=== PATIENT | female | born 1955 | race Caucasian/White ===

== ENCOUNTER 2020-03-11 07:48 | Outpatient (REF) | payer MEDICARE, OTHER, SELFPAY | END 2020-03-11 07:49 | disposition home or self-care (01) | LOC: HO.MDS 07:48 | PROVIDERS: Visit Provider Psychiatry & Neurology Neurology | DX: G35 Multiple sclerosis (principal) | CPT/HCPCS: 96365; J2930 ==

== ENCOUNTER 2020-04-05 07:46 | Outpatient (REF) | payer MEDICARE, OTHER, SELFPAY | END 2020-04-05 07:47 | disposition home or self-care (01) | LOC: HO.MDS 07:46 | PROVIDERS: Visit Provider Internal Medicine Pulmonary Disease | DX: J45.909 Unspecified asthma, uncomplicated (principal) | CPT/HCPCS: 96365; J2930 ==

== ENCOUNTER 2020-05-03 07:49 | Outpatient (REF) | payer MEDICARE, OTHER, SELFPAY | END 2020-05-03 07:50 | disposition home or self-care (01) | LOC: HO.MDS 07:49 | PROVIDERS: Visit Provider Psychiatry & Neurology Neurology | DX: G35 Multiple sclerosis (principal) | CPT/HCPCS: 96365; J2930 ==

== ENCOUNTER 2020-05-31 08:01 | Outpatient (REF) | payer MEDICARE, OTHER, SELFPAY | END 2020-05-31 08:02 | disposition home or self-care (01) | LOC: HO.MDS 08:01 | PROVIDERS: Visit Provider Psychiatry & Neurology Neurology | DX: G35 Multiple sclerosis (principal) | CPT/HCPCS: 96365; J2930 ==

== ENCOUNTER 2020-06-29 07:52 | Outpatient (REF) | payer MEDICARE, OTHER, SELFPAY | END 2020-06-29 07:53 | disposition home or self-care (01) | LOC: HO.MDS 07:52 | PROVIDERS: Visit Provider Psychiatry & Neurology Neurology | DX: G35 Multiple sclerosis (principal) | CPT/HCPCS: 96365; J2930 ==

== ENCOUNTER 2020-07-22 07:49 | Outpatient (REF) | payer MEDICARE, OTHER, SELFPAY | END 2020-07-22 07:50 | disposition home or self-care (01) | LOC: HO.MDS 07:49 | PROVIDERS: Visit Provider Psychiatry & Neurology Neurology | DX: G35 Multiple sclerosis (principal) | CPT/HCPCS: 96365; J2930 ==

== ENCOUNTER 2020-08-18 08:11 | Outpatient (REF) | payer MEDICARE, OTHER, SELFPAY | END 2020-08-18 08:12 | disposition home or self-care (01) | LOC: HO.MDS 08:11 | PROVIDERS: Visit Provider Psychiatry & Neurology Neurology | DX: G35 Multiple sclerosis (principal) | CPT/HCPCS: 96365; J2930 ==

== ENCOUNTER 2020-08-25 06:58 | Outpatient (REF) | payer MEDICARE, OTHER, SELFPAY ==
[2020-08-25 08:35] LABS: Blood Urea Nitrogen 34 mg/dL (9-16); Estimated Glomerular Filt Rate > 60
== END 2020-08-25 06:59 | disposition home or self-care (01) ==
LOC: HO.LAB 06:58
PROVIDERS: PCP Internal Medicine; Visit Provider Psychiatry & Neurology Neurology
DX: G35 Multiple sclerosis (principal)
CPT/HCPCS: 36415; 82565; 84520

== ENCOUNTER 2020-08-26 08:37 | Outpatient (REF) | payer MEDICARE, OTHER, SELFPAY ==
--- NOTE | ~2020-08-26 | MR_ITS ---
EXAMINATION: MR BRAIN WITHOUT AND WITH CONTRAST CLINICAL INFORMATION: MS. COMPARISON: Brain MRI 01/22/2009 TECHNIQUE: Multiplanar, multisequence imaging of the brain was performed before and after the intravenous administration of 8 mL of Gadavist. FINDINGS: There is no acute infarction, hemorrhage, mass, or extra-axial fluid collection. There is redemonstration of mild to moderate scattered foci of T2/FLAIR hyperintensity involving the juxtacortical, deep, and periventricular cerebral white matter in keeping with demyelinating plaques. No definitively new plaques are seen compared with 2008. A few infratentorial demyelinating plaques are seen. No enhancing plaques are seen. The ventricles are normal in size and configuration without evidence of hydrocephalus. No significant brain parenchymal volume loss is seen. The major arterial flow voids are preserved at the skull base. The orbital contents appear normal. MR/MR head/brain wo/w con IMPRESSION: Stable mild to moderate burden of scattered supratentorial and infratentorial demyelinating plaques without significant progression compared with 2009. No enhancing plaques. No acute intracranial abnormality. No mass is seen.
--- NOTE | ~2020-08-26 | MR_ITS ---
EXAMINATION: MR CERVICAL SPINE WITHOUT AND WITH CONTRAST CLINICAL INFORMATION: Multiple sclerosis. COMPARISON: Cervical spine MRI from 01/22/2009. TECHNIQUE: MRI of the cervical spine was obtained using routine sequences without and following the administration of 8 mL of Gadavist intravenous contrast. FINDINGS: Mild reversal the normal cervical lordosis centered on C4-C5. Mild degenerative retrolisthesis of C5 on C6. Advanced degenerative disc disease from C4-C7. Mild degenerative disc disease at all additional cervical levels. Associated mixed Modic type discogenic endplate changes including mild Modic type I discogenic edema from C4-C7. Mild marrow edema within the left-sided C3-C4 facets consistent with degenerative stress reaction. No additional suspicious marrow edema. Mild degenerative loss of C4 and C5 vertebral body heights. Otherwise, the vertebral body heights are well-maintained. Chronic increased T2 signal within the left lateral cord at C3 and right lateral cord at C5-C6 and C6-C7. There is also potential faintly increased T2 signal within the central/dorsal cord at the levels of C2, C3, and T2-T3. No abnormal contrast enhancement. Limited evaluation of the soft tissues of the neck without demonstrated abnormalities. The flow voids of the major cervical vessels are maintained. Normal appearance of the cervicomedullary junction and visualized posterior fossa. SPINAL LEVELS: C2-C3: Mild disc-osteophyte complex. There is no uncovertebral joint arthropathy. There is moderate bilateral facet joint arthropathy. There is no neural foraminal stenosis. There is no spinal canal stenosis. C3-C4: Mild disc-osteophyte complex. There is moderate left and no right uncovertebral joint arthropathy. There is moderate bilateral facet joint arthropathy. There is moderate left and no right neural foraminal stenosis. There is no spinal canal stenosis. C4-C5: Moderate disc-osteophyte complex. There is moderate bilateral uncovertebral joint arthropathy. There is moderate bilateral facet joint arthropathy. There is severe right and moderate left neural foraminal stenosis. There is mild spinal canal stenosis. C5-C6: Moderate disc-osteophyte complex. There is severe bilateral uncovertebral joint arthropathy. There is moderate bilateral facet joint arthropathy. There is severe bilateral neural foraminal stenosis. There is mild spinal canal stenosis. C6-C7: Mild disc-osteophyte complex. There is severe bilateral uncovertebral joint arthropathy. There is moderate bilateral facet joint arthropathy. There is severe bilateral neural foraminal stenosis. There is no spinal canal stenosis. C7-T1: Normal annular contour. There is no uncovertebral joint arthropathy. There is no facet joint arthropathy. There is no neural foraminal stenosis. There is no spinal canal stenosis. MR/MR cervical spine wo/w con IMPRESSION: 1. Chronic increased T2 signal within the cervical cord at the levels of C3, C5-C6, and C6-C7. Potential faintly increased T2 signal within the cord at the levels of C2, C3, and T2-T3 is new compared to 2009. No abnormal contrast enhancement at this time. 2. Moderate multilevel degenerative spondyloarthropathy of the cervical spine as described in detail above. Most notably, there is mild spinal canal stenosis at C4-C5 and C5-C6. Moderate to severe neural foraminal stenoses from C3-C7.
== END 2020-08-26 08:38 | disposition home or self-care (01) ==
LOC: HO.MRI 08:37
PROVIDERS: Visit Provider Psychiatry & Neurology Neurology
DX: G35 Multiple sclerosis (principal)
CPT/HCPCS: 70553; 72156; A9585

== ENCOUNTER 2020-09-15 07:49 | Outpatient (REF) | payer MEDICARE, OTHER, SELFPAY | END 2020-09-15 07:50 | disposition home or self-care (01) | LOC: HO.MDS 07:49 | PROVIDERS: PCP Internal Medicine; Visit Provider Psychiatry & Neurology Neurology | DX: G35 Multiple sclerosis (principal) | CPT/HCPCS: 96365; J2930 ==

== ENCOUNTER 2020-10-08 06:49 | Outpatient (REF) | payer MEDICARE, OTHER, SELFPAY ==
[2020-10-08 07:42] LABS: MANUAL DIFF FLAG NO
[2020-10-08 07:47] LABS: Basophils Percent Auto 0.7 % (0-2); Eosinophils Absolute Auto 0.3 X10*3/uL (0.0-0.4); Eosinophils Percent Auto 4.6 % (0-4); Hematocrit 44.1 % (37-47); Hemoglobin 13.6 g/dl (12.0-16.0); Imm Gran Abs Auto 0.01 X10*3/uL (0.00-0.03); Imm Gran Pct Auto 0.2 % (0.0-0.4); Lymphocytes Absolute Auto 1.9 X10*3/uL (1.2-4.9); Mean Corpuscular HGB Conc 30.8 g/dl (31.0-35.0); Mean Corpuscular Hemoglobin 27.7 pg (27.0-33.0); Mean Corpuscular Volume 89.8 fL (80-98); Mean Platelet Volume 10.8 fL (9.4-12.3); Monocytes Absolute Auto 0.4 X10*3/uL (0.1-1.2); Monocytes Percent Auto 6.6 % (2-11); Neutrophils Absolute Auto 3.3 X10*3/uL (2.0-8.3); Neutrophils Percent Auto 55.9 % (45-73); Platelet Count 191 X10*3/uL (160-400); Red Blood Count 4.91 X10*6/uL (4.20-5.50); Red Cell Distribution Width 13.5 % (11.0-16.0); White Blood Count 5.9 X10*3/uL (4.8-10.8)
[2020-10-08 08:12] LABS: Alanine Aminotransferase 80 U/L (0-31); Albumin Level 4.3 g/dL (3.5-5.0); Alkaline Phosphatase 98 U/L (39-117); Anion Gap 11 (12-20); Aspartate Amino Transferase 49 U/L (5-31); Bilirubin Total < 0.2 mg/dL (0.0-1.0); Blood Urea Nitrogen 40 mg/dL (9-16); Calcium 9.4 mg/dL (8.4-10.2); Carbon Dioxide 30 mmol/L (22-29); Chloride 108 mmol/L (96-108); Cholesterol 175 mg/dL; Estimated Glomerular Filt Rate > 60; Glucose Fasting 88 mg/dL (60-99); HDL Cholesterol 49 mg/dL; Potassium 4.7 mmol/L (3.3-5.1); Sodium 144 mmol/L (135-145); Total Protein 6.9 g/dL (6.5-8.0); Triglycerides 444 mg/dL
[2020-10-08 08:31] LABS: Glucose Urine UA NEG (NEG); Leukocyte Esterase Urine NEG (NEG); Nitrite Urine NEG (NEG); Urine Blood NEG (NEG); Urine Ketones NEG (NEG); Urine Protein NEG (NEG-TRACE)
[2020-10-08 08:33] LABS: TSH reflex Free T4 3.74 uIU/mL (0.32-4.0)
[2020-10-08 08:34] LABS: Appearance Urine CLEAR; Color Urine YELLOW
== END 2020-10-08 06:50 | disposition home or self-care (01) ==
LOC: HO.LAB 06:49
PROVIDERS: PCP Internal Medicine; Visit Provider Internal Medicine
DX: E78.00 Pure hypercholesterolemia, unspecified (principal); G35 Multiple sclerosis; J44.9 Chronic obstructive pulmonary disease, unspecified; K58.9 Irritable bowel syndrome, unspecified; E66.3 Overweight
CPT/HCPCS: 36415; 80053; 80061; 81003; 84443; 85025

== ENCOUNTER 2020-10-14 07:49 | Outpatient (REF) | payer MEDICARE, OTHER, SELFPAY | END 2020-10-14 07:50 | disposition home or self-care (01) | LOC: HO.MDS 07:49 | PROVIDERS: PCP Internal Medicine; Visit Provider Psychiatry & Neurology Neurology | DX: G35 Multiple sclerosis (principal) | CPT/HCPCS: 96365; J2930 ==

== ENCOUNTER 2020-11-11 07:43 | Outpatient (REF) | payer MEDICARE, OTHER, SELFPAY | END 2020-11-11 07:44 | disposition home or self-care (01) | LOC: HO.MDS 07:43 | PROVIDERS: PCP Internal Medicine; Visit Provider Psychiatry & Neurology Neurology | DX: G35 Multiple sclerosis (principal) | CPT/HCPCS: 96365; J2930 ==

== ENCOUNTER 2020-11-16 08:07 | Outpatient (REF) | payer MEDICARE, OTHER, SELFPAY ==
--- NOTE | ~2020-11-16 | XR_ITS ---
EXAMINATION: XR KNEES, STANDING AP XR KNEE, RIGHT CLINICAL INFORMATION: Right knee pain COMPARISON: Standing AP knees and right knee radiographs 06/09/2016. TECHNIQUE: Standing AP view of both knees is performed along with lateral and axial patella views of the right knee. FINDINGS: Right: There are osteoarthritic changes medial knee joint compartment with joint narrowing and spurring from the medial femoral condyle and medial tibial plateau. Osteophytes have progressed since prior imaging 2017. The lateral compartment shows chondrocalcinosis lateral meniscus. There is trace fluid suprapatellar bursa. Spurring at quadriceps insertion patella present. Patella shows no lateralization or tilting. There is no destructive process. Left: No definite knee joint compartment narrowing. No subchondral sclerosis or chondrocalcinosis. No destructive process. XR/XR knee standing BI IMPRESSION: Right: Osteoarthritic changes greatest medial compartment with joint narrowing and osteophytes. Lateral compartment meniscal chondrocalcinosis. Trace suprapatellar effusion. Left: No joint narrowing or visible chondrocalcinosis.
--- NOTE | ~2020-11-16 | XR_ITS ---
EXAMINATION: XR KNEES, STANDING AP XR KNEE, RIGHT CLINICAL INFORMATION: Right knee pain COMPARISON: Standing AP knees and right knee radiographs 06/09/2016. TECHNIQUE: Standing AP view of both knees is performed along with lateral and axial patella views of the right knee. FINDINGS: Right: There are osteoarthritic changes medial knee joint compartment with joint narrowing and spurring from the medial femoral condyle and medial tibial plateau. Osteophytes have progressed since prior imaging 2017. The lateral compartment shows chondrocalcinosis lateral meniscus. There is trace fluid suprapatellar bursa. Spurring at quadriceps insertion patella present. Patella shows no lateralization or tilting. There is no destructive process. Left: No definite knee joint compartment narrowing. No subchondral sclerosis or chondrocalcinosis. No destructive process. XR/XR knee RT 2V IMPRESSION: Right: Osteoarthritic changes greatest medial compartment with joint narrowing and osteophytes. Lateral compartment meniscal chondrocalcinosis. Trace suprapatellar effusion. Left: No joint narrowing or visible chondrocalcinosis.
== END 2020-11-16 08:08 | disposition home or self-care (01) ==
LOC: HO.HOSX 08:07
PROVIDERS: Visit Provider Orthopaedic Surgery
DX: M17.11 Unilateral primary osteoarthritis, right knee (principal)
CPT/HCPCS: 20610; 73560; 73565; 99212; J1040

== ENCOUNTER 2020-12-09 07:46 | Outpatient (REF) | payer MEDICARE, OTHER, SELFPAY | END 2020-12-09 07:47 | disposition home or self-care (01) | LOC: HO.MDS 07:46 | PROVIDERS: PCP Internal Medicine; Visit Provider Psychiatry & Neurology Neurology | DX: G35 Multiple sclerosis (principal) | CPT/HCPCS: 96365; J2930 ==

== ENCOUNTER 2020-12-15 06:10 | Outpatient (REF) | payer MEDICARE, OTHER, SELFPAY ==
--- NOTE | ~2020-12-15 | XR_ITS ---
EXAMINATION: XR FOOT, LEFT CLINICAL INFORMATION: Pain left foot. COMPARISON: May 23, 2017 TECHNIQUE: AP, lateral, and oblique views of the left foot. FINDINGS: There is some deformity from previous healed left first proximal phalanx fracture. No acute fracture or dislocation of the left foot is identified. The joint spaces are maintained. No significant soft tissue swelling is appreciated. Small Achilles calcaneal spur present. XR/XR foot LT min 3V IMPRESSION: No significant acute bony abnormality of the left foot identified.
== END 2020-12-15 06:11 | disposition home or self-care (01) ==
LOC: HO.HOSX 06:10
PROVIDERS: Visit Provider Physician Assistant
DX: M79.672 Pain in left foot (principal); S93.602A Unspecified sprain of left foot, initial encounter
CPT/HCPCS: 73630; 99202

== ENCOUNTER 2021-01-06 08:17 | Outpatient (REF) | payer MEDICARE, OTHER, SELFPAY | END 2021-01-06 08:18 | disposition home or self-care (01) | LOC: HO.MDS 08:17 | PROVIDERS: Visit Provider Psychiatry & Neurology Neurology | DX: G35 Multiple sclerosis (principal) | CPT/HCPCS: 96365; J2930 ==

== ENCOUNTER 2021-01-11 05:59 | Outpatient (REF) | payer MEDICARE, OTHER, SELFPAY ==
[2021-01-11 07:11] LABS: Alanine Aminotransferase 39 U/L (0-31); Albumin Level 4.4 g/dL (3.5-5.0); Alkaline Phosphatase 77 U/L (39-117); Anion Gap 12 (12-20); Aspartate Amino Transferase 30 U/L (5-31); Bilirubin Total 0.4 mg/dL (0.0-1.0); Blood Urea Nitrogen 30 mg/dL (9-16); Calcium 9.3 mg/dL (8.4-10.2); Carbon Dioxide 29 mmol/L (22-29); Chloride 107 mmol/L (96-108); Cholesterol 159 mg/dL; Estimated Glomerular Filt Rate > 60; Glucose Fasting 89 mg/dL (60-99); HDL Cholesterol 52 mg/dL; LDL Cholesterol Calculated 76 mg/dl; Potassium 4.1 mmol/L (3.3-5.1); Sodium 144 mmol/L (135-145); Total Protein 6.9 g/dL (6.5-8.0); Triglycerides 158 mg/dL
== END 2021-01-11 06:00 | disposition home or self-care (01) ==
LOC: HO.LAB 05:59
PROVIDERS: PCP Internal Medicine; Visit Provider Internal Medicine
DX: E78.00 Pure hypercholesterolemia, unspecified (principal)
CPT/HCPCS: 36415; 80053; 80061

== ENCOUNTER 2021-02-03 08:14 | Outpatient (REF) | payer MEDICARE, OTHER, SELFPAY | END 2021-02-03 08:15 | disposition home or self-care (01) | LOC: HO.MDS 08:14 | PROVIDERS: PCP Internal Medicine; Visit Provider Psychiatry & Neurology Neurology | DX: G35 Multiple sclerosis (principal) | CPT/HCPCS: 96365; J2930 ==

== ENCOUNTER 2021-03-03 07:48 | Outpatient (REF) | payer MEDICARE, OTHER, SELFPAY | END 2021-03-03 07:49 | disposition home or self-care (01) | LOC: HO.MDS 07:48 | PROVIDERS: PCP Internal Medicine; Visit Provider Psychiatry & Neurology Neurology | DX: G35 Multiple sclerosis (principal) | CPT/HCPCS: 96365; J2930 ==

== ENCOUNTER → 2021-03-10 11:57 | Outpatient (BNVA) | payer MEDICARE, OTHER, SELFPAY | PROVIDERS: Visit Provider Orthopaedic Surgery | DX: Z01.818 Encounter for other preprocedural examination (principal); M17.11 Unilateral primary osteoarthritis, right knee; G35 Multiple sclerosis; E78.00 Pure hypercholesterolemia, unspecified; Z87.891 Personal history of nicotine dependence; Z88.6 Allergy status to analgesic agent; Z88.8 Allergy status to other drugs, medicaments and biological substances; T78.49XA Other allergy, initial encounter | CPT/HCPCS: 99212 ==

== ENCOUNTER → 2021-03-25 09:28 | Outpatient (BNVA) | payer MEDICARE, OTHER, SELFPAY | PROVIDERS: PCP Internal Medicine; Visit Provider Orthopaedic Surgery | DX: M17.11 Unilateral primary osteoarthritis, right knee (principal); M25.561 Pain in right knee | CPT/HCPCS: 20610; 99212; J7318 ==

== ENCOUNTER 2021-03-31 07:46 | Outpatient (REF) | payer MEDICARE, OTHER, SELFPAY | END 2021-03-31 07:47 | disposition home or self-care (01) | LOC: HO.MDS 07:46 | PROVIDERS: PCP Internal Medicine; Visit Provider Psychiatry & Neurology Neurology | DX: G35 Multiple sclerosis (principal) | CPT/HCPCS: 96365; J2930 ==

== ENCOUNTER 2021-04-28 07:46 | Outpatient (REF) | payer MEDICARE, OTHER, SELFPAY | END 2021-04-28 07:47 | disposition home or self-care (01) | LOC: HO.MDS 07:46 | PROVIDERS: PCP Internal Medicine; Visit Provider Psychiatry & Neurology Neurology | DX: G35 Multiple sclerosis (principal) | CPT/HCPCS: 96365; J2930 ==

== ENCOUNTER → 2021-05-23 10:57 | Outpatient (BNVA) | payer MEDICARE, OTHER, SELFPAY | PROVIDERS: PCP Internal Medicine; Visit Provider Orthopaedic Surgery | DX: Z01.812 Encounter for preprocedural laboratory examination (principal); Z01.810 Encounter for preprocedural cardiovascular examination ==

== ENCOUNTER 2021-05-24 09:08 | Outpatient (REF) | payer MEDICARE, OTHER, SELFPAY ==
--- NOTE | 2021-05-24 09:17 | ECG_ITS ---
Test Reason : preop Blood Pressure : / mmHG Vent. Rate : 073 BPM Atrial Rate : 073 BPM P-R Int : 148 ms QRS Dur : 078 ms QT Int : 360 ms P-R-T Axes : 060 009 -10 degrees QTc Int : 396 ms Normal sinus rhythm Nonspecific ST abnormality Abnormal ECG When compared with ECG of 16-MAY-2019 08:45, T wave inversion no longer evident in Anterolateral leads Referred By: Jonathon Rodarte Electronically Signed By:MAGGIE ENGLE
[2021-05-24 09:26] LABS: MANUAL DIFF FLAG NO
[2021-05-24 09:35] LABS: Basophils Absolute Auto 0.1 X10*3/uL (0.0-0.2); Basophils Percent Auto 0.8 % (0-2); Eosinophils Absolute Auto 0.3 X10*3/uL (0.0-0.4); Eosinophils Percent Auto 4.2 % (0-4); Hematocrit 40.3 % (37.0-47.0); Hemoglobin 13.1 g/dl (12.0-16.0); Imm Gran Abs Auto 0.01 X10*3/uL (0.00-0.03); Imm Gran Pct Auto 0.2 % (0.0-0.4); Lymphocytes Absolute Auto 1.9 X10*3/uL (1.2-4.9); Lymphocytes Percent Auto 31.9 % (20-40); Mean Corpuscular HGB Conc 32.5 g/dl (31.0-35.0); Mean Corpuscular Hemoglobin 29.1 pg (27.0-33.0); Mean Corpuscular Volume 89.6 fL (80.0-98.0); Mean Platelet Volume 10.2 fL (9.4-12.3); Monocytes Absolute Auto 0.4 X10*3/uL (0.1-1.2); Monocytes Percent Auto 7.5 % (2-11); Neutrophils Absolute Auto 3.3 x10*3/uL (2.0-8.3); Neutrophils Percent Auto 55.4 % (45-73); Platelet Count 199 X10*3/uL (160-400); Red Cell Distribution Width 13.1 % (11.0-16.0); White Blood Count 5.9 X10*3/uL (4.8-10.8)
[2021-05-24 10:03] LABS: Alanine Aminotransferase 32 U/L (0-31); Albumin Level 4.4 g/dL (3.5-5.0); Alkaline Phosphatase 65 U/L (39-117); Anion Gap 14 (12-20); Aspartate Amino Transferase 25 U/L (5-31); Bilirubin Total 0.2 mg/dL (0.0-1.0); Blood Urea Nitrogen 34 mg/dL (9-16); Calcium 9.4 mg/dL (8.4-10.2); Carbon Dioxide 23 mmol/L (22-29); Chloride 112 mmol/L (96-108); Cholesterol 154 mg/dL; Estimated Glomerular Filt Rate 59; Glucose Fasting 99 mg/dL (60-99); HDL Cholesterol 44 mg/dL; LDL Cholesterol Calculated 50 mg/dl; Potassium 3.8 mmol/L (3.3-5.1); Sodium 145 mmol/L (135-145); Total Protein 6.9 g/dL (6.5-8.0); Triglycerides 304 mg/dL
[2021-05-24 10:25] LABS: TSH reflex Free T4 2.18 uIU/mL (0.32-4.0); Vitamin D 25-OH Total 28.6 ng/mL (>30)
[2021-05-24 11:33] LABS: Appearance Urine CLEAR; Color Urine YELLOW; Glucose Urine UA NEG (NEG); Leukocyte Esterase Urine NEG (NEG); Nitrite Urine NEG (NEG); Specific Gravity - Urine >= 1.030 (1.005-1.025); Urine Blood NEG (NEG); Urine Ketones NEG (NEG); Urine Protein NEG (NEG-TRACE)
== END 2021-05-24 09:09 | disposition home or self-care (01) ==
LOC: HO.LAB 09:08
PROVIDERS: PCP Internal Medicine; Visit Provider Orthopaedic Surgery
DX: Z01.810 Encounter for preprocedural cardiovascular examination (principal); Z01.812 Encounter for preprocedural laboratory examination; E55.9 Vitamin D deficiency, unspecified; I10 Essential (primary) hypertension; E78.00 Pure hypercholesterolemia, unspecified
CPT/HCPCS: 36415; 80048; 80053; 80061; 81003; 82306; 84443; 85025; 93005

== ENCOUNTER 2021-05-26 07:51 | Outpatient (REF) | payer MEDICARE, OTHER, SELFPAY | END 2021-05-26 07:52 | disposition home or self-care (01) | LOC: HO.MDS 07:51 | PROVIDERS: PCP Internal Medicine; Visit Provider Psychiatry & Neurology Neurology | DX: G35 Multiple sclerosis (principal) | CPT/HCPCS: 96365; J2930 ==

== ENCOUNTER 2021-06-08 08:00 | Outpatient (RCR) | payer MEDICARE, OTHER, SELFPAY ==
--- NOTE | 2021-06-01 08:51 | MHC.PT.EP ---
[facility] [place] [facility] [place] [facility] [place] [facility] [address] Bhavani Ferraro [address] [phone] F: [phone] F: [phone] F: [phone] F: [phone] Physical Therapy Plan of Care Date of Evaluation: Date of Surgery: Diagnosis: OA of R knee prehab Assessment: 66 y/o F referred to PT for R TKA prehab due to knee OA. She lives with her partner in a 2-level home with bedroom and full bath on second floor. Pain and difficulty with walking, stairs (step to pattern), squatting, getting in/out of shower, and offset printer. PMH significant for MS with R LE more involved. Examination shows decreased R knee AROM 0-112, decreased B LE strength, hypomobile patella mobility, decreased HS/gastroc length, and impaired gait pattern. Recommend PT 1x/week for 2 weeks to implement HEP, prepare for upcoming TKA, and optimize functional mobility. Pt was educated on use of ice and elevation 3-5x/day following surgery, knee ROM and quad strengthening exercises, and expectations following surgery from PT. Frequency and Duration: The patient will be seen 1x/week for 2 weeks Short Term Goals: 1. I with HEP 2. Improve R knee flexion to 118 Group Home Goals: 1. I with HEP and self management of sx 2. Pt will perform stairs correctly for upcoming stairs with 'up with the good, down with the bad and use of rail Treatment Plan: Modalities to reduce pain, spasms and effusion. Manual therapy to restore motion and function. Therapeutic exercise to improve strength and flexibility. Neuromuscular re-education for posture and balance. Therapeutic activities to return to functional activities of daily living. Electronically signed by: Lorna Chaparro PT Please sign and return to therapist. Thank you for your referral.
--- NOTE | 2021-06-08 09:09 | MHC.PT.DC ---
[facility] [place] [facility] [place] Office [place] Office [address] Bhavani Ferraro [address] [phone] F: [phone] F: [phone] F: [phone] F: [phone] Physical Therapy Discharge Report Diagnosis: OA of R knee prehab Date of Surgery: Date of Evaluation: 06/01/21 Date of Discharge: 06/08/21 Treatments to Date: 2 Cancellations to Date: 0 No Shows to Date: 0 Discharge Status: Independent with HEP Discharge Summary: We reviewed HEP thus far and needed cues to decrease pace and let muscle rest between reps for improved muscle activation. Reviewed stair management following surgery with good carryover. No further questions at this time and she is d/c for upcoming TKA. Electronically signed by: Lorna Chaparro PT Please sign and return to therapist. Thank you for your referral.
== END 2021-06-08 09:09 | disposition home or self-care (01) ==
LOC: HO.PT 08:00
PROVIDERS: PCP Internal Medicine; Visit Provider Orthopaedic Surgery
DX: M17.11 Unilateral primary osteoarthritis, right knee (principal)
CPT/HCPCS: 97110; 97161

== ENCOUNTER → 2021-06-16 13:20 | Outpatient (BNVA) | payer MEDICARE, OTHER, SELFPAY | PROVIDERS: Visit Provider Physician Assistant | DX: M17.11 Unilateral primary osteoarthritis, right knee (principal) | CPT/HCPCS: 99212 ==

== ENCOUNTER 2021-06-21 05:57 | Day surgery (SDC) | payer MEDICARE, OTHER, SELFPAY ==
[2021-06-13 12:00] VITALS: BP 143/82; PULSE 75; RESP 20; O2SAT 95; BMI 31.3
--- NOTE | 2021-06-13 12:08 | P.CONAN_ITS ---
Documented by User: Laureen Hayes NP 06/20/21 10:55 HPI - Anesthesia Eval Consult details Narrative: 66yo F for Right Knee Replacement Total PCP cleared Monthly solumedrol infusion for MS. Last 05/26/21. PMF Active Problems Active Problems: All Active Problems (Updated 06/13/21 @ 11:40 by Ember Maher RN) Primary osteoarthritis of right knee (Acute) Right foot sprain (Acute) Preoperative examination (Acute) Restless leg syndrome (Acute) Obesity (BMI 30-39.9) (Acute) Anxiety (Acute) Bipolar depression (Acute) Irritable bowel syndrome (IBS) (Acute) Multiple sclerosis (Acute) Chronic obstructive pulmonary disease (COPD) (Acute) Overweight (BMI 25.0-29.9) (Acute) Pure hypercholesterolemia (Acute) Past Medical History Medical History Anxiety Bipolar depression Chronic obstructive pulmonary disease (COPD) Irritable bowel syndrome (IBS) Multiple sclerosis Normal colonoscopy Obesity (BMI 30-39.9) Pure hypercholesterolemia Patient : No Family History Family History Mother Lung cancer, Onset Age: 56 Father Heart problem Family history of problems with anesthesia: No Surgical History Surgical History H/O knee surgery History of back surgery History of tubal ligation Hx of arthroscopic knee surgery Hx of colonoscopy Social History Social History (Updated 06/16/21 @ 13:36 by Michael Owens) Housing: Apartment Are you a primary respiratory care program director to a significant other at home: No Do you presently have visiting nurse or other home services: No Alcohol intake: never Patient Tobacco Use Status: Former Tobacco user Quit Date: 5 yrs ago Tobacco use type: Cigarette Second Hand Smoke Exposure: No Use of substances other than those prescribed or required for medical reasons: No Have you been hit, kicked, punched, or otherwise hurt by someone within the past year? 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 Narrative Narrative: No recent illness No SOB/CP with >4mets Meds Allergies Allergy/AdvReac Type Severity Reaction Status Date / Time codeine [Codeine] AdvReac Mild UPSET Verified 06/16/21 13:25 STOMACH AND BAD DREAMS Home Medications Medication Instructions Recorded Confirmed Last Taken Type aripiprazole 30 mg tablet (Abilify) 30 mg PO DAILY 06/18/20 06/10/21 06/21/21 History buspirone 10 mg tablet 20 mg PO TID 06/18/20 06/10/21 06/21/21 History carisoprodol 350 mg tablet 350 mg PO TID 06/18/20 06/10/21 Unknown History escitalopram oxalate 20 mg tablet 20 mg PO DAILY 06/18/20 06/10/21 Unknown History (Lexapro) gabapentin 600 mg tablet 600 mg PO TID 06/18/20 06/10/21 06/21/21 History hydroxyzine pamoate 50 mg capsule 50 mg PO BID 06/18/20 06/13/21 Unknown History lorazepam 2 mg tablet 2 mg PO BID PRN 06/18/20 06/10/21 Unknown History mirtazapine 45 mg tablet 45 mg PO BEDTIME 06/18/20 06/10/21 Unknown History bupropion HCl 200 mg tablet,12 hr 200 mg PO BID tab 07/13/20 06/10/21 06/21/21 History sustained-release pramipexole 0.5 mg tablet 0.5 mg PO BEDTIME 06/02/21 06/10/21 Unknown History Exam Exam Date and Time: June 13, 2021 1208 Height,Weight and Vital Signs: Height 5 ft 3 in Weight 80.286 kg Last Vital Signs Pulse 75 06/13/21 12:00 Resp 20 06/13/21 12:00 BP 143/82 H 06/13/21 12:00 Pulse Ox 95 06/13/21 12:00 Pertinent Lab Results Pertinent Lab Results: Laboratory Tests 05/24/21 05/24/21 09:24 09:25 WBC 5.9 Hgb 13.1 Hct 40.3 Plt Count 199 Sodium 145 Potassium 3.8 Chloride 112 H Carbon Dioxide 23 BUN 34 H Creatinine 0.96 Narrative Narrative: EKG 05/2021 Vent. Rate : 073 BPM ? ? Atrial Rate : 073 BPM ?? P-R Int : 148 ms? QRS Dur : 078 ms ? ? QT Int : 360 ms ? ? ? P-R-T Axes : 060 009 -10 degrees ?? QTc Int : 396 ms ? Normal sinus rhythm Nonspecific ST abnormality Abnormal ECG When compared with ECG of 16-MAY-2019 08:45, T wave inversion no longer evident in Anterolateral leads Airway Mallampati Class: III (Limited mouth opening, small mouth) TM Dist: >3cm Neck ROM: Full Denture: Upper Adult Head Mouth w/Numbe Teeth: 1. Chipped Loose/Missing/Broken Teeth: Yes Heart: RRR Lungs: CTAB Assessment and Plan Assessment Anesthesia Assessment: Anesthesia Plan Discussed (Spinal / Block) and PAT Visit Final Anesthetic Review Family History of Problems with Anesthesia: No Documented by User: Aidan Mueller MD 06/21/21 10:05 [facility] Past Medical History Medical History Anxiety Bipolar depression Chronic obstructive pulmonary disease (COPD) Irritable bowel syndrome (IBS) Multiple sclerosis Normal colonoscopy Obesity (BMI 30-39.9) Pure hypercholesterolemia Family History Family History Mother Lung cancer, Onset Age: 56 Father Heart problem Surgical History Surgical History H/O knee surgery History of back surgery History of tubal ligation Hx of arthroscopic knee surgery Hx of colonoscopy History of Problems with Anesthesia: No Social History Social History (Updated 06/16/21 @ 13:36 by Michael Owens) Housing: Apartment Are you a primary respiratory care program director to a significant other at home: No Do you presently have visiting nurse or other home services: No Alcohol intake: never Patient Tobacco Use Status: Former Tobacco user Quit Date: 5 yrs ago Tobacco use type: Cigarette Second Hand Smoke Exposure: No Use of substances other than those prescribed or required for medical reasons: No Have you been hit, kicked, punched, or otherwise hurt by someone within the past year? 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 Meds Allergies Allergy/AdvReac Type Severity Reaction Status Date / Time codeine [Codeine] AdvReac Mild UPSET Verified 06/16/21 13:25 STOMACH AND BAD DREAMS Home Medications Medication Instructions Recorded Confirmed Last Taken Type aripiprazole 30 mg tablet (Abilify) 30 mg PO DAILY 06/18/20 06/10/21 06/21/21 History buspirone 10 mg tablet 20 mg PO TID 06/18/20 06/10/21 06/21/21 History carisoprodol 350 mg tablet 350 mg PO TID 06/18/20 06/10/21 Unknown History escitalopram oxalate 20 mg tablet 20 mg PO DAILY 06/18/20 06/10/21 Unknown History (Lexapro) gabapentin 600 mg tablet 600 mg PO TID 06/18/20 06/10/21 06/21/21 History hydroxyzine pamoate 50 mg capsule 50 mg PO BID 06/18/20 06/13/21 Unknown History lorazepam 2 mg tablet 2 mg PO BID PRN 06/18/20 06/10/21 Unknown History mirtazapine 45 mg tablet 45 mg PO BEDTIME 06/18/20 06/10/21 Unknown History bupropion HCl 200 mg tablet,12 hr 200 mg PO BID tab 07/13/20 06/10/21 06/21/21 History sustained-release pramipexole 0.5 mg tablet 0.5 mg PO BEDTIME 06/02/21 06/10/21 Unknown History Exam Airway Adult Head Mouth w/Numbe Teeth: 1. Chipped Assessment and Plan Final Anesthetic Review History of Problems with Anesthesia: No NPO: Yes ASA Class: III Final Preanesthetic Review: No Changes in Pt Med Stat, Meds/Allgs Chart Reviewed, Consent Obtained/Reviewed and Anes Risks/Benef Reviewed Patient Risk: Intermediate Anesthetic Plan Anesthetic Plan: MAC:, Spinal and Regional Block Disposition: Standard PACU
[2021-06-13 16:01] LABS: MRSA Nasal PCR NEGATIVE (Negative); SA Nasal PCR POSITIVE (Negative)
[2021-06-21] VITALS (17 sets, daily range): BP systolic 82–128; BP diastolic 49–86; PULSE 63–92; RESP 16–20; TEMP 36.4–37.7; O2SAT 91–100
--- NOTE | ~2021-06-21 | XR_ITS ---
EXAMINATION: XR KNEE, RIGHT CLINICAL INFORMATION: Post knee replacement COMPARISON: Previous x-ray November 2020 TECHNIQUE: Two views of the right knee. FINDINGS: There is a new 3 component right knee replacement in satisfactory position. No fracture or dislocation is seen. There are postoperative changes to the soft tissues. XR/XR knee RT 2V IMPRESSION: Satisfactory appearance of right knee replacement.
[2021-06-21 06:32] LABS: COVID-19 Test Negative (Negative); IDNOW Serial# 9DD0AD1C
[2021-06-21] MEDS: Lactated Ringers 1,000 ML 100 ML IVCONT (06:33)
[2021-06-21] MEDS: Albuterol Sulfate (0.083%) 2.5 MG/3 ML VIAL.NEB INHALE (06:45)
--- NOTE | 2021-06-21 06:46 | PC.NURSE ---
pt 02 sats 91-95 ra pt has copd resp called for tx. pt aware ls diminished clear
--- NOTE | 2021-06-21 07:08 | PC.NURSE ---
pt sts 02sat normally runs 89-95% doesnot use oxygen at home anesthesia aware. oxygen applied at 1 liter no sob noted
--- NOTE | 2021-06-21 07:30 | MHC.SHP ---
Pre-Procedural Eval Section A Date of Service: 06/21/21 The patient is an INPATIENT: No Changes since office visit: Yes Patient answered all questions; No Cold of Flu in the past 2 weeks, No New Medical Problems and No Changes in Medication The History & Physical has been completed within 30 days and I have reviewed it.: Yes Section B Chief Complaint: rt tka Allergies: Allergies Allergy/AdvReac Type Severity Reaction Status Date / Time codeine [Codeine] AdvReac Mild UPSET Verified 06/16/21 13:25 STOMACH AND BAD DREAMS Plan I have reviewed the history and physical and performed a pertinent physical examination on my patient. No changes have occurred unless specified.
--- NOTE | 2021-06-21 09:24 | P.BOP_ITS ---
Brief Operative Note Date of Service: 06/21/21 Pre-op diagnosis: Right knee OA Post-op diagnosis: same Procedure: Right TKA Implants: Kacy triathalon press fir cruciate retaining 07/14/10 Surgeon: Jonathon Rodarte MD Anesthesia: regional and spinal Was an Fiberglass Boat Finisher used for this Procedure?: Yes Fiberglass Boat Finisher: Massimo Pratt Estimated blood loss (mL): 100 IV fluids (mL): 1,000 Pathology: none sent Condition: stable Disposition: PACU
--- NOTE | 2021-06-21 09:25 | P.OP_ITS ---
Operative Note Operative Note Date of Service: 06/21/21 Narrative: Date of Service: 06/21/21 Pre-op diagnosis: right knee OA Post-op diagnosis: same Procedure: Right TKA Implants: Lando triathalon press fit cruciate retaining 07/14/10 Surgeon: Jonathon Rodarte MD Anesthesia: regional and spinal Was an Physical Therapist Assistant used for this Procedure?: Yes Physical Therapist Assistant: Massimo Pratt Estimated blood loss (mL): 100 IV fluids (mL): 1,000 Pathology: other Condition: stable Disposition: PACU Procedure in detail: The patient was brought to the operating room and prepped and draped in standard sterile fashion. A time-out was called to identify proper site proper procedure proper surgeon and IV antibiotics were administered. 1 g of IV tranexamic acid was administered. I began by making a midline incision to the retinaculum and performed a medial parapatellar arthrotomy. The patella was translated laterally and the knee was flexed up.The medial . I performed a small medial peel and resected the infrapatellar fat pad. Stanton's line was then used to drill my intramedullary femoral guide and my distal femur cut of 10 mm was made in 5 degrees of valgus while protecting the soft tissues. I then measured a # 3 femur and placed my cutting guide and made my anterior posterior and chamfer c uts protecting the soft tissues at all times. Once I was satisfied with my cuts I turned my attention to the tibia. I removed the meniscus medially and laterally and , using an external cutting guide, in line with the tibial crest and the third ray, I made my distal tibial cut in 3 deg slope of while protecting the PCL the posterior soft tissues at all times. An extension block was used to confirm appropriate amount of bony resection. I then sized a #3 tibia and once I was satisfied that there was complete tibial coverage I placed my trial and with the trial femur in place took the knee through range of motion. I was satisfied with the extension and flexion as well as the stability at 0, 30 and 90 degrees. I then turned my attention to the patella where I removed 1 cm from the undersurface of the patella and then trialed a 29a patellar button. Again the knee was taken through range of motion I was satisfied with the tracking. I then returned to the femur and drilled my femoral lug holes and prepared the tibia. A femoral bone plug was placed and the knee was irrigated copiously. I then press fit the patella, tibia and femur in standard fashion. I trialed different inserts until I selected a #11 insert. On final range of motion the knee has 0-130 deg of motion. It was balanced and stable to varus/vlagus stress at 0,30 and 90 deg with no tray lift off and excellent patellar tracking. The final insert was placed and a 3 minutes iodine soak with local TXA was performed. The knee was then closed with a running Quill suture, a 3 0 Vicryl and rebeka on the skin. Patient was then placed in sterile dressing and brought to recovery room in stable condition there were no known complications.
[2021-06-21] MEDS: Dextrose 5 % and 0.45 % NaCl 1,000 ML 80 ML IVCONT ×2 (10:03→22:54)
--- NOTE | 2021-06-21 11:35 | PHA.MEDREC ---
Pharmacy Consult ? Medication Reconciliation RN completed the medication reconciliation, Pharmacy reviewed.
[2021-06-21] MEDS: oxyCODONE HCl Immed Release 5 MG TABLET PO ×3 (11:42→23:08)
[2021-06-21] MEDS: Ketorolac Tromethamine 30 MG/ML VIAL 15 MG IVPUSH (11:45)
--- NOTE | 2021-06-21 12:55 | PM.IMCN ---
History of Present Illness Data of Consult Service Date: 06/21/21 Primary Care Provider: Sreedhar Patricia MD HPI Reason for consult: bipolar 66F admitted for elective right knee arthroplasty for osteoarthritis. patient seen postoperatively, denies sob, chest pain. pain controlled. patient has history of bipolar, controlled with meds, and MS on gabapentin and monthly infusions. Review of Systems Review of Systems: Yes all other systems are reviewed and are negative [facility] Medical History Anxiety Bipolar depression Chronic obstructive pulmonary disease (COPD) Irritable bowel syndrome (IBS) Multiple sclerosis Normal colonoscopy Obesity (BMI 30-39.9) Pure hypercholesterolemia Family History Mother Lung cancer, Onset Age: 56 Father Heart problem Surgical History H/O knee surgery History of back surgery History of tubal ligation Hx of arthroscopic knee surgery Hx of colonoscopy Social History Housing: Apartment Are you a primary assurance services manager health care to a significant other at home: No Do you presently have visiting nurse or other home services: No Alcohol intake: never Patient Tobacco Use Status: Former Tobacco user Quit Date: 5 yrs ago Tobacco use type: Cigarette Second Hand Smoke Exposure: No Use of substances other than those prescribed or required for medical reasons: No Have you been hit, kicked, punched, or otherwise hurt by someone within the past year? 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 Meds Allergies Allergy/AdvReac Type Severity Reaction Status Date / Time codeine [Codeine] AdvReac Mild UPSET Verified 06/16/21 13:25 STOMACH AND BAD DREAMS Active Medications: Current Medications Acetaminophen (Acetaminophen 325 Mg Tablet) 650 mg PO Q6H PRN PRN Reason: Pain, Mild (Pain Scale 1-3) Aripiprazole (Aripiprazole 30 Mg Tablet) 30 mg PO DAILY [facility] Atorvastatin Calcium (Atorvastatin Calcium 40 Mg Tablet) 40 mg PO DAILY [facility] Bupropion HCl (Bupropion Hcl Xl 150 Mg Tab.Er.24h) 450 mg PO DAILY [facility] Buspirone HCl (Buspirone Hcl 10 Mg Tablet) 20 mg PO TID [facility] Carisoprodol (Carisoprodol 350 Mg Tablet) 350 mg PO TID [facility] Celecoxib (Celecoxib 200 Mg Capsule) 200 mg PO BID [facility] Docusate Sodium (Docusate Sodium 100 Mg Capsule) 100 mg PO BID [facility] Escitalopram Oxalate (Escitalopram Oxalate 20 Mg Tablet) 20 mg PO DAILY [facility] Gabapentin (Gabapentin 600 Mg Tablet) 600 mg PO TID [facility] Hydromorphone HCl (Hydromorphone Hcl 0.5 Mg/0.5 Ml Syringe) 0.5 mg IVPUSH Q5M PRN; Protocol PRN Reason: Pain, Severe (Pain Scale 7-10) Hydromorphone HCl (Hydromorphone Hcl 0.5 Mg/0.5 Ml Syringe) 0.25 mg IVPUSH Q4H PRN; Protocol PRN Reason: Pain, Severe (Pain Scale 7-10) Hydroxyzine HCl (Hydroxyzine Hcl 50 Mg Tablet) 50 mg PO BID [facility] Dextrose/Sodium Chloride (D51/2ns) 1,000 mls @ 80 mls/hr IVCONT .[id number] [facility] Last Admin: 06/21/21 10:03 Dose: 80 mls/hr Documented by: Cefazolin Sodium/Dextrose (Ancef) 2 gm in 50 mls @ 100 mls/hr IV POSTOP ONE Stop: 06/21/21 14:29 Lorazepam (Lorazepam 1 Mg Tablet) 2 mg PO BID PRN PRN Reason: Anxiety Mirtazapine (Mirtazapine 15 Mg Tablet) 45 mg PO BEDTIME [facility] Montelukast Sodium (Montelukast Sodium 10 Mg Tablet) 10 mg PO DAILY [facility] Non-Formulary Medication (Pramipexole) 0.5 mg PO BEDTIME [facility] Ondansetron HCl (Ondansetron Hcl 4 Mg/2 Ml Vial) 4 mg IVPUSH ONCE PRN PRN Reason: Nausea and Vomiting Ondansetron HCl (Ondansetron Hcl 4 Mg/2 Ml Vial) 4 mg IVPUSH Q8H PRN PRN Reason: Nausea and Vomiting Oxycodone HCl (Oxycodone Hcl Immed Release 5 Mg Tablet) 5 mg PO Q4H PRN PRN Reason: Pain, Moderate (Pain Scale 4-6 Oxycodone HCl (Oxycodone Hcl Er 10 Mg Tab.Er.12h) 10 mg PO BID [facility] Sodium Chloride (0.9 % Sodium Chloride Flush 3 Ml Syringe) 3 ml IVFLUSH QSHIFT [facility] Home Medications Medication Instructions Recorded Confirmed Last Taken Type aripiprazole 30 mg tablet (Abilify) 30 mg PO DAILY 06/18/20 06/10/21 06/21/21 History buspirone 10 mg tablet 20 mg PO TID 06/18/20 06/10/21 06/21/21 History carisoprodol 350 mg tablet 350 mg PO TID 06/18/20 06/10/21 Unknown History escitalopram oxalate 20 mg tablet 20 mg PO DAILY 06/18/20 06/10/21 Unknown History (Lexapro) gabapentin 600 mg tablet 600 mg PO TID 06/18/20 06/10/21 06/21/21 History hydroxyzine pamoate 50 mg capsule 50 mg PO BID 06/18/20 06/13/21 Unknown History lorazepam 2 mg tablet 2 mg PO BID PRN 06/18/20 06/10/21 Unknown History mirtazapine 45 mg tablet 45 mg PO BEDTIME 06/18/20 06/10/21 Unknown History bupropion HCl 200 mg tablet,12 hr 200 mg PO BID tab 07/13/20 06/10/21 06/21/21 History sustained-release pramipexole 0.5 mg tablet 0.5 mg PO BEDTIME 06/02/21 06/10/21 Unknown History Physical Exam Vital Signs and Narrative: Vital Signs: Last Vital Signs Temp 98.0 F 06/21/21 12:33 Pulse 68 06/21/21 12:33 Resp 18 06/21/21 12:33 BP 113/69 06/21/21 12:33 Pulse Ox 96 06/21/21 12:33 BMI result Body Mass Index 31.3 General: no acute distress HEENT: atraumatic Neck: normal to visual inspection CVS: S1, S2, RRR Resp: CTA bilateral Chest: non tender GI: soft, non tender, non distended : no CVA tenderness Skin: no rashes Extremities: no edema Neuro: Oriented X3, grossly intact Psych: cooperative Results Labs Labs: Laboratory Results - last 24 hr 06/21/21 06:10 COVID-19 (BA) Negative COVID-19 Clin Com See Note Imaging Radiologist's Impressions: Impressions Knee X-Ray 06/21/21 10:05 IMPRESSION: Satisfactory appearance of right knee replacement. Assessment and Plan (1) Multiple sclerosis: Status: Acute Plan 66F admitted for right knee arthroplasty s/p right knee arthroplasty management per ortho bipolar lexapro, ativan, buspirone, bupropion MS gabapentin, soma copd stable, bronchodilators as needed hld statin
[2021-06-21] MEDS: carisoprodoL 350 MG TABLET PO ×2 (13:32→20:51)
[2021-06-21] MEDS: ceFAZolin Sodium/Dextrose,Iso 2 GM/50 ML PIGGYBACK IV (13:32)
[2021-06-21] MEDS: busPIRone HCl 10 MG TABLET 20 MG PO ×2 (13:33→20:52)
[2021-06-21] MEDS: Gabapentin 600 MG TABLET PO ×2 (13:33→20:50)
[2021-06-21] MEDS: HYDROmorphone HCl 0.5 MG/0.5 ML SYRINGE 0.25 MG IVPUSH (13:43)
[2021-06-21] MEDS: 0.9 % Sodium Chloride Flush 3 ML SYRINGE IVFLUSH ×2 (15:21→23:08)
[2021-06-21] MEDS: Acetaminophen 325 MG TABLET 650 MG PO ×2 (15:33→23:08)
--- NOTE | 2021-06-21 16:00 | MHC.CM.PN ---
IMM 06/21/21, EMR REVIEWED, PT ADMITTED S/P R TKA, CM MET W/PT WHO IS A&OX4, REPORTS SHE LIVES W/S.O. ALANA, INDEPENDENT W/ALL CARE, NO DME OTHER THAN [employer] FOR R TKA, NO HOME SERVICES, PT REPORTS HER S.O. ALANA IS RETIRED AND WILL BE HOME TO ASSIST PT, PT VERIFIES PCP IS NOHEMI CLIFFORD, PT REPORTS SHE USED TO HAVE A HCP HOEVER ONLY COPY WAS AT OLD PCP'S OFFICE AND HE , PT WOULD LIKE TO COMPLETE A HCP PRIOR TO D/C, THIS CM WILL FOLLOW-UP WITH PT TOMORROW SHE HAS BEEN UNDER ANESTHESIA. D/C PLAN: HOME W/[facility] FOR HOME PT, S.O. FOR TRANSPORT
[2021-06-21] MEDS: HYDROmorphone HCl 0.5 MG/0.5 ML SYRINGE IVPUSH (20:46)
[2021-06-21] MEDS: hydrOXYzine HCL 50 MG TABLET PO (20:50)
[2021-06-21] MEDS: Mirtazapine 15 MG TABLET 45 MG PO (20:50)
[2021-06-21] MEDS: Celecoxib 200 MG CAPSULE PO (20:51)
[2021-06-21] MEDS: Pramipexole Di-HCL 0.25 MG TABLET 0.5 MG PO (20:51)
[2021-06-21] MEDS: Docusate Sodium 100 MG CAPSULE PO (20:51)
[2021-06-21] MEDS: oxyCODONE HCl ER 10 MG TAB.ER.12H PO (20:52)
[2021-06-21] MEDS: LORazepam 1 MG TABLET 2 MG PO (23:08)
[2021-06-22] VITALS (8 sets, daily range): BP systolic 98–131; BP diastolic 56–70; PULSE 82–108; RESP 16–20; TEMP 36.6–37.5; O2SAT 90–98
[2021-06-22] MEDS: HYDROmorphone HCl 0.5 MG/0.5 ML SYRINGE 0.25 MG IVPUSH ×2 (00:44→08:26)
[2021-06-22] MEDS: oxyCODONE HCl Immed Release 5 MG TABLET PO ×3 (04:28→18:04)
[2021-06-22 05:58] LABS: MANUAL DIFF FLAG NO
[2021-06-22 06:03] LABS: Basophils Percent Auto 0.3 % (0-2); Eosinophils Percent Auto 0.5 % (0-4); Hematocrit 29.7 % (37.0-47.0); Hemoglobin 9.5 g/dl (12.0-16.0); Imm Gran Abs Auto 0.03 X10*3/uL (0.00-0.03); Imm Gran Pct Auto 0.4 % (0.0-0.4); Lymphocytes Absolute Auto 1.7 X10*3/uL (1.2-4.9); Mean Corpuscular Hemoglobin 28.9 pg (27.0-33.0); Mean Corpuscular Volume 90.3 fL (80.0-98.0); Mean Platelet Volume 10.8 fL (9.4-12.3); Monocytes Absolute Auto 0.8 X10*3/uL (0.1-1.2); Neutrophils Absolute Auto 5.2 x10*3/uL (2.0-8.3); Neutrophils Percent Auto 66.8 % (45-73); Platelet Count 171 X10*3/uL (160-400); Red Blood Count 3.29 X10*6/uL (4.20-5.50); Red Cell Distribution Width 13.2 % (11.0-16.0); White Blood Count 7.7 X10*3/uL (4.8-10.8)
--- NOTE | 2021-06-22 06:27 | PC.NURSE ---
pt got up to commode at 0500 and voided a very small amount, bladder scanned her at 0500 for 183 ml. Bladder scanned pt again at 0630 for 206 ml.
[2021-06-22 06:28] LABS: Anion Gap 11 (12-20); Blood Urea Nitrogen 22 mg/dL (9-16); Carbon Dioxide 26 mmol/L (22-29); Chloride 108 mmol/L (96-108); Creatinine Clr Calc Pharmacy 79.1; Estimated Glomerular Filt Rate > 60; Glucose Fasting 116 mg/dL (60-99); Potassium 3.2 mmol/L (3.3-5.1); Sodium 142 mmol/L (135-145)
--- NOTE | 2021-06-22 06:47 | HO.POSTANES ---
Post Anesthesia Evaluation Post Anesthesia Evaluation Vital Signs: Vital Signs Temp Pulse Resp BP Pulse Ox 06/22/21 04:00 97.9 F 82 20 98/70 92 06/21/21 23:38 99.8 F 85 18 120/69 91 L 06/21/21 19:18 98.4 F 77 18 127/72 94 Anesthesia: Spinal and Nerve Block Mental Status: Awake Pain Control: Satisfactory Nausea/Vomiting: None Hydration: Adequate Anesthesia-Related Issues: No Anes. Related Issues
--- NOTE | 2021-06-22 07:56 | P.PNOP_ITS ---
Subjective Subjective Date of Service: 06/22/21 Interval history: POD1 s/p RTKA patient is resting comfortably in bed. No overnight events. Pain is managed. Physical Exam Vital Signs: Vital Signs: Last Vital Signs Temp 98.2 F 06/22/21 07:49 Pulse 85 06/22/21 07:49 Resp 18 06/22/21 07:49 BP 119/61 06/22/21 07:49 Pulse Ox 90 L 06/22/21 07:49 BMI result Body Mass Index 31.3 Const: General: cooperative, healthy appearing and no acute distress Resp: Effort & Inspection: normal respiratory effort and able to speak in complete sentences Cardio: Rate: regular rate Peripheral pulses: Peripheral pulses 2+ throughout GI: Palpation (GI): Soft to palpation Skin: Lesions: no lesions Rashes: no rashes Extrem: Other: Right hip dressing is clean., dry, and intact. NVI. Procedures Date of Service Date of Service: 06/22/21 Progress Note: A&P Assessment and plan (1) Status post total knee replacement, right: Status: Acute Plan Continue pain mgmnt Begin ASA for dvt ppx begin PT for RTKA Dispo planning-Pending PT eval, pain mgmnt Fall Risk Details Current Medications: Current Medications Acetaminophen (Acetaminophen 325 Mg Tablet) 650 mg PO Q6H PRN PRN Reason: Pain, Mild (Pain Scale 1-3) Last Admin: 06/21/21 23:08 Dose: 650 mg Documented by: Aripiprazole (Aripiprazole 30 Mg Tablet) 30 mg PO DAILY [facility] Aspirin (Aspirin 325 Mg Tablet) 325 mg PO BID [facility] Atorvastatin Calcium (Atorvastatin Calcium 40 Mg Tablet) 40 mg PO DAILY [facility] Bupropion HCl (Bupropion Hcl Xl 150 Mg Tab.Er.24h) 450 mg PO DAILY [facility] Buspirone HCl (Buspirone Hcl 10 Mg Tablet) 20 mg PO TID [facility] Last Admin: 06/21/21 20:52 Dose: 20 mg Documented by: Carisoprodol (Carisoprodol 350 Mg Tablet) 350 mg PO TID [facility] Last Admin: 06/21/21 20:51 Dose: 350 mg Documented by: Celecoxib (Celecoxib 200 Mg Capsule) 200 mg PO BID [facility] Last Admin: 06/21/21 20:51 Dose: 200 mg Documented by: Docusate Sodium (Docusate Sodium 100 Mg Capsule) 100 mg PO BID [facility] Last Admin: 06/21/21 20:51 Dose: 100 mg Documented by: Escitalopram Oxalate (Escitalopram Oxalate 20 Mg Tablet) 20 mg PO DAILY [facility] Gabapentin (Gabapentin 600 Mg Tablet) 600 mg PO TID [facility] Last Admin: 06/21/21 20:50 Dose: 600 mg Documented by: Hydromorphone HCl (Hydromorphone Hcl 0.5 Mg/0.5 Ml Syringe) 0.5 mg IVPUSH Q5M PRN; Protocol PRN Reason: Pain, Severe (Pain Scale 7-10) Last Admin: 06/21/21 20:46 Dose: 0.5 mg Documented by: Hydromorphone HCl (Hydromorphone Hcl 0.5 Mg/0.5 Ml Syringe) 0.25 mg IVPUSH Q4H PRN; Protocol PRN Reason: Pain, Severe (Pain Scale 7-10) Last Admin: 06/22/21 00:44 Dose: 0.25 mg Documented by: Hydroxyzine HCl (Hydroxyzine Hcl 50 Mg Tablet) 50 mg PO BID [facility] Last Admin: 06/21/21 20:50 Dose: 50 mg Documented by: Dextrose/Sodium Chloride (D51/2ns) 1,000 mls @ 80 mls/hr IVCONT .[id number] [facility] Last Admin: 06/21/21 22:54 Dose: 80 mls/hr Documented by: Lorazepam (Lorazepam 1 Mg Tablet) 2 mg PO BID PRN PRN Reason: Anxiety Last Admin: 06/21/21 23:08 Dose: 2 mg Documented by: Mirtazapine (Mirtazapine 15 Mg Tablet) 45 mg PO BEDTIME [facility] Last Admin: 06/21/21 20:50 Dose: 45 mg Documented by: Montelukast Sodium (Montelukast Sodium 10 Mg Tablet) 10 mg PO DAILY [facility] Ondansetron HCl (Ondansetron Hcl 4 Mg/2 Ml Vial) 4 mg IVPUSH ONCE PRN PRN Reason: Nausea and Vomiting Ondansetron HCl (Ondansetron Hcl 4 Mg/2 Ml Vial) 4 mg IVPUSH Q8H PRN PRN Reason: Nausea and Vomiting Oxycodone HCl (Oxycodone Hcl Immed Release 5 Mg Tablet) 5 mg PO Q4H PRN PRN Reason: Pain, Moderate (Pain Scale 4-6 Last Admin: 06/22/21 04:28 Dose: 5 mg Documented by: Oxycodone HCl (Oxycodone Hcl Er 10 Mg Tab.Er.12h) 10 mg PO BID [facility] Last Admin: 06/21/21 20:52 Dose: 10 mg Documented by: Pramipexole Dihydrochloride (Pramipexole Di-Hcl 0.25 Mg Tablet) 0.5 mg PO BEDTIME [facility] Last Admin: 06/21/21 20:51 Dose: 0.5 mg Documented by: Sodium Chloride (0.9 % Sodium Chloride Flush 3 Ml Syringe) 3 ml IVFLUSH QSHIFT [facility] Last Admin: 06/21/21 23:08 Dose: 3 ml Documented by: Time Spent With Patient Time: Total time spent is greater than 50% in coordination of care (as documented) at patient's floor/unit and/or counseling patient: Time with patient: less than 15 minutes Quality Stroke Does the patient have a stroke diagnosis?: No VTE Prior VTE?: No VTE Risk Level:: Surgical - very high VTE Device Contraindication: N/A - Device Ordered VTE Drug Contraindication: N/A - Med Ordered
[2021-06-22] MEDS: oxyCODONE HCl ER 10 MG TAB.ER.12H PO ×2 (08:29→20:34)
[2021-06-22] MEDS: Atorvastatin Calcium 40 MG TABLET PO (08:29)
[2021-06-22] MEDS: Montelukast Sodium 10 MG TABLET PO (08:29)
[2021-06-22] MEDS: Aspirin 325 MG TABLET PO ×2 (08:29→20:32)
[2021-06-22] MEDS: Docusate Sodium 100 MG CAPSULE PO ×2 (08:29→20:32)
[2021-06-22] MEDS: Celecoxib 200 MG CAPSULE PO ×2 (08:30→20:33)
[2021-06-22] MEDS: 0.9 % Sodium Chloride Flush 3 ML SYRINGE IVFLUSH (08:30)
[2021-06-22] MEDS: carisoprodoL 350 MG TABLET PO ×3 (08:30→20:33)
[2021-06-22] MEDS: Gabapentin 600 MG TABLET PO ×3 (08:30→20:33)
[2021-06-22] MEDS: buPROPion HCl XL 150 MG TAB.ER.24H 450 MG PO (08:30)
[2021-06-22] MEDS: hydrOXYzine HCL 50 MG TABLET PO ×2 (08:30→20:32)
[2021-06-22] MEDS: busPIRone HCl 10 MG TABLET 20 MG PO ×3 (08:30→20:33)
[2021-06-22] MEDS: ARIPiprazole 30 MG TABLET PO (08:30)
[2021-06-22] MEDS: Escitalopram Oxalate 20 MG TABLET PO (08:30)
--- NOTE | 2021-06-22 11:20 | PC.NURSE ---
Bladder scanned for 517cc for inability to void. Straight cathed for 600cc at 1030. Patient tolerated well. DTV @ 0808.
--- NOTE | 2021-06-22 11:21 | P.PNIM_ITS ---
Subjective Subjective Date of Service: 06/22/21 Interval History: the patient was seen and evaluated this morning Laying in bed, feels comfortable pain fairly controlled No reported other overnight events. Systemic review: No fever, chills or weakness No chest pain, palpitation No shortness of breath or coughing No abdominal pain, nausea or vomiting No urinary symptoms pain at knee, no bleeding No any rash or wounds Physical Exam Vital Signs: Vital Signs: Last Vital Signs Temp 98.2 F 06/22/21 07:49 Pulse 85 06/22/21 08:02 Resp 18 06/22/21 07:49 BP 119/61 06/22/21 08:02 Pulse Ox 90 L 06/22/21 08:02 BMI result Body Mass Index 31.3 Const: Other: Constitutional : Alert, oriented, not in distress Neck : Normal inspection, Supple Cardiovascular : RRR, S1 S2, no lower extremity edema Respiratory : Good bilateral air entry, no crackles, wheezes or rhonchi Gastrointestinal: soft, lax, Normal bowel sounds, Non tender Skin : Warm, Dry Ext: Knee in dressing, no bleeding or erythema Neurological : Alert & oriented x3, No focal deficit Objective Data Active Medications Acetaminophen (Acetaminophen 325 Mg Tablet) 650 mg PO Q6H PRN PRN Reason: Pain, Mild (Pain Scale 1-3) Last Admin: 06/21/21 23:08 Dose: 650 mg Documented by: SHAAN Aripiprazole (Aripiprazole 30 Mg Tablet) 30 mg PO DAILY [facility] Last Admin: 06/22/21 08:30 Dose: 30 mg Documented by: LOLITA Aspirin (Aspirin 325 Mg Tablet) 325 mg PO BID [facility] Last Admin: 06/22/21 09:50 Dose: Not Given Documented by: LOLITA Non-Admin Reason: first dose just given Atorvastatin Calcium (Atorvastatin Calcium 40 Mg Tablet) 40 mg PO DAILY [facility] Last Admin: 06/22/21 08:29 Dose: 40 mg Documented by: LOLITA Bupropion HCl (Bupropion Hcl Xl 150 Mg Tab.Er.24h) 450 mg PO DAILY [facility] Last Admin: 06/22/21 08:30 Dose: 450 mg Documented by: LOLITA Buspirone HCl (Buspirone Hcl 10 Mg Tablet) 20 mg PO TID [facility] Last Admin: 06/22/21 08:30 Dose: 20 mg Documented by: LOLITA Carisoprodol (Carisoprodol 350 Mg Tablet) 350 mg PO TID [facility] Last Admin: 06/22/21 08:30 Dose: 350 mg Documented by: LOLITA Celecoxib (Celecoxib 200 Mg Capsule) 200 mg PO BID [facility] Last Admin: 06/22/21 08:30 Dose: 200 mg Documented by: LOLITA Docusate Sodium (Docusate Sodium 100 Mg Capsule) 100 mg PO BID [facility] Last Admin: 06/22/21 08:29 Dose: 100 mg Documented by: LOLITA Escitalopram Oxalate (Escitalopram Oxalate 20 Mg Tablet) 20 mg PO DAILY [facility] Last Admin: 06/22/21 08:30 Dose: 20 mg Documented by: LOLITA Gabapentin (Gabapentin 600 Mg Tablet) 600 mg PO TID [facility] Last Admin: 06/22/21 08:30 Dose: 600 mg Documented by: LOLITA Hydromorphone HCl (Hydromorphone Hcl 0.5 Mg/0.5 Ml Syringe) 0.5 mg IVPUSH Q5M PRN; Protocol PRN Reason: Pain, Severe (Pain Scale 7-10) Last Admin: 06/21/21 20:46 Dose: 0.5 mg Documented by: MARIANNE Hydromorphone HCl (Hydromorphone Hcl 0.5 Mg/0.5 Ml Syringe) 0.25 mg IVPUSH Q4H PRN; Protocol PRN Reason: Pain, Severe (Pain Scale 7-10) Last Admin: 06/22/21 08:26 Dose: 0.25 mg Documented by: LOLITA Hydroxyzine HCl (Hydroxyzine Hcl 50 Mg Tablet) 50 mg PO BID [facility] Last Admin: 06/22/21 08:30 Dose: 50 mg Documented by: LOLITA Dextrose/Sodium Chloride (D51/2ns) 1,000 mls @ 80 mls/hr IVCONT .[id number] [facility] Last Admin: 06/21/21 22:54 Dose: 80 mls/hr Documented by: MARIANNE Lorazepam (Lorazepam 1 Mg Tablet) 2 mg PO BID PRN PRN Reason: Anxiety Last Admin: 06/21/21 23:08 Dose: 2 mg Documented by: SHAAN Mirtazapine (Mirtazapine 15 Mg Tablet) 45 mg PO BEDTIME [facility] Last Admin: 06/21/21 20:50 Dose: 45 mg Documented by: MARIANNE Montelukast Sodium (Montelukast Sodium 10 Mg Tablet) 10 mg PO DAILY [facility] Last Admin: 06/22/21 08:29 Dose: 10 mg Documented by: LOLITA Ondansetron HCl (Ondansetron Hcl 4 Mg/2 Ml Vial) 4 mg IVPUSH ONCE PRN PRN Reason: Nausea and Vomiting Ondansetron HCl (Ondansetron Hcl 4 Mg/2 Ml Vial) 4 mg IVPUSH Q8H PRN PRN Reason: Nausea and Vomiting Oxycodone HCl (Oxycodone Hcl Immed Release 5 Mg Tablet) 5 mg PO Q4H PRN PRN Reason: Pain, Moderate (Pain Scale 4-6 Last Admin: 06/22/21 04:28 Dose: 5 mg Documented by: SHAAN Oxycodone HCl (Oxycodone Hcl Er 10 Mg Tab.Er.12h) 10 mg PO BID [facility] Last Admin: 06/22/21 08:29 Dose: 10 mg Documented by: LOLITA Pramipexole Dihydrochloride (Pramipexole Di-Hcl 0.25 Mg Tablet) 0.5 mg PO BEDTIME [facility] Last Admin: 06/21/21 20:51 Dose: 0.5 mg Documented by: MARIANNE Sodium Chloride (0.9 % Sodium Chloride Flush 3 Ml Syringe) 3 ml IVFLUSH QSHIFT [facility] Last Admin: 06/22/21 08:30 Dose: 3 ml Documented by: LOLITA Labs CBC & Chem 7: 06/22/21 05:32 06/22/21 05:32 Labs: Laboratory Results - last 24 hr 06/22/21 06/22/21 05:32 05:32 MCV 90.3 MCH 28.9 MCHC 32.0 RDW 13.2 Plt Count 171 MPV 10.8 Immature Gran % (Auto) 0.4 Neut % (Auto) 66.8 Lymph % (Auto) 22.0 [place] % (Auto) 10.0 Eos % (Auto) 0.5 Baso % (Auto) 0.3 Lymph # (Auto) 1.7 [place] # (Auto) 0.8 Eos # (Auto) 0.0 Baso # (Auto) 0.0 Abs Immat Gran (auto) 0.03 Absolute Neuts (auto) 5.2 Absolute Nucleated RBC 0.000 Nucleated RBC % (auto) 0.0 Anion Gap 11 L Estim Creat Clear Calc 79.1 Estimated GFR > 60 Fasting Glucose 116 H Calcium 8.0 L D Assessment and Plan (1) Primary osteoarthritis of right knee: Status: Acute Plan 66F admitted for right knee arthroplasty s/p right knee arthroplasty management per ortho ASA for DVT ppx bipolar lexapro, ativan, buspirone, bupropion MS gabapentin, soma copd stable, bronchodilators as needed hld statin Quality Stroke Does the patient have a stroke diagnosis?: No VTE Prior VTE?: No VTE Risk Level:: Surgical - very high VTE Device Contraindication: N/A - Device Ordered VTE Drug Contraindication: N/A - Med Ordered
[2021-06-22] MEDS: Dextrose 5 % and 0.45 % NaCl 1,000 ML 80 ML IVCONT (13:25)
--- NOTE | 2021-06-22 13:36 | MHC.CM.PN ---
PT RECEIVED Proginet VACCINE X3.
[2021-06-22] MEDS: Pramipexole Di-HCL 0.25 MG TABLET 0.5 MG PO (20:34)
[2021-06-22] MEDS: Acetaminophen 325 MG TABLET 650 MG PO (20:34)
[2021-06-22] MEDS: Mirtazapine 15 MG TABLET 45 MG PO (20:42)
--- NOTE | 2021-06-22 23:53 | PC.NURSE ---
Patient seen by Dr. Mcmillan this pm,#16 Martin was inserted drained and capped,to be drained q 4-6 hrs,Dr. Mcmillan will put orders in
[2021-06-23] MEDS: 0.9 % Sodium Chloride Flush 3 ML SYRINGE IVFLUSH ×2 (01:14→09:27)
[2021-06-23] MEDS: Dextrose 5 % and 0.45 % NaCl 1,000 ML 80 ML IVCONT (03:20)
[2021-06-23 03:42] VITALS: BP 108/57; PULSE 96; RESP 16; TEMP 36.7; O2SAT 92
[2021-06-23] MEDS: oxyCODONE HCl Immed Release 5 MG TABLET PO (04:13)
[2021-06-23 06:05] LABS: MANUAL DIFF FLAG NO
[2021-06-23 06:16] LABS: Basophils Absolute Auto 0.1 X10*3/uL (0.0-0.2); Basophils Percent Auto 0.5 % (0-2); Eosinophils Absolute Auto 0.3 X10*3/uL (0.0-0.4); Eosinophils Percent Auto 3.3 % (0-4); Hematocrit 33.8 % (37.0-47.0); Hemoglobin 10.5 g/dl (12.0-16.0); Imm Gran Abs Auto 0.03 X10*3/uL (0.00-0.03); Imm Gran Pct Auto 0.3 % (0.0-0.4); Lymphocytes Absolute Auto 1.4 X10*3/uL (1.2-4.9); Lymphocytes Percent Auto 14.8 % (20-40); Mean Corpuscular HGB Conc 31.1 g/dl (31.0-35.0); Mean Corpuscular Hemoglobin 28.6 pg (27.0-33.0); Mean Corpuscular Volume 92.1 fL (80.0-98.0); Mean Platelet Volume 10.4 fL (9.4-12.3); Monocytes Absolute Auto 0.9 X10*3/uL (0.1-1.2); Monocytes Percent Auto 10.1 % (2-11); Neutrophils Absolute Auto 6.5 x10*3/uL (2.0-8.3); Platelet Count 185 X10*3/uL (160-400); Red Blood Count 3.67 X10*6/uL (4.20-5.50); Red Cell Distribution Width 13.5 % (11.0-16.0); White Blood Count 9.1 X10*3/uL (4.8-10.8)
[2021-06-23 06:40] LABS: Anion Gap 11 (12-20); Blood Urea Nitrogen 13 mg/dL (9-16); Calcium 8.3 mg/dL (8.4-10.2); Carbon Dioxide 28 mmol/L (22-29); Chloride 105 mmol/L (96-108); Creatinine Clr Calc Pharmacy 80.2; Estimated Glomerular Filt Rate > 60; Glucose Fasting 127 mg/dL (60-99); Potassium 3.2 mmol/L (3.3-5.1); Sodium 141 mmol/L (135-145)
--- NOTE | 2021-06-23 07:32 | PC.NURSE ---
SOLANO CATHETER CAPPED THIS 11-7 SHIFT ORDERED AND EMPTIED EVERY 4 HOURS ORDERED; 0100 FOR 250ML YELLOW URINE AND 0500 FOR 250ML YELLOW URINE, SURI WELL AND DRAINED FREELY.
[2021-06-23 07:52] VITALS: BP 112/67; PULSE 80; RESP 20; TEMP 36.3; O2SAT 97
--- NOTE | 2021-06-23 09:10 | P.DS_ITS ---
DS: Providers Provider Date of Service: 06/23/21 Primary care physician: Sreedhar Patricia MD Consults: 06/21/21 12:17 Consult to Hospitalist Routine Consulting Provider: Hospitalist Reason For Exam: COPD, post op medical management 06/22/21 15:49 Consult to Urology Routine Consulting Provider: Anders Mcmillan Reason for consultation: urinary retention DS: Diagnosis Discharge Diagnosis (1) Primary osteoarthritis of right knee: Status: Acute DS: Summary Hospital Course Hospital Course: The patient underwent a successful right total knee arthroplasty, they were transferred to PACU and then to the floor to recover. During their stay, their vitals were stable, afebrile at 98.1. Labs were unremarkable, H/H 10.5/33.8. POD 1 they were started on Aspirin 325mg po bid for DVT ppx, they also received Physical Therapy services twice a day. Prior to discharge, their dressing was changed, incision clean dry and intact, new Aquacel dressing applied and the plan was to be discharged home with VNA services. Time Spent with Patient Time attestation: Total time spent providing and/or coordinating discharge services: Discharge coordination time: Less than 30 minutes Quality: Stroke Does the patient have a stroke diagnosis?: No Physical Exam Vital Signs: Vital Signs: Last Vital Signs Temp 97.3 F 06/23/21 07:52 Pulse 80 06/23/21 07:52 Resp 20 06/23/21 07:52 BP 112/67 06/23/21 07:52 Pulse Ox 97 06/23/21 07:52 BMI result Body Mass Index 31.3 Const: General: cooperative, healthy appearing and no acute distress Resp: Effort & Inspection: normal respiratory effort and able to speak in complete sentences Cardio: Rate: regular rate Peripheral pulses: Peripheral pulses 2+ throughout GI: Palpation (GI): Soft to palpation Skin: Lesions: no lesions Rashes: no rashes Extrem: Other: Right knee Aquacel dressing intact. No erythema. [place] intact. NVI DS: Data Data Completed and Pending Pending studies at discharge: Pending at discharge 06/21/21 09:00 Surgical [PTH] Routine Labs on day of discharge: Laboratory Results - last 24 hr 06/23/21 06/23/21 05:56 05:56 WBC 9.1 RBC 3.67 L Hgb 10.5 L Hct 33.8 L MCV 92.1 MCH 28.6 MCHC 31.1 RDW 13.5 Plt Count 185 MPV 10.4 Immature Gran % (Auto) 0.3 Neut % (Auto) 71.0 Lymph % (Auto) 14.8 L [place] % (Auto) 10.1 Eos % (Auto) 3.3 Baso % (Auto) 0.5 Lymph # (Auto) 1.4 [place] # (Auto) 0.9 Eos # (Auto) 0.3 Baso # (Auto) 0.1 Abs Immat Gran (auto) 0.03 Absolute Neuts (auto) 6.5 Absolute Nucleated RBC 0.000 Nucleated RBC % (auto) 0.0 Sodium 141 Potassium 3.2 L Chloride 105 Carbon Dioxide 28 Anion Gap 11 L BUN 13 Creatinine 0.71 Estim Creat Clear Calc 80.2 Estimated GFR > 60 Fasting Glucose 127 H Calcium 8.3 L Discharge Plan Discharge Patient Disposition: Home, Self-Care Referrals: Massimo Pratt PA-C [Physician [facility]] - 2 Weeks (07/07/21 11:30 [facility] Massimo Pratt PA-C) Discharge Medications: New acetaminophen 325 mg Tablet 650 mg PO Q6H PRN (Reason: Pain, Mild (Pain Scale 1-3)) 30 Days Qty: 240 0RF aspirin 325 mg Tablet 325 mg PO BID 42 Days Qty: 84 0RF docusate sodium 100 mg Capsule 100 mg PO BID 14 Days Qty: 28 0RF oxycodone 5 mg Tablet 5 mg PO Q4H PRN (Reason: Pain, Moderate (Pain Scale 4-6) 7 Days Qty: 42 0RF Continued montelukast 10 mg tablet 10 mg PO DAILY Qty: 30 1RF rosuvastatin 10 mg tablet 10 mg PO BEDTIME Qty: 90 0RF (DME) [facility] See Rx Instructions .MEDSUPPLY Qty: 1 0RF Rx Instructions: Folding Front wheeled walker lorazepam 2 mg tablet 2 mg PO BID PRN (Reason: Anxiety) 0RF buspirone 10 mg tablet 20 mg PO TID 0RF hydroxyzine pamoate 50 mg capsule 50 mg PO BID 0RF gabapentin 600 mg tablet 600 mg PO TID 0RF mirtazapine 45 mg tablet 45 mg PO BEDTIME 0RF carisoprodol 350 mg tablet 350 mg PO TID 0RF escitalopram oxalate [Lexapro] 20 mg tablet 20 mg PO DAILY 0RF aripiprazole [Abilify] 30 mg tablet 30 mg PO DAILY 0RF bupropion HCl 200 mg tablet sustained-release 12 hr 200 mg PO BID 0RF pramipexole 0.5 mg tablet 0.5 mg PO BEDTIME 0RF Discontinued diclofenac sodium 50 mg tablet,delayed release (DR/EC) 50 mg PO BID Qty: 60 1RF Discharge Orders: Discharge Order (Routine); Ordered 06/23/21 Ordered By: Anju Miranda Activity Restrictions/Additional Instructions: * Physical Therapy for Total knee arthroplasty: gait training, ROM 0-12, quad strength * Limit stair climbing * No showering, no tub bath-keep dressing clean, dry and intact * No driving x6 weeks * Continue Aspirin twice a day x 6 weeks * Follow up with [facility] in 2 weeks
[2021-06-23 09:22] VITALS: BP 112/67; PULSE 80; O2SAT 97
--- NOTE | 2021-06-23 09:41 | P.PNIM_ITS ---
Subjective Subjective Date of Service: 06/23/21 Interval History: the patient was seen and evaluated this morning Laying in bed, feels comfortable Developed urinary retention overnight requiring placement of Martin catheter pain fairly controlled No reported other overnight events. Systemic review: No fever, chills or weakness No chest pain, palpitation No shortness of breath or coughing No abdominal pain, nausea or vomiting Urinary retention requiring Martin catheter placement pain at knee, no bleeding No any rash or wounds Physical Exam Vital Signs: Vital Signs: Last Vital Signs Temp 97.3 F 06/23/21 07:52 Pulse 80 06/23/21 09:22 Resp 20 06/23/21 07:52 BP 112/67 06/23/21 09:22 Pulse Ox 97 06/23/21 09:22 BMI result Body Mass Index 31.3 Const: Other: Constitutional : Alert, oriented, not in distress Neck : Normal inspection, Supple Cardiovascular : RRR, S1 S2, no lower extremity edema Respiratory : Good bilateral air entry, no crackles, wheezes or rhonchi Gastrointestinal: soft, lax, Normal bowel sounds, Non tender Skin : Warm, Dry Urology: Martin catheter in place Ext: Knee in dressing, no bleeding or erythema Neurological : Alert & oriented x3, No focal deficit Objective Data Active Medications Acetaminophen (Acetaminophen 325 Mg Tablet) 650 mg PO Q6H PRN PRN Reason: Pain, Mild (Pain Scale 1-3) Last Admin: 06/22/21 20:34 Dose: 650 mg Documented by: MARIANNE Aripiprazole (Aripiprazole 30 Mg Tablet) 30 mg PO DAILY ON LICENSE OF [facility] Last Admin: 06/23/21 09:27 Dose: Not Given Documented by: PATRICK Non-Admin Reason: Patient Refused Aspirin (Aspirin 325 Mg Tablet) 325 mg PO BID ON LICENSE OF [facility] Last Admin: 06/23/21 09:27 Dose: Not Given Documented by: PATRICK Non-Admin Reason: Patient Refused Atorvastatin Calcium (Atorvastatin Calcium 40 Mg Tablet) 40 mg PO DAILY ON LICENSE OF [facility] Last Admin: 06/23/21 09:27 Dose: Not Given Documented by: PATRICK Non-Admin Reason: Patient Refused Bupropion HCl (Bupropion Hcl Xl 150 Mg Tab.Er.24h) 450 mg PO DAILY ON LICENSE OF [facility] Last Admin: 06/23/21 09:27 Dose: Not Given Documented by: PATRICK Non-Admin Reason: Patient Refused Buspirone HCl (Buspirone Hcl 10 Mg Tablet) 20 mg PO TID ON LICENSE OF [facility] Last Admin: 06/23/21 09:27 Dose: Not Given Documented by: PATRICK Non-Admin Reason: Patient Refused Carisoprodol (Carisoprodol 350 Mg Tablet) 350 mg PO TID ON LICENSE OF [facility] Last Admin: 06/23/21 09:27 Dose: Not Given Documented by: PATRICK Non-Admin Reason: Patient Refused Celecoxib (Celecoxib 200 Mg Capsule) 200 mg PO BID ON LICENSE OF [facility] Last Admin: 06/23/21 09:28 Dose: Not Given Documented by: PATRICK Non-Admin Reason: Patient Refused Docusate Sodium (Docusate Sodium 100 Mg Capsule) 100 mg PO BID ON LICENSE OF [facility] Last Admin: 06/23/21 09:28 Dose: Not Given Documented by: PATRICK Non-Admin Reason: Patient Refused Escitalopram Oxalate (Escitalopram Oxalate 20 Mg Tablet) 20 mg PO DAILY ON LICENSE OF [facility] Last Admin: 06/23/21 09:29 Dose: Not Given Documented by: PATRICK Non-Admin Reason: Patient Refused Gabapentin (Gabapentin 600 Mg Tablet) 600 mg PO TID ON LICENSE OF [facility] Last Admin: 06/23/21 09:29 Dose: Not Given Documented by: PATRICK Non-Admin Reason: Patient Refused Hydromorphone HCl (Hydromorphone Hcl 0.5 Mg/0.5 Ml Syringe) 0.5 mg IVPUSH Q5M PRN; Protocol PRN Reason: Pain, Severe (Pain Scale 7-10) Last Admin: 06/21/21 20:46 Dose: 0.5 mg Documented by: MAIRANNE Hydromorphone HCl (Hydromorphone Hcl 0.5 Mg/0.5 Ml Syringe) 0.25 mg IVPUSH Q4H PRN; Protocol PRN Reason: Pain, Severe (Pain Scale 7-10) Last Admin: 06/22/21 08:26 Dose: 0.25 mg Documented by: LOLITA Hydroxyzine HCl (Hydroxyzine Hcl 50 Mg Tablet) 50 mg PO BID ON LICENSE OF [facility] Last Admin: 06/23/21 09:29 Dose: Not Given Documented by: PATRICK Non-Admin Reason: Patient Refused Dextrose/Sodium Chloride (D51/2ns) 1,000 mls @ 80 mls/hr IVCONT .[id number] ON LICENSE OF [facility] Last Admin: 06/23/21 03:20 Dose: 80 mls/hr Documented by: NURA Lorazepam (Lorazepam 1 Mg Tablet) 2 mg PO BID PRN PRN Reason: Anxiety Last Admin: 06/21/21 23:08 Dose: 2 mg Documented by: SHAAN Mirtazapine (Mirtazapine 15 Mg Tablet) 45 mg PO BEDTIME ON LICENSE OF [facility] Last Admin: 06/22/21 20:42 Dose: 45 mg Documented by: MARIANNE Montelukast Sodium (Montelukast Sodium 10 Mg Tablet) 10 mg PO DAILY ON LICENSE OF [facility] Last Admin: 06/23/21 09:29 Dose: Not Given Documented by: PATRICK Non-Admin Reason: Patient Refused Ondansetron HCl (Ondansetron Hcl 4 Mg/2 Ml Vial) 4 mg IVPUSH ONCE PRN PRN Reason: Nausea and Vomiting Ondansetron HCl (Ondansetron Hcl 4 Mg/2 Ml Vial) 4 mg IVPUSH Q8H PRN PRN Reason: Nausea and Vomiting Oxycodone HCl (Oxycodone Hcl Immed Release 5 Mg Tablet) 5 mg PO Q4H PRN PRN Reason: Pain, Moderate (Pain Scale 4-6 Last Admin: 06/23/21 04:13 Dose: 5 mg Documented by: NURA Oxycodone HCl (Oxycodone Hcl Er 10 Mg Tab.Er.12h) 10 mg PO BID ON LICENSE OF [facility] Last Admin: 06/23/21 09:29 Dose: Not Given Documented by: PATRICK Non-Admin Reason: Patient Refused Pramipexole Dihydrochloride (Pramipexole Di-Hcl 0.25 Mg Tablet) 0.5 mg PO BEDTIME ON LICENSE OF [facility] Last Admin: 06/22/21 20:34 Dose: 0.5 mg Documented by: MARIANNE Sodium Chloride (0.9 % Sodium Chloride Flush 3 Ml Syringe) 3 ml IVFLUSH QSHIFT ON LICENSE OF [facility] Last Admin: 06/23/21 09:27 Dose: 3 ml Documented by: PATRICK Labs CBC & Chem 7: 06/23/21 05:56 06/23/21 05:56 Labs: Laboratory Results - last 24 hr 06/23/21 06/23/21 05:56 05:56 MCV 92.1 MCH 28.6 MCHC 31.1 RDW 13.5 Plt Count 185 MPV 10.4 Immature Gran % (Auto) 0.3 Neut % (Auto) 71.0 Lymph % (Auto) 14.8 L [place] % (Auto) 10.1 Eos % (Auto) 3.3 Baso % (Auto) 0.5 Lymph # (Auto) 1.4 [place] # (Auto) 0.9 Eos # (Auto) 0.3 Baso # (Auto) 0.1 Abs Immat Gran (auto) 0.03 Absolute Neuts (auto) 6.5 Absolute Nucleated RBC 0.000 Nucleated RBC % (auto) 0.0 Anion Gap 11 L Estim Creat Clear Calc 80.2 Estimated GFR > 60 Fasting Glucose 127 H Calcium 8.3 L Assessment and Plan (1) Urinary retention: Status: Acute Plan 66F admitted for right knee arthroplasty Urinary retention Likely secondary of anesthesia Failed straight catheterization Martin catheter placed, to be discharged home with it and to follow-up in a few days to remove it s/p right knee arthroplasty management per ortho ASA for DVT ppx bipolar lexapro, ativan, buspirone, bupropion MS gabapentin, soma copd stable, bronchodilators as needed hld statin DVT prophylaxis per surgical team recommendations Quality Stroke Does the patient have a stroke diagnosis?: No VTE Prior VTE?: No VTE Risk Level:: Surgical - very high VTE Device Contraindication: N/A - Device Ordered VTE Drug Contraindication: N/A - Med Ordered
--- NOTE | 2021-06-23 11:42 | MHC.CM.PN ---
Addendum entered by Teodora Martínez RN 06/23/21 14:10: [facility] WILL ALSO COVER SN FOR CAPPED SOLANO W/DRAINING Q4HRS, PT TO FOLLOW-UP IN A FEW DAYS FOR REMOVAL. Original Note: PT DISCHARGING HOME W/[facility] FOR HOE PT, PT'S S.O. FOR TRANSPORT
[2021-06-23 11:56] VITALS: BP 114/63; PULSE 75; RESP 20; TEMP 36.8; O2SAT 96
--- NOTE | 2021-06-23 12:58 | P.F2F_ITS ---
Service Date Service Date: 06/23/21 Encounter Date of encounter: 06/23/21 Reasons for Services Signs and symptoms assessed: Pt. is considered homebound due to recent surgery. Unable to drive, poor balance, poor gait mechanics. Reason for shelter: other ([facility] cath ) Reason for physical therapy: home safety and mobility, therapeutic exercises, r estore joint function, gait/transfer training and ADL training Homebound: Leaving the home is medically contraindicated at this time without the asist of a device and/or another person due th the listed conditions above and below. Reason homebound: unsteady gait / fall risk, leg weakness, bedbound/chairbound, pain with ambulation and unable to drive Homebound supporting statement: Pt. is considered homebound due to recent surgery. Unable to drive, poor balance, poor gait mechanics. Certification: Based on the above findings, I certify that this patient is confined to the home and needs intermittent shelter care, physical therapy and/or speech therapy, or continues to need occupational therapy. The patient is under my care, and I have initiated the establishment of the plan of care. The patient will be followed by a physician who will periodically review the plan of care.
== END 2021-06-23 13:10 | disposition home or self-care (01) ==
LOC: HO.SSS 06:10 → HO.S3 11:49
PROVIDERS: Physician Assistant; PCP Internal Medicine; Visit Provider Orthopaedic Surgery
PROC: (CPT 27447; principal; 2021-06-21 07:30)
DX: M17.11 Unilateral primary osteoarthritis, right knee (principal); G35 Multiple sclerosis; R33.9 Retention of urine, unspecified; F31.9 Bipolar disorder, unspecified; J44.9 Chronic obstructive pulmonary disease, unspecified; Z79.899 Other long term (current) drug therapy; Z20.822 Contact with and (suspected) exposure to COVID-19
CPT/HCPCS: 27447; 51702; 36415; 73560; 80048; 85025; 86850; 86900; 86901; 87635; 87640; 87641; 88305; 88311; 94640; 97110; 97116; 97162; C1776; J0690; J1100; J1170; J1885; J2250; J2370

== ENCOUNTER → 2021-06-29 08:49 | Outpatient (BNVA) | payer MEDICARE, OTHER, SELFPAY | PROVIDERS: PCP Internal Medicine; Visit Provider Urology | DX: R33.9 Retention of urine, unspecified (principal) | CPT/HCPCS: 51700; 51798 ==

== ENCOUNTER 2021-07-07 08:12 | Outpatient (REF) | payer MEDICARE, OTHER, SELFPAY | END 2021-07-07 08:13 | disposition home or self-care (01) | LOC: HO.MDS 08:12 | PROVIDERS: Visit Provider Psychiatry & Neurology Neurology | DX: G35 Multiple sclerosis (principal) | CPT/HCPCS: 96365; 99212; J2930 ==

== ENCOUNTER 2021-08-04 07:51 | Outpatient (REF) | payer MEDICARE, OTHER, SELFPAY | END 2021-08-04 07:52 | disposition home or self-care (01) | LOC: HO.MDS 07:51 | PROVIDERS: Visit Provider Psychiatry & Neurology Neurology | DX: G35 Multiple sclerosis (principal) | CPT/HCPCS: 96365; J2930 ==

== ENCOUNTER 2021-08-05 07:15 | Outpatient (REF) | payer MEDICARE, OTHER, SELFPAY ==
--- NOTE | ~2021-08-05 | XR_ITS ---
EXAMINATION: XR BOTH KNEES AP STANDING XR RIGHT KNEE, 2 VIEWS CLINICAL INFORMATION: Right knee pain. COMPARISON: Most recent right knee radiographs dated 06/21/2021. TECHNIQUE: Standing AP view of both knees and lateral and sunrise views of the right knee. FINDINGS: Right Knee: Total right knee arthroplasty in expected anatomic alignment. No hardware fracture. No perihardware lucency to suggest loosening or infection. No abnormal soft tissue calcification. Atherosclerotic calcifications. Left Knee: Small medial and lateral compartment marginal osteophytes. No osseous erosion. No fracture or dislocation. No abnormal soft tissue calcification. XR/XR knee standing BI IMPRESSION: RIGHT KNEE: Total right knee arthroplasty without evidence of hardware complication. LEFT KNEE: Mild medial and lateral compartment osteoarthritis.
--- NOTE | ~2021-08-05 | XR_ITS ---
EXAMINATION: XR BOTH KNEES AP STANDING XR RIGHT KNEE, 2 VIEWS CLINICAL INFORMATION: Right knee pain. COMPARISON: Most recent right knee radiographs dated 06/21/2021. TECHNIQUE: Standing AP view of both knees and lateral and sunrise views of the right knee. FINDINGS: Right Knee: Total right knee arthroplasty in expected anatomic alignment. No hardware fracture. No perihardware lucency to suggest loosening or infection. No abnormal soft tissue calcification. Atherosclerotic calcifications. Left Knee: Small medial and lateral compartment marginal osteophytes. No osseous erosion. No fracture or dislocation. No abnormal soft tissue calcification. XR/XR knee RT 2V IMPRESSION: RIGHT KNEE: Total right knee arthroplasty without evidence of hardware complication. LEFT KNEE: Mild medial and lateral compartment osteoarthritis.
== END 2021-08-05 07:16 | disposition home or self-care (01) ==
LOC: HO.HOSX 07:15
PROVIDERS: Visit Provider Physician Assistant
DX: Z47.1 Aftercare following joint replacement surgery (principal); Z96.651 Presence of right artificial knee joint
CPT/HCPCS: 73560; 73565; 99212

== ENCOUNTER 2021-08-09 06:34 | Outpatient (REF) | payer MEDICARE, OTHER, SELFPAY ==
[2021-08-09 07:51] LABS: Alanine Aminotransferase 23 U/L (0-31); Albumin Level 4.4 g/dL (3.5-5.0); Alkaline Phosphatase 91 U/L (39-117); Anion Gap 12 (12-20); Aspartate Amino Transferase 20 U/L (5-31); Bilirubin Total 0.3 mg/dL (0.0-1.0); Blood Urea Nitrogen 28 mg/dL (9-16); Calcium 9.8 mg/dL (8.4-10.2); Carbon Dioxide 30 mmol/L (22-29); Chloride 106 mmol/L (96-108); Cholesterol 150 mg/dL; Estimated Glomerular Filt Rate > 60; Glucose Fasting 97 mg/dL (60-99); HDL Cholesterol 50 mg/dL; LDL Cholesterol Calculated 57 mg/dl; Potassium 4.2 mmol/L (3.3-5.1); Sodium 144 mmol/L (135-145); Triglycerides 215 mg/dL
[2021-08-09 08:15] LABS: Vitamin D 25-OH Total 38.3 ng/mL (>30)
== END 2021-08-09 06:35 | disposition home or self-care (01) ==
LOC: HO.LAB 06:34
PROVIDERS: PCP Internal Medicine; Visit Provider Internal Medicine
DX: E55.9 Vitamin D deficiency, unspecified (principal); E78.00 Pure hypercholesterolemia, unspecified
CPT/HCPCS: 36415; 80048; 80053; 80061; 82306

== ENCOUNTER 2021-08-25 10:00 | Outpatient (RCR) | payer MEDICARE, OTHER, SELFPAY ==
--- NOTE | 2021-07-07 12:19 | MHC.PT.EP ---
[facility] [place] Office [place] Office [place] Office [address] Bhavani Ferraro [address] [phone] F: [phone] F: [phone] F: [phone] F: [phone] Physical Therapy Plan of Care Date of Evaluation: Date of Surgery: 06/21/21 Diagnosis: right TKA on 06/21/21 Assessment: pt presents to physical therapy post-op from R TKA performed on 06/21/21. pt presents to physical therapy with pain, decreased range of motion, decreased strength, impaired functional mobility, impaired postural awareness, and gait deviations. pt is a good candidate for skilled PT due to age, potential remediation of impairments, typical disease/condition progression and prognosis, comorbidities, and motivation. pt would benefit from tailored strengthening and stretching exercise program, functional training, gait training, postural re-training, neuromuscular re-education, modalities as needed for pain, equipment safety demonstration. Frequency and Duration: The patient will be seen 2x/wk for 8 wks Short Term Goals: pt will be I w/ HEP to promote self-management of condition. pt will improve R knee flexion AROM to at least 95 degrees to promote ease in sitting EOB and in chairs for meals. pt will improve R hip flexion strength to at least 5/5 to promote ease in lifting leg for shower and car transfers. Flask Carrier Goals: pt will report a statistically significant improvement in self-reported outcome measure, LEFI, to promote return to PLOF. pt will ambulate >2600' w/ LRAD to promote return to community level ambulation for grocery shopping and social interaction. pt will demonstrate 0 degrees knee extension to normalize gait mechanics on even ground w/ LRAD. Treatment Plan: Modalities to reduce pain, spasms and effusion. Manual therapy to restore motion and function. Therapeutic exercise to improve strength and flexibility. Neuromuscular re-education for posture and balance. Therapeutic activities to return to functional activities of daily living. Electronically signed by: Soraida Mcmullen PT, DPT Please sign and return to therapist. Thank you for your referral.
--- NOTE | 2021-08-25 13:49 | MHC.PT.DC ---
[facility] [place] Office [place] Office [place] Office [address] Ferraro [address] [phone] F: [phone] F: [phone] F: [phone] F: [phone] Physical Therapy Discharge Report Diagnosis: right TKA on 06/21/21 Date of Surgery: 06/21/21 Date of Evaluation: 07/07/21 Date of Discharge: 08/25/21 Treatments to Date: 14 Cancellations to Date: 0 No Shows to Date: 0 Discharge Status: Improved Function Independent with HEP Discharge Summary: The patient overall has progressed well with physical therapy intervention. She is independent with her home exercise program. She has maintained the flexion and extension range of motion she has achieved so far. She requires some occasional cueing for stair sequencing but always uses a railing to maintain safety. She is discharged from this physical therapy plan of care to her home exercise program. Electronically signed by: Soraida Mcmullen PT, DPT Please sign and return to therapist. Thank you for your referral.
== END 2021-08-25 13:49 | disposition home or self-care (01) ==
LOC: HO.PT 10:00
PROVIDERS: Visit Provider Physician Assistant
DX: Z96.651 Presence of right artificial knee joint (principal)
CPT/HCPCS: 97110; 97140; 97162; 97530

== ENCOUNTER 2021-09-01 07:50 | Outpatient (REF) | payer MEDICARE, OTHER, SELFPAY | END 2021-09-01 07:51 | disposition home or self-care (01) | LOC: HO.MDS 07:50 | PROVIDERS: Visit Provider Psychiatry & Neurology Neurology | DX: G35 Multiple sclerosis (principal) | CPT/HCPCS: 96365; J2930 ==

== ENCOUNTER → 2021-09-16 09:21 | Outpatient (BNVA) | payer MEDICARE, OTHER, SELFPAY | PROVIDERS: Visit Provider Orthopaedic Surgery | DX: Z47.1 Aftercare following joint replacement surgery (principal); Z96.651 Presence of right artificial knee joint | CPT/HCPCS: 99212 ==

== ENCOUNTER 2021-10-04 07:47 | Outpatient (REF) | payer MEDICARE, OTHER, SELFPAY | END 2021-10-04 07:48 | disposition home or self-care (01) | LOC: HO.MDS 07:47 | PROVIDERS: Visit Provider Psychiatry & Neurology Neurology | DX: G35 Multiple sclerosis (principal) | CPT/HCPCS: 96365; J2930 ==

== ENCOUNTER 2021-11-03 07:50 | Outpatient (REF) | payer MEDICARE, OTHER, SELFPAY | END 2021-11-03 07:51 | disposition home or self-care (01) | LOC: HO.MDS 07:50 | PROVIDERS: Visit Provider Psychiatry & Neurology Neurology | DX: G35 Multiple sclerosis (principal) | CPT/HCPCS: 96365; J2930 ==

== ENCOUNTER 2021-11-28 14:26 | Outpatient (REF) | payer MEDICARE, OTHER, SELFPAY ==
--- NOTE | ~2021-11-28 | XR_ITS ---
EXAMINATION: XR SHOULDER, RIGHT XR SHOULDER, LEFT CLINICAL INFORMATION: Pain COMPARISON: 10/24/2013 and 03/06/2011. TECHNIQUE: 3 views of each shoulder. FINDINGS: LEFT SHOULDER: There is no evidence of acute fracture or dislocation of the left shoulder. Glenohumeral joint appears unremarkable. No significant acromioclavicular joint degenerative changes seen. There is no widening of the coracoclavicular space. No calcific tendinitis. Right shoulder: There is no evidence acute fracture or dislocation of the right shoulder. There is minimal spurring about the glenohumeral joint without joint space narrowing. There is no evidence of calcific tendinitis. There is mild degenerative change of the right acromioclavicular joint with spurring. There is no widening of the coracoclavicular space. XR/XR shoulder RT min 2V IMPRESSION: No significant left shoulder bony abnormality appreciated. Mild degenerative change of the right shoulder as described.
--- NOTE | ~2021-11-28 | XR_ITS ---
EXAMINATION: XR SHOULDER, RIGHT XR SHOULDER, LEFT CLINICAL INFORMATION: Pain COMPARISON: 10/24/2013 and 03/06/2011. TECHNIQUE: 3 views of each shoulder. FINDINGS: LEFT SHOULDER: There is no evidence of acute fracture or dislocation of the left shoulder. Glenohumeral joint appears unremarkable. No significant acromioclavicular joint degenerative changes seen. There is no widening of the coracoclavicular space. No calcific tendinitis. Right shoulder: There is no evidence acute fracture or dislocation of the right shoulder. There is minimal spurring about the glenohumeral joint without joint space narrowing. There is no evidence of calcific tendinitis. There is mild degenerative change of the right acromioclavicular joint with spurring. There is no widening of the coracoclavicular space. XR/XR shoulder LT min 2V IMPRESSION: No significant left shoulder bony abnormality appreciated. Mild degenerative change of the right shoulder as described.
== END 2021-11-28 14:27 | disposition home or self-care (01) ==
LOC: HO.HOSX 14:26
PROVIDERS: Visit Provider Physician Assistant
DX: M75.81 Other shoulder lesions, right shoulder (principal); M75.82 Other shoulder lesions, left shoulder
CPT/HCPCS: 20610; 73030; 99212; J1040

== ENCOUNTER 2021-12-01 07:47 | Outpatient (REF) | payer MEDICARE, OTHER, SELFPAY | END 2021-12-01 07:48 | disposition home or self-care (01) | LOC: HO.MDS 07:47 | PROVIDERS: Visit Provider Psychiatry & Neurology Neurology | DX: G35 Multiple sclerosis (principal) | CPT/HCPCS: 96365; J2930 ==

== ENCOUNTER 2021-12-29 07:44 | Outpatient (REF) | payer MEDICARE, OTHER, SELFPAY | END 2021-12-29 07:45 | disposition home or self-care (01) | LOC: HO.MDS 07:44 | PROVIDERS: Visit Provider Psychiatry & Neurology Neurology | DX: G35 Multiple sclerosis (principal) | CPT/HCPCS: 96413; J2930 ==

== ENCOUNTER 2022-01-04 05:58 | Outpatient (REF) | payer MEDICARE, OTHER, SELFPAY ==
[2022-01-04 06:14] LABS: MANUAL DIFF FLAG NO
[2022-01-04 07:50] LABS: Basophils Percent Auto 0.7 % (0-2); Eosinophils Absolute Auto 0.3 X10*3/uL (0.0-0.4); Eosinophils Percent Auto 4.5 % (0-4); Hematocrit 39.5 % (37.0-47.0); Hemoglobin 12.3 g/dl (12.0-16.0); Imm Gran Abs Auto 0.04 X10*3/uL (0.00-0.03); Imm Gran Pct Auto 0.7 % (0.0-0.4); Lymphocytes Absolute Auto 2.5 X10*3/uL (1.2-4.9); Lymphocytes Percent Auto 41.9 % (20-40); Mean Corpuscular HGB Conc 31.1 g/dl (31.0-35.0); Mean Corpuscular Hemoglobin 28.5 pg (27.0-33.0); Mean Corpuscular Volume 91.4 fL (80.0-98.0); Mean Platelet Volume 10.6 fL (9.4-12.3); Monocytes Absolute Auto 0.4 X10*3/uL (0.1-1.2); Monocytes Percent Auto 7.4 % (2-11); Neutrophils Absolute Auto 2.7 x10*3/uL (2.0-8.3); Neutrophils Percent Auto 44.8 % (45-73); Platelet Count 212 X10*3/uL (160-400); Red Blood Count 4.32 X10*6/uL (4.20-5.50); Red Cell Distribution Width 13.3 % (11.0-16.0); White Blood Count 5.9 X10*3/uL (4.8-10.8)
[2022-01-04 08:12] LABS: Alanine Aminotransferase 30 U/L (0-31); Albumin Level 4.2 g/dL (3.5-5.0); Alkaline Phosphatase 72 U/L (39-117); Anion Gap 14 (12-20); Aspartate Amino Transferase 19 U/L (5-31); Bilirubin Total 0.2 mg/dL (0.0-1.0); Blood Urea Nitrogen 33 mg/dL (9-16); Calcium 9.2 mg/dL (8.4-10.2); Carbon Dioxide 28 mmol/L (22-29); Chloride 107 mmol/L (96-108); Cholesterol 165 mg/dL; Estimated Glomerular Filt Rate > 60; Glucose Fasting 81 mg/dL (60-99); HDL Cholesterol 67 mg/dL; Iron 94 mcg/dL (30-160); LDL Cholesterol Calculated 73 mg/dl; Percent Iron Saturation 22 % (15-50); Sodium 145 mmol/L (135-145); Total Iron Binding Capacity 419 mcg/dL (228-428); Total Protein 6.6 g/dL (6.5-8.0); Triglycerides 129 mg/dL; Unsaturated Iron Binding 325 ug/dL
[2022-01-04 08:41] LABS: TSH reflex Free T4 1.95 uIU/mL (0.32-4.0); Vitamin D 25-OH Total 34.2 ng/mL (>30)
[2022-01-04 10:20] LABS: Appearance Urine Clear; Color Urine Yellow; Glucose Urine UA Negative (Negative); Leukocyte Esterase Urine Negative (Negative); Nitrite Urine Negative (Negative); PH 5.5 (5.0-8.0); Specific Gravity - Urine 1.025 (1.005-1.025); Urine Blood Negative (Negative); Urine Ketones Negative (Negative); Urine Protein Negative (Neg-Trace)
== END 2022-01-04 05:59 | disposition home or self-care (01) ==
LOC: HO.LAB 05:58
PROVIDERS: PCP Internal Medicine; Visit Provider Internal Medicine
DX: E78.00 Pure hypercholesterolemia, unspecified (principal); R33.9 Retention of urine, unspecified; E55.9 Vitamin D deficiency, unspecified; D64.9 Anemia, unspecified
CPT/HCPCS: 36415; 80053; 80061; 81003; 82306; 83540; 84443; 85025

== ENCOUNTER 2022-01-12 12:18 | Outpatient (REF) | payer MEDICARE, OTHER, SELFPAY ==
--- NOTE | ~2022-01-12 | XR_ITS ---
EXAMINATION: BILATERAL STANDING KNEES. RIGHT KNEE 2 VIEWS CLINICAL INFORMATION: Unspecified pain COMPARISON: 08/05/2021 TECHNIQUE: 3 views of each knee FINDINGS: Right knee: Knee prosthesis intact. No plain film evidence for loosening. In the right knee, there is no fracture, dislocation or destructive lesion or joint effusion. Findings are stable. Left knee: AP view only of the left knee shows marginal spurring and lateral joint space of the lateral tibial plateau unchanged. No fracture or destructive process. Alignment preserved. No change. XR/XR knee RT 2V IMPRESSION: Stable findings.
--- NOTE | ~2022-01-12 | XR_ITS ---
EXAMINATION: BILATERAL STANDING KNEES. RIGHT KNEE 2 VIEWS CLINICAL INFORMATION: Unspecified pain COMPARISON: 08/05/2021 TECHNIQUE: 3 views of each knee FINDINGS: Right knee: Knee prosthesis intact. No plain film evidence for loosening. In the right knee, there is no fracture, dislocation or destructive lesion or joint effusion. Findings are stable. Left knee: AP view only of the left knee shows marginal spurring and lateral joint space of the lateral tibial plateau unchanged. No fracture or destructive process. Alignment preserved. No change. XR/XR knee standing BI IMPRESSION: Stable findings.
== END 2022-01-12 12:19 | disposition home or self-care (01) ==
LOC: HO.HOSX 12:18
PROVIDERS: Visit Provider Orthopaedic Surgery
DX: M25.561 Pain in right knee (principal); Z96.651 Presence of right artificial knee joint
CPT/HCPCS: 73560; 73565; 99212

== ENCOUNTER 2022-01-27 07:52 | Outpatient (REF) | payer MEDICARE, OTHER, SELFPAY | END 2022-01-27 07:53 | disposition home or self-care (01) | LOC: HO.MDS 07:52 | PROVIDERS: Visit Provider Psychiatry & Neurology Neurology | DX: G35 Multiple sclerosis (principal) | CPT/HCPCS: 96365; J2930 ==

== ENCOUNTER 2022-02-08 06:11 | Outpatient (REF) | payer MEDICARE, OTHER, SELFPAY ==
--- NOTE | ~2022-02-08 | XR_ITS ---
EXAMINATION: XR ABDOMEN COMPLETE CLINICAL INDICATION: Abdominal distention. COMPARISON: None TECHNIQUE: 2 views of the abdomen. FINDINGS: There is a nonobstructive bowel gas pattern. Mild gas and stool are seen within the colon distally to the rectum. No radiopaque calculi are seen overlying the kidneys or along the expected courses of the ureters bilaterally. Phleboliths are seen in the inferior pelvis bilaterally. Mild to moderate multilevel degenerative changes in the the proximal lumbar spine and hips bilaterally. XR/XR abdomen 3V IMPRESSION: Nonobstructive bowel gas pattern. Mild colonic stool burden.
== END 2022-02-08 06:12 | disposition home or self-care (01) ==
LOC: HO.XRAY 06:11
PROVIDERS: PCP Internal Medicine; Visit Provider Internal Medicine
DX: R14.0 Abdominal distension (gaseous) (principal)
CPT/HCPCS: 74021

== ENCOUNTER → 2022-02-16 08:21 | Outpatient (BNVA) | payer MEDICARE, OTHER, SELFPAY | PROVIDERS: PCP Internal Medicine; Visit Provider Nurse Practitioner | DX: Z01.818 Encounter for other preprocedural examination (principal); R19.7 Diarrhea, unspecified; J44.9 Chronic obstructive pulmonary disease, unspecified | CPT/HCPCS: 99202; 99212 ==

== ENCOUNTER 2022-02-17 05:53 | Outpatient (REF) | payer MEDICARE, OTHER, SELFPAY ==
[2022-02-17 07:50] LABS: C Reactive Protein 0.19 mg/dL (< or = 0.50)
[2022-02-21 06:53] LABS: Transglutaminase Ab IgG <1.0 U/mL; Transglutaminase IgA <1.0 U/mL
== END 2022-02-17 05:54 | disposition home or self-care (01) ==
LOC: HO.LAB 05:53
PROVIDERS: PCP Internal Medicine; Visit Provider Nurse Practitioner
DX: K52.9 Noninfective gastroenteritis and colitis, unspecified (principal); Z01.82 Encounter for allergy testing
CPT/HCPCS: 36415; 86003; 86140; 86364

== ENCOUNTER 2022-02-23 14:40 | Outpatient (REF) | payer MEDICARE, OTHER, SELFPAY ==
[2022-02-24 09:39] LABS: Adenovirus F 40/41 Not Detected (Not Detect.); Astrovirus Not Detected (Not Detect.); Campylobacter Not Detected (Not Detect.); Cryptosporidium Not Detected (Not Detect.); Cyclospora cayetanensis Not Detected (Not Detect.); E. coli EAEC Not Detected (Not Detect.); E. coli EPEC Not Detected (Not Detect.); E. coli ETEC Not Detected (Not Detect.); E. coli STEC Not Detected (Not Detect.); Entamoeba histolytica Not Detected (Not Detect.); Giardia lamblia Not Detected (Not Detect.); Norovirus GI/GII Not Detected (Not Detect.); Plesiomonas shigelloides Not Detected (Not Detect.); Rotavirus A Not Detected (Not Detect.); Salmonella Not Detected (Not Detect.); Sapovirus Not Detected (Not Detect.); Shigella sp./EIEC Not Detected (Not Detect.); Vibrio Not Detected (Not Detect.); Vibrio Cholerae Not Detected (Not Detect.); Yersinia enterocolitica Not Detected (Not Detect.)
[2022-03-03 16:46] LABS: Pancreatic Elastase-1 >500 mcg/g
== END 2022-02-23 14:41 | disposition home or self-care (01) ==
LOC: HO.LNP 14:40
PROVIDERS: Visit Provider Nurse Practitioner
DX: R19.7 Diarrhea, unspecified (principal)
CPT/HCPCS: 82656; 87338; 87507

== ENCOUNTER 2022-02-24 07:48 | Outpatient (REF) | payer MEDICARE, OTHER, SELFPAY | END 2022-02-24 07:49 | disposition home or self-care (01) | LOC: HO.MDS 07:48 | PROVIDERS: Visit Provider Psychiatry & Neurology Neurology | DX: G35 Multiple sclerosis (principal) | CPT/HCPCS: 96365; J2930 ==

== ENCOUNTER 2022-03-24 07:49 | Outpatient (REF) | payer MEDICARE, OTHER, SELFPAY | END 2022-03-24 07:50 | disposition home or self-care (01) | LOC: HO.MDS 07:49 | PROVIDERS: Visit Provider Psychiatry & Neurology Neurology | DX: G35 Multiple sclerosis (principal) | CPT/HCPCS: 96365; J2930 ==

== ENCOUNTER → 2022-03-30 08:40 | Outpatient (BNVA) | payer MEDICARE, OTHER, SELFPAY | PROVIDERS: PCP Internal Medicine; Visit Provider Nurse Practitioner | DX: Z12.11 Encounter for screening for malignant neoplasm of colon (principal); R19.7 Diarrhea, unspecified; R14.0 Abdominal distension (gaseous) | CPT/HCPCS: 99212 ==

== ENCOUNTER 2022-04-03 10:52 | Outpatient (REF) | payer MEDICARE, OTHER, SELFPAY | END 2022-04-03 10:53 | disposition home or self-care (01) | LOC: HO.MDS 10:52 | PROVIDERS: Visit Provider Psychiatry & Neurology Neurology | DX: G35 Multiple sclerosis (principal) | CPT/HCPCS: 96365; J2930 ==

== ENCOUNTER 2022-04-04 11:22 | Outpatient (REF) | payer MEDICARE, OTHER, SELFPAY | END 2022-04-04 11:23 | disposition home or self-care (01) | LOC: HO.MDS 11:22 | PROVIDERS: Visit Provider Psychiatry & Neurology Neurology | DX: G35 Multiple sclerosis (principal) | CPT/HCPCS: 96365; J2930 ==

== ENCOUNTER 2022-04-05 07:22 | Outpatient (REF) | payer MEDICARE, OTHER, SELFPAY | END 2022-04-05 07:23 | disposition home or self-care (01) | LOC: HO.MDS 07:22 | PROVIDERS: Visit Provider Psychiatry & Neurology Neurology | DX: G35 Multiple sclerosis (principal) | CPT/HCPCS: 96365; J2930 ==

== ENCOUNTER 2022-04-10 11:05 | Outpatient (REF) | payer MEDICARE, OTHER, SELFPAY | END 2022-04-10 11:06 | disposition home or self-care (01) | LOC: HO.HOSX 11:05 | PROVIDERS: Visit Provider Orthopaedic Surgery | DX: M25.532 Pain in left wrist (principal) ==

== ENCOUNTER 2022-04-11 10:26 | Outpatient (REF) | payer MEDICARE, OTHER, SELFPAY ==
--- NOTE | ~2022-04-11 | XR_ITS ---
EXAMINATION: XR WRIST, LEFT CLINICAL INFORMATION: Pain COMPARISON: None TECHNIQUE: PA, lateral, and oblique views of the left wrist. FINDINGS: The bones and soft tissues are normal. No fracture. Alignment is anatomic with normal joint spaces. No erosions or abnormal soft tissue calcifications. XR/XR wrist LT min 3V IMPRESSION: Unremarkable left wrist exam.
== END 2022-04-11 10:27 | disposition home or self-care (01) ==
LOC: HO.HOSX 10:26
PROVIDERS: Visit Provider Orthopaedic Surgery
DX: Z13.89 Encounter for screening for other disorder (principal)

== ENCOUNTER → 2022-04-13 12:20 | Outpatient (BNVA) | payer MEDICARE, OTHER, SELFPAY | PROVIDERS: PCP Internal Medicine; Visit Provider Orthopaedic Surgery | DX: M79.642 Pain in left hand (principal); M79.641 Pain in right hand | CPT/HCPCS: 73110; 99202 ==

== ENCOUNTER 2022-04-14 15:12 | Outpatient (REF) | payer MEDICARE, OTHER, SELFPAY ==
--- NOTE | ~2022-04-14 | MR_ITS ---
EXAMINATION: MR BRAIN WITHOUT AND WITH CONTRAST CLINICAL INFORMATION: 67-year-old with MS. Follow-up exam. COMPARISON: 08/26/2020 MRI. TECHNIQUE: Multiplanar, multisequence MRI of the brain was obtained before and after the intravenous administration of 8 mL Gadavist. FINDINGS: Brain Volume: Within normal limits within the limitations of qualitative assessment, stable in appearance. Structural: No malformations. Brain and Meninges: DWI sequence demonstrates no brain parenchymal restricted diffusion to suggest acute or subacute cerebral ischemia or active demyelination. Redemonstrated are scattered T2 hyperintense white matter lesions throughout both cerebral hemispheres with a stable overall pattern and distribution when compared to the prior study. No definite new lesions are identified and there is no abnormal enhancement to suggest active demyelination. No intracranial mass lesions, extra-axial fluid collections, space-occupying process, mass effect or pathologic intracranial enhancement. Ventricles and Subarachnoid Spaces: The ventricular system and subarachnoid spaces are within normal limits without hydrocephalus, stable in appearance. Orbital Structures: The visualized orbital structures are grossly unremarkable within the limitations of the study. Vascular: Signal voids are noted in the visualized major intracranial vessels. Osseous Structures, Sinuses/Mastoids, Extracranial Soft Tissues: Unremarkable MR/MR head/brain wo/w con IMPRESSION: 1. Stable nonenhancing white matter lesions in both cerebral hemispheres with no definite new lesions and no abnormal enhancement to suggest active demyelination. 2. No acute intracranial process.
--- NOTE | ~2022-04-14 | MR_ITS ---
EXAMINATION: MR CERVICAL SPINE WITHOUT AND WITH CONTRAST CLINICAL INFORMATION: 67-year-old with MS. COMPARISON: 08/26/2020 MRI. TECHNIQUE: MRI of the cervical spine was obtained using routine sequences with and without contrast. Intravenous contrast: Gadavist 8 mL. FINDINGS: Alignment: There is mild lordotic reversal centered at C4-C5 slightly more prominent on current study with trace anterolisthesis at C3-C4 also slightly more prominent on current exam. Mild retrolisthesis at C5-C6 is stable. Craniocervical Junction/C1-C2 Articulations: Intact and aligned. Visualized Intracranial Structures: Within normal limits. Vertebral Bodies: Vertebral body heights are stable with slight chronic loss of height with mild anterior wedging of the C4 vertebral body, unchanged. Disc Spaces and Endplates: Moderate disc space height loss at C4-C5 and dhmgayar-wl-vbxrmb disc space height loss at C5-C6 and C6-C7 with disc desiccation and Schmorl's nodes, stable in appearance and mild spondylosis at these levels, unchanged. Zunj-jx-kzwagftk disc space height loss at C7-T1 is stable. Bone Marrow: Minimal subchondral bone marrow edema and marrow enhancement on both sides of the left C3-C4 facet joint similar in appearance to the previous exam consistent with left-sided facet arthrosis, unchanged. Otherwise, no suspicious marrow replacing process or other bone marrow edema. Type II degenerative marrow signal changes along the endplates at C4-C5 and C5-C6 are unchanged. C2-C3: No disc herniation or canal stenosis. Mild right and yueq-gv-rcnothkw left facet arthrosis stable in appearance without significant neural foraminal stenosis. C3-C4: Slight anterolisthesis at this level slightly more prominent on current study with mild posterolateral disc osteophyte complex asymmetric to the left unchanged and mild flattening the ventral dural sac without cord impingement or canal stenosis. Moderate right and marked left-sided facet arthropathy is unchanged with some active inflammatory changes at the left facet joint unchanged. There is moderate to left and mild right-sided neural foraminal stenosis, stable in appearance. C4-C5: Broad-based disc osteophyte complex asymmetric to the right stable in appearance with flattening of the ventral dural sac without cord compression. Iysi-uz-eegsmjmj central spinal canal stenosis is stable. There is bilateral uncovertebral spurring and gyauwnuc-lx-vyrdfr facet arthropathy right more than left unchanged in appearance. Fdmbbjsr-np-zidubj bilateral neural foraminal stenosis is stable. C5-C6: Broad-based disc osteophyte complex with effacement of the ventral dural sac without cord compression stable in appearance. Moderate spinal canal stenosis is unchanged. Bilateral uncovertebral spurring and ssph-ro-pkazgjud facet arthropathy right more than left is stable with severe right-sided and ntibxhxz-kn-tzbwsy left-sided neural foraminal stenosis, stable in appearance. C6-C7: Broad-based disc osteophyte complex unchanged with mild flattening the ventral dural sac without cord impingement. Mild canal stenosis is unchanged. There is uncovertebral spurring and facet arthropathy bilaterally with moderate right-sided and zlqpydtp-nv-uvlmbn left-sided neural foraminal stenosis, stable in appearance. C7-T1: Right paramedian to foraminal disc protrusion and disc osteophyte complex is similar to prior exam with mild right-sided foraminal narrowing unchanged. Small central to left paramedian disc osteophyte complex noted, unchanged. No canal stenosis. Spinal Cord: Faint, vaguely defined patchy T2 hyperintensity in the spinal cord at the C2-C3, stable in appearance with no abnormal enhancement. Faint small T2 hyperintense focus on the left side of the spinal cord at C3 with no abnormal enhancement, stable in appearance. T2 hyperintense lesion at C5-C6 centrally and to the right of midline with no abnormal enhancement is stable. No definite new lesions are seen and there is no abnormal spinal cord or leptomeningeal enhancement. Extracranial Soft Tissues: The visualized extracranial head/neck soft tissues are unremarkable within the limitations of the study. MR/MR cervical spine wo/w con IMPRESSION: 1. Stable nonenhancing spinal cord lesions. No evidence for active demyelination and no definite new lesions are seen. 2. Multilevel degenerative changes largely similar to the previous exam with multilevel DDD, DJD and spinal canal stenosis, largely unchanged.
== END 2022-04-14 15:13 | disposition home or self-care (01) ==
LOC: HO.MRI 15:12
PROVIDERS: Visit Provider Psychiatry & Neurology Neurology
DX: G35 Multiple sclerosis (principal)
CPT/HCPCS: 70553; 72156; A9585

== ENCOUNTER 2022-04-21 08:16 | Outpatient (REF) | payer MEDICARE, OTHER, SELFPAY | END 2022-04-21 08:17 | disposition home or self-care (01) | LOC: HO.MDS 08:16 | PROVIDERS: Visit Provider Psychiatry & Neurology Neurology | DX: G35 Multiple sclerosis (principal) | CPT/HCPCS: 96365; J2930 ==

== ENCOUNTER 2022-05-19 07:47 | Outpatient (REF) | payer MEDICARE, OTHER, SELFPAY | END 2022-05-19 07:48 | disposition home or self-care (01) | LOC: HO.MDS 07:47 | PROVIDERS: Visit Provider Psychiatry & Neurology Neurology | DX: G35 Multiple sclerosis (principal) | CPT/HCPCS: 96365; J2930 ==

== ENCOUNTER 2022-06-16 07:49 | Outpatient (REF) | payer MEDICARE, OTHER, SELFPAY | END 2022-06-16 07:50 | disposition home or self-care (01) | LOC: HO.MDS 07:49 | PROVIDERS: Visit Provider Psychiatry & Neurology Neurology | DX: G35 Multiple sclerosis (principal) | CPT/HCPCS: 96365; J2930 ==

== ENCOUNTER 2022-06-19 06:01 | Outpatient (REF) | payer MEDICARE, OTHER, SELFPAY ==
[2022-06-19 06:13] LABS: MANUAL DIFF FLAG NO
[2022-06-19 07:42] LABS: Basophils Absolute Auto 0.1 X10*3/uL (0.0-0.2); Basophils Percent Auto 0.7 % (0-2); Eosinophils Absolute Auto 0.4 X10*3/uL (0.0-0.4); Eosinophils Percent Auto 5.3 % (0-4); Hematocrit 44.9 % (37.0-47.0); Hemoglobin 13.8 g/dl (12.0-16.0); Imm Gran Abs Auto 0.02 X10*3/uL (0.00-0.03); Imm Gran Pct Auto 0.2 % (0.0-0.4); Lymphocytes Absolute Auto 3.1 X10*3/uL (1.2-4.9); Lymphocytes Percent Auto 37.3 % (20-40); Mean Corpuscular HGB Conc 30.7 g/dl (31.0-35.0); Mean Corpuscular Hemoglobin 27.2 pg (27.0-33.0); Mean Corpuscular Volume 88.4 fL (80.0-98.0); Monocytes Absolute Auto 0.6 X10*3/uL (0.1-1.2); Monocytes Percent Auto 6.8 % (2-11); Neutrophils Absolute Auto 4.2 x10*3/uL (2.0-8.3); Neutrophils Percent Auto 49.7 % (45-73); Platelet Count 227 X10*3/uL (160-400); Red Blood Count 5.08 X10*6/uL (4.20-5.50); Red Cell Distribution Width 14.2 % (11.0-16.0); White Blood Count 8.4 X10*3/uL (4.8-10.8)
[2022-06-19 08:17] LABS: Appearance Urine Hazy; Color Urine Yellow; Glucose Urine UA Negative (Negative); Leukocyte Esterase Urine Negative (Negative); Nitrite Urine Negative (Negative); Specific Gravity - Urine 1.025 (1.005-1.025); Urine Blood Negative (Negative); Urine Ketones Negative (Negative); Urine Protein Negative (Neg-Trace)
[2022-06-19 08:22] LABS: Alanine Aminotransferase 15 U/L (0-31); Albumin Level 4.4 g/dL (3.5-5.0); Alkaline Phosphatase 65 U/L (39-117); Anion Gap 15 (12-20); Aspartate Amino Transferase 15 U/L (5-31); Bilirubin Total 0.3 mg/dL (0.0-1.0); Blood Urea Nitrogen 33 mg/dL (9-16); Calcium 9.5 mg/dL (8.4-10.2); Carbon Dioxide 28 mmol/L (22-29); Chloride 107 mmol/L (96-108); Cholesterol 224 mg/dL; Estimated Glomerular Filt Rate > 60; Glucose Fasting 85 mg/dL (60-99); HDL Cholesterol 52 mg/dL; LDL Cholesterol Calculated 139 mg/dl; Potassium 3.7 mmol/L (3.3-5.1); Sodium 146 mmol/L (135-145); Total Protein 6.6 g/dL (6.5-8.0); Triglycerides 168 mg/dL
[2022-06-19 08:25] LABS: TSH reflex Free T4 2.48 uIU/mL (0.32-4.0); Vitamin D 25-OH Total 32.1 ng/mL (>30)
== END 2022-06-19 06:02 | disposition home or self-care (01) ==
LOC: HO.LAB 06:01
PROVIDERS: PCP Internal Medicine; Visit Provider Internal Medicine
DX: E55.9 Vitamin D deficiency, unspecified (principal); E78.00 Pure hypercholesterolemia, unspecified; I10 Essential (primary) hypertension
CPT/HCPCS: 36415; 80053; 80061; 81003; 82306; 84443; 85025

== ENCOUNTER 2022-07-14 07:46 | Outpatient (REF) | payer MEDICARE, OTHER, SELFPAY | END 2022-07-14 07:47 | disposition home or self-care (01) | LOC: HO.MDS 07:46 | PROVIDERS: Visit Provider Psychiatry & Neurology Neurology | DX: G35 Multiple sclerosis (principal) | CPT/HCPCS: 96365; J2930 ==

== ENCOUNTER 2022-08-11 07:19 | Outpatient (REF) | payer MEDICARE, OTHER, SELFPAY | END 2022-08-11 07:20 | disposition home or self-care (01) | LOC: HO.MDS 07:19 | PROVIDERS: Visit Provider Psychiatry & Neurology Neurology | DX: G35 Multiple sclerosis (principal) | CPT/HCPCS: 96365; J2930 ==

== ENCOUNTER 2022-09-08 07:43 | Outpatient (REF) | payer MEDICARE, OTHER, SELFPAY | END 2022-09-08 07:44 | disposition home or self-care (01) | LOC: HO.MDS 07:43 | PROVIDERS: Visit Provider Psychiatry & Neurology Neurology | DX: G35 Multiple sclerosis (principal) | CPT/HCPCS: 96365; J2930 ==

== ENCOUNTER 2022-10-06 07:27 | Outpatient (REF) | payer MEDICARE, OTHER, SELFPAY | END 2022-10-06 07:28 | disposition home or self-care (01) | LOC: HO.MDS 07:27 | PROVIDERS: Visit Provider Psychiatry & Neurology Neurology | DX: G35 Multiple sclerosis (principal) | CPT/HCPCS: 96365; J2930 ==

== ENCOUNTER 2022-10-18 09:33 | Outpatient (REF) | payer MEDICARE, OTHER, SELFPAY ==
[2022-10-18 09:50] LABS: MANUAL DIFF FLAG NO
[2022-10-18 10:40] LABS: Basophils Percent Auto 0.6 % (0-2); Eosinophils Absolute Auto 0.3 X10*3/uL (0.0-0.4); Eosinophils Percent Auto 4.2 % (0-4); Hematocrit 41.6 % (37.0-47.0); Hemoglobin 12.8 g/dl (12.0-16.0); Imm Gran Abs Auto 0.02 X10*3/uL (0.00-0.03); Imm Gran Pct Auto 0.3 % (0.0-0.4); Lymphocytes Absolute Auto 2.4 X10*3/uL (1.2-4.9); Lymphocytes Percent Auto 34.5 % (20-40); Mean Corpuscular HGB Conc 30.8 g/dl (31.0-35.0); Mean Corpuscular Hemoglobin 27.9 pg (27.0-33.0); Mean Corpuscular Volume 90.6 fL (80.0-98.0); Mean Platelet Volume 11.3 fL (9.4-12.3); Monocytes Absolute Auto 0.5 X10*3/uL (0.1-1.2); Monocytes Percent Auto 6.6 % (2-11); Neutrophils Absolute Auto 3.7 x10*3/uL (2.0-8.3); Neutrophils Percent Auto 53.8 % (45-73); Platelet Count 183 X10*3/uL (160-400); Red Blood Count 4.59 X10*6/uL (4.20-5.50); Red Cell Distribution Width 13.1 % (11.0-16.0); White Blood Count 6.9 X10*3/uL (4.8-10.8)
[2022-10-18 11:29] LABS: Alanine Aminotransferase 21 U/L (0-31); Albumin Level 4.3 g/dL (3.5-5.0); Alkaline Phosphatase 73 U/L (39-117); Anion Gap 14 (12-20); Aspartate Amino Transferase 21 U/L (5-31); Bilirubin Total 0.2 mg/dL (0.0-1.0); Blood Urea Nitrogen 24 mg/dL (9-16); Calcium 9.6 mg/dL (8.4-10.2); Carbon Dioxide 28 mmol/L (22-29); Chloride 109 mmol/L (96-108); Cholesterol 147 mg/dL; Estimated Glomerular Filt Rate > 60; Glucose Fasting 90 mg/dL (60-99); HDL Cholesterol 54 mg/dL; LDL Cholesterol Calculated 71 mg/dl; Potassium 4.2 mmol/L (3.3-5.1); Sodium 147 mmol/L (135-145); Total Protein 6.6 g/dL (6.5-8.0); Triglycerides 114 mg/dL
[2022-10-18 11:46] LABS: TSH reflex Free T4 1.51 uIU/mL (0.32-4.0); Vitamin D 25-OH Total 70.6 ng/mL (>30)
[2022-10-18 12:55] LABS: Appearance Urine Cloudy; Color Urine Yellow; Glucose Urine UA Negative (Negative); Leukocyte Esterase Urine Negative (Negative); Nitrite Urine Negative (Negative); PH 5.5 (5.0-9.0); Specific Gravity - Urine >= 1.030 (1.005-1.025); Urine Blood Negative (Negative); Urine Ketones Negative (Negative); Urine Protein Negative (Neg-Trace)
== END 2022-10-18 09:34 | disposition home or self-care (01) ==
LOC: HO.LAB 09:33
PROVIDERS: PCP Internal Medicine; Visit Provider Internal Medicine
DX: E78.00 Pure hypercholesterolemia, unspecified (principal); I10 Essential (primary) hypertension; E55.9 Vitamin D deficiency, unspecified; R30.0 Dysuria
CPT/HCPCS: 36415; 80053; 80061; 81003; 82306; 84443; 85025

== ENCOUNTER 2022-10-31 07:22 | Day surgery (SDC) | payer MEDICARE, OTHER, SELFPAY ==
--- NOTE | 2022-10-30 10:45 | P.CONAN_ITS ---
Documented by User: Laureen Hayes NP 10/30/22 10:46 HPI - Anesthesia Eval Consult details Narrative: 67yo F for Colonoscopy PMFSH Active Problems Active Problems: All Active Problems (Updated 04/13/22 @ 13:39 by Ewelina Bautista MD) Bilateral hand pain (Acute) Diarrhea (Acute) Pre-op examination (Acute) Colon cancer screening (Acute) Primary osteoarthritis of right knee (Acute) Multiple sclerosis (Acute) Benign skin lesion of forehead (Acute) Initial Medicare annual wellness visit (Acute) Medicare annual wellness visit, subsequent (Acute) Abdominal bloating (Acute) Tendonitis of both rotator cuffs (Acute) Anemia (Acute) Urinary retention (Acute) Status post total knee replacement, right (Acute) Overweight (BMI 25.0-29.9) (Acute) Right foot sprain (Acute) Preoperative examination (Acute) Restless leg syndrome (Acute) Obesity (BMI 30-39.9) (Acute) Anxiety (Acute) Bipolar depression (Acute) Irritable bowel syndrome (IBS) (Acute) Chronic obstructive pulmonary disease (COPD) (Acute) Pure hypercholesterolemia (Acute) Past Medical History Medical History (Updated 10/31/22 @ 07:41 by Nery Mckeon, RN) Anemia Anxiety Bipolar depression Chronic obstructive pulmonary disease (COPD) Irritable bowel syndrome (IBS) Multiple sclerosis Normal colonoscopy Obesity (BMI 30-39.9) Primary osteoarthritis of right knee Pure hypercholesterolemia Restless leg syndrome Family History Family History Mother Lung cancer, Onset Age: 56 Father Heart problem Family history of problems with anesthesia: No Surgical History Surgical History H/O knee surgery History of back surgery History of tubal ligation Hx of arthroscopic knee surgery Hx of colonoscopy History of Problems with Anesthesia: No Social History Social History Housing: Apartment Are you a primary healthcare customer service to a significant other at home: No Do you presently have visiting nurse or other home services: No Alcohol intake: never Patient Tobacco Use Status: Former Tobacco user Quit Date: 5 yrs ago Tobacco use type: Cigarette e-Cigarette/Vaping Use: Never Used Second Hand Smoke Exposure: No service: No Current occupational status: retired 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 Cognitive needs: No Hearing needs: No Vision needs: Yes Meds Allergies Allergy/AdvReac Type Severity Reaction Status Date / Time codeine [Codeine] AdvReac Mild UPSET Verified 10/31/22 08:09 STOMACH AND BAD DREAMS Home Medications Medication Instructions Recorded Confirmed Last Taken Type aripiprazole 30 mg tablet (Abilify) 30 mg PO DAILY 06/18/20 10/26/22 06/21/21 History carisoprodol 350 mg tablet 350 mg PO TID 06/18/20 10/26/22 Unknown History gabapentin 600 mg tablet 600 mg PO TID 06/18/20 10/26/22 06/21/21 History lorazepam 2 mg tablet 2 mg PO BID PRN Anxiety 06/18/20 10/26/22 Unknown History mirtazapine 45 mg tablet 45 mg PO BEDTIME 06/18/20 10/26/22 Unknown History pramipexole 0.5 mg tablet 0.5 mg PO BEDTIME 06/02/21 10/26/22 Unknown History solu medrol IV IV .once a month 02/16/22 10/23/22 Unknown History vortioxetine 10 mg tablet 20 mg PO DAILY 06/23/22 10/26/22 Unknown History (Trintellix) albuterol sulfate 90 mcg/actuation 2 puff inhalation Q4-6H PRN 10/31/22 10/31/22 Unknown History aerosol inhaler Shortness Of Breath Or Wheezing Exam Exam Date and Time: October 30, 2022 104 Assessment and Plan Assessment Anesthesia Assessment: Chart Reviewed Final Anesthetic Review Family History of Problems with Anesthesia: No History of Problems with Anesthesia: No Documented by User: Nilay Stevens MD 10/31/22 17:58 HPI - Anesthesia Eval Consult details Narrative: 67yo F for Colonoscopy balance issues and eye issues from MS PMFSH Past Medical History Medical History (Updated 10/31/22 @ 07:41 by Nery Mckeon RN) Anemia Anxiety Bipolar depression Chronic obstructive pulmonary disease (COPD) Irritable bowel syndrome (IBS) Multiple sclerosis Normal colonoscopy Obesity (BMI 30-39.9) Primary osteoarthritis of right knee Pure hypercholesterolemia Restless leg syndrome Family History Family History Mother Lung cancer, Onset Age: 56 Father Heart problem Surgical History Surgical History H/O knee surgery History of back surgery History of tubal ligation Hx of arthroscopic knee surgery Hx of colonoscopy Social History Social History Housing: Apartment Are you a primary healthcare customer service to a significant other at home: No Do you presently have visiting nurse or other home services: No Alcohol intake: never Patient Tobacco Use Status: Former Tobacco user Quit Date: 5 yrs ago Tobacco use type: Cigarette e-Cigarette/Vaping Use: Never Used Second Hand Smoke Exposure: No service: No Current occupational status: retired 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 Cognitive needs: No Hearing needs: No Vision needs: Yes Meds Allergies Allergy/AdvReac Type Severity Reaction Status Date / Time codeine [Codeine] AdvReac Mild UPSET Verified 10/31/22 08:09 STOMACH AND BAD DREAMS Home Medications Medication Instructions Recorded Confirmed Last Taken Type aripiprazole 30 mg tablet (Abilify) 30 mg PO DAILY 06/18/20 10/26/22 06/21/21 History carisoprodol 350 mg tablet 350 mg PO TID 06/18/20 10/26/22 Unknown History gabapentin 600 mg tablet 600 mg PO TID 06/18/20 10/26/22 06/21/21 History lorazepam 2 mg tablet 2 mg PO BID PRN Anxiety 06/18/20 10/26/22 Unknown History mirtazapine 45 mg tablet 45 mg PO BEDTIME 06/18/20 10/26/22 Unknown History pramipexole 0.5 mg tablet 0.5 mg PO BEDTIME 06/02/21 10/26/22 Unknown History solu medrol IV IV .once a month 02/16/22 10/23/22 Unknown History vortioxetine 10 mg tablet 20 mg PO DAILY 06/23/22 10/26/22 Unknown History (Trintellix) albuterol sulfate 90 mcg/actuation 2 puff inhalation Q4-6H PRN 10/31/22 10/31/22 Unknown History aerosol inhaler Shortness Of Breath Or Wheezing Exam Airway Mallampati Class: IV (narrow mouth opening ) Neck ROM: Full Loose/Missing/Broken Teeth: Yes (narrow mouth opening ) Assessment and Plan Assessment Anesthesia Assessment: Anesthesia Plan Discussed Final Anesthetic Review NPO: Yes ASA Class: III Final Preanesthetic Review: Meds/Allgs Chart Reviewed and Consent Obtained/Reviewed Patient Risk: Intermediate Procedure Risk: Intermediate Anesthetic Plan Anesthetic Plan: MAC: and Agree w/ Assess. and Plan Disposition: Standard PACU
[2022-10-31 07:35] VITALS: BMI 30.1
[2022-10-31 08:07] VITALS: BP 137/84; PULSE 75; RESP 15; TEMP 36.8; O2SAT 93
[2022-10-31] MEDS: Lactated Ringers 1,000 ML 100 ML IVCONT (08:09)
--- NOTE | 2022-10-31 08:09 | MHC.SHP ---
Pre-Procedural Eval Section A Date of Service: 10/31/22 Section B Chief Complaint: screening Relevant Family History (Specify if Yes): No Relevant Social History: None Present Medications: see Short Stay Collaborative assessment Medical History: Significant History (Anxiety Bipolar depression Chronic obstructive pulmonary disease (COPD) Irritable bowel syndrome (IBS) Multiple sclerosis Normal colonoscopy Obesity (BMI 30-39.9) Pure hypercholesterolemia) History of Previous Operations: Relevant previous surgery/procedure and date(s) (H/O knee surgery History of back surgery History of tubal ligation Hx of arthroscopic knee surgery Hx of colonoscopy) Allergies: Allergies Allergy/AdvReac Type Severity Reaction Status Date / Time codeine [Codeine] AdvReac Mild UPSET Verified 10/23/22 13:39 STOMACH AND BAD DREAMS Review of Systems Sugical H&P ROS: Negative: Constitution, Cardiovascular, Respiratory, Neurological, Psychiatric, Hem-Onc, Allergic/Immunologic, Gastrointestinal, Genitourinary, Musculoskeletal, Integumentary, Endocrine and Eyes/Ears/Nose/Throat Exam Surgical H&P Exam: Normal: HEENT, Normal: Heart, Normal: Lungs, Normal: Extremities, Normal: Abdomen, Normal: Skin and Normal: Neurological Plan Diagnosis/Plan: Unchanged I have reviewed the history and physical and performed a pertinent physical examination on my patient. No changes have occurred unless specified. Time Spent With Patient Time: Total time managing care of this patient today ____ minutes.
--- NOTE | 2022-10-31 08:11 | P.OP_ITS ---
Operative Note Operative Note Date of Service: 10/31/22 Narrative: Operative Information Procedure Description: Colonoscopy Indication: screening Anesthesia: MAC COLONOSCOPY Instrument: Olympus variable stiffness pediatric scope 190L Colonoscopy Monitoring: Vital signs and clinical assessment, continuous EKG monitoring, Pulse oximetry, Carbon Dioxide monitoring and blood pressure monitoring were done throughout the procedure. Colon withdrawal time was 10 minutes. Procedure: The patient was placed in the left lateral decubitis position and pre-procedure medications were administered. After a digital rectal examination of the ano-rectum, the video colonoscope was inserted into the rectum and advanced through the colon to the cecum/TI. The colonoscope was slowly withdrawn in a retrograde panoramic fashion and the colon mucosa was carefully examined including a retroflexed view of the rectum. Findings and interventions are described below. Procedure Difficulty: difficult due to prep and tortuous colon Findings: Terminal Ileum-normal Cecum:normal Ascending Colon: normal Transverse Colon -normal Descending Colon:normal Sigmoid Colon: moderate diverticulosis Rectum: Retroflexion with small internal hemorrhoids, grade I Anorectum - normal Colon preparation: Copeland Bowel Preparation Scale Right colon; 2 Transverse colon: 1-2 Left colon; 1-2 (0 = Unprepared colon segment with mucosa not seen due to solid stool that cannot be cleared. 1 = Portion of mucosa of the colon segment seen, but other areas of the colon segment not well seen due to staining, residual stool and/or opaque liquid. 2 = Minor amount of residual staining, small fragments of stool and/or opaque liquid, but mucosa of colon segment seen well. 3 = Entire mucosa of colon segment seen well with no residual staining, small fragments of stool or opaque liquid) Impression and Post Procedure Diagnosis: internal hemorrhoids diverticular disease Plan: High fiber diet leaflet Avoid straining at stool, epsom salts and sitz bath, anusol supps or cream Repeat Colonoscopy in 1-2 years or earlier if clinically indicated, next time consider 2 d prep Above findings were reviewed with the patient and relevant handouts were provided if indicated.
[2022-10-31 09:04] VITALS: BP 109/71; PULSE 78; RESP 16; TEMP 36.8; O2SAT 97
[2022-10-31 09:18] VITALS: BP 127/70; PULSE 62; RESP 17; TEMP 36.7; O2SAT 98
== END 2022-10-31 09:36 | disposition home or self-care (01) ==
PROVIDERS: PCP Internal Medicine; Visit Provider Internal Medicine Gastroenterology
PROC: 0DJD8ZZ Inspection of Lower Intestinal Tract, Via Natural or Artificial Opening Endoscopic (ICD-10-PCS; CPT 45378; principal; 2022-10-31 08:30)
DX: Z12.11 Encounter for screening for malignant neoplasm of colon (principal); R19.7 Diarrhea, unspecified; R14.0 Abdominal distension (gaseous); K57.30 Diverticulosis of large intestine without perforation or abscess without bleeding; K64.0 First degree hemorrhoids; K58.9 Irritable bowel syndrome, unspecified; F41.1 Generalized anxiety disorder; F31.9 Bipolar disorder, unspecified; J44.9 Chronic obstructive pulmonary disease, unspecified; G35 Multiple sclerosis; E78.00 Pure hypercholesterolemia, unspecified; E66.9 Obesity, unspecified; Z68.31 Body mass index [BMI] 31.0-31.9, adult; M17.11 Unilateral primary osteoarthritis, right knee; Z79.899 Other long term (current) drug therapy; Z88.8 Allergy status to other drugs, medicaments and biological substances; Z87.891 Personal history of nicotine dependence
CPT/HCPCS: G0121

== ENCOUNTER 2022-11-10 08:23 | Outpatient (REF) | payer MEDICARE, OTHER, SELFPAY | END 2022-11-10 08:24 | disposition home or self-care (01) | LOC: HO.MDS 08:23 | PROVIDERS: Visit Provider Psychiatry & Neurology Neurology | DX: G35 Multiple sclerosis (principal) | CPT/HCPCS: 96365; 96366; J2930 ==

== ENCOUNTER 2022-12-08 07:54 | Outpatient (REF) | payer MEDICARE, OTHER, SELFPAY | END 2022-12-08 07:55 | disposition home or self-care (01) | LOC: HO.MDS 07:54 | PROVIDERS: Visit Provider Psychiatry & Neurology Neurology | DX: G35 Multiple sclerosis (principal) | CPT/HCPCS: 96365; J2930 ==

== ENCOUNTER 2023-01-03 08:37 | Outpatient (REF) | payer MEDICARE, OTHER, SELFPAY | END 2023-01-03 08:38 | disposition home or self-care (01) | LOC: HO.MDS 08:37 | PROVIDERS: Visit Provider Psychiatry & Neurology Neurology | DX: G35 Multiple sclerosis (principal) | CPT/HCPCS: 96365; J2930 ==

== ENCOUNTER 2023-02-05 07:53 | Outpatient (REF) | payer MEDICARE, OTHER, SELFPAY | END 2023-02-05 07:54 | disposition home or self-care (01) | LOC: HO.MDS 07:53 | PROVIDERS: Visit Provider Psychiatry & Neurology Neurology | DX: G35 Multiple sclerosis (principal) | CPT/HCPCS: 96365; 96366; J2930 ==

== ENCOUNTER 2023-02-20 06:42 | Outpatient (REF) | payer MEDICARE, OTHER, SELFPAY ==
[2023-02-20 07:25] LABS: Alanine Aminotransferase 22 U/L (0-31); Albumin Level 4.4 g/dL (3.5-5.0); Alkaline Phosphatase 67 U/L (39-117); Anion Gap 16 (12-20); Aspartate Amino Transferase 22 U/L (5-31); Bilirubin Total 0.2 mg/dL (0.0-1.0); Blood Urea Nitrogen 35 mg/dL (9-16); Calcium 10.1 mg/dL (8.4-10.2); Carbon Dioxide 25 mmol/L (22-29); Chloride 109 mmol/L (96-108); Cholesterol 160 mg/dL (<200); Estimated Glomerular Filt Rate > 60; Glucose Fasting 107 mg/dL (60-99); HDL Cholesterol 53 mg/dL (>40); LDL Cholesterol Calculated 78 mg/dL (<100); Potassium 4.2 mmol/L (3.3-5.1); Sodium 146 mmol/L (135-145); Total Protein 7.1 g/dL (6.5-8.0); Triglycerides 145 mg/dL (<150)
[2023-02-20 07:43] LABS: TSH reflex Free T4 2.02 uIU/mL (0.32-4.0); Vitamin D 25-OH Total 59.9 ng/mL (>30)
== END 2023-02-20 06:43 | disposition home or self-care (01) ==
LOC: HO.LAB 06:42
PROVIDERS: PCP Internal Medicine; Visit Provider Internal Medicine
DX: R30.0 Dysuria (principal); I10 Essential (primary) hypertension; E55.9 Vitamin D deficiency, unspecified; E78.00 Pure hypercholesterolemia, unspecified
CPT/HCPCS: 36415; 80053; 80061; 81003; 82306; 84443; 85025

== ENCOUNTER 2023-02-26 10:24 | Outpatient (AMB) | payer MEDICARE, OTHER, SELFPAY ==
[2023-02-26 10:26] VITALS: BP 126/80; PULSE 72; O2SAT 94; BMI 31.0
--- NOTE | 2023-02-26 10:26 | A.OFFPC_ITS ---
Vital Signs 02/26/23 10:26 Height 5 ft 3 in Weight 175 lb BMI 31.0 BP 126/80 Blood Pressure Location Lt brachial Position Sitting Pulse 72 Pulse Source Pulse Oximeter Pulse Oximetry (%) 94 Oxygen Delivery Method Room Air Intake Visit Reasons: hyperlipidemia, MS, anxiety, depression Grocery Store Associate Required: No Accompanied by: Self / Same As Patient Allergies codeine [Codeine] Adverse Reaction (Mild, Verified 02/26/23 10:58) UPSET STOMACH AND BAD DREAMS Medication List - Last Reconciled 02/26/23 by Sreedhar Patricia MD albuterol sulfate 90 mcg/actuation 2 puffs inhalation Q4-6H PRN aripiprazole (Abilify) 30 mg PO DAILY carisoprodol 350 mg PO TID gabapentin 600 mg PO TID lorazepam 0.5 mg PO BID PRN mirtazapine 45 mg PO BEDTIME montelukast 10 mg PO DAILY pramipexole 0.5 mg PO BEDTIME rosuvastatin 10 mg PO BEDTIME 90 days [solu medrol IV IV .once a month] vortioxetine (Trintellix) 20 mg PO DAILY Tobacco use date assessed: 02/26/23 Fall risk assessment: No Falls in past year Last assessed Fall Risk: 02/26/23 Dental Screening Dental Screen Date: 02/26/23 Did you have a dental visit in the last 12 months?: Yes Did you have a dental problem in the last 6 months where you did not have access to dental care?: No Was dental information given to patient?: Patient has dentist HPI hyperlipidemia, MS, anxiety, depression HPI Details Patient comes in today for her follow up visit States that she feels okay but is concerned about her toenails - was told by her bench scientist a couple of weeks ago that some of her toenails are turning black and that she should get them checked out Patient states that she does not have any pain or discomfort in her toes or toenails She denies any headaches or dizziness Denies any chest pains, no increased SOB although she's had to use her Albuterol inhaler more often lately and needs it refilled States that she usually starts to experience recurrent chest tightness when the weather starts turning cooler around this time of the year but otherwise has not had to use her inhaler at all for long periods of time No nausea/vomiting, no abdominal pain No change in bowel habits noted She is still getting her IV Solumedrol once a month for her MS Had her follow up labs done last week - to discuss her results Would also like to get her flu shot today [facility] Medical History Restless leg syndrome Anemia Obesity (BMI 30-39.9) Primary osteoarthritis of right knee Anxiety Bipolar depression Irritable bowel syndrome (IBS) Multiple sclerosis Chronic obstructive pulmonary disease (COPD) Normal colonoscopy Pure hypercholesterolemia Surgical History Hx of colonoscopy Hx of arthroscopic knee surgery History of tubal ligation H/O knee surgery History of back surgery Family History Mother Lung cancer, Onset Age: 56 Father Heart problem Social History Housing: Apartment Are you a primary field care coordinator to a significant other at home: No Do you presently have visiting nurse or other home services: No Alcohol intake: never Patient Tobacco Use Status: Former Tobacco user Quit Date: 5 yrs ago Tobacco use type: Cigarette e-Cigarette/Vaping Use: Never Used Second Hand Smoke Exposure: No service: No Current occupational status: retired 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 Cognitive needs: No Hearing needs: No Vision needs: Yes Questionnaire PHQ-9 Over the last 2 weeks, how often have you been bothered by any of the following problems? 1. Little interest or pleasure in doing things: not at all 2. Feeling down, depressed, or hopeless: not at all 3. Trouble falling or staying asleep, or sleeping too much: more than half the days 4. Feeling tired or having little energy: not at all 5. Poor appetite or overeating: nearly every day 6. Feeling bad about yourself - or that you are a failure or have let yourself or your family down: not at all 7. Trouble concentrating on things, such as reading the newspaper or watching television: not at all 8. Moving or speaking so slowly that other people could have noticed. Or the opposite - being so fidgety or restless that you have been moving around a lot more than usual: not at all 9. Thoughts that you would be better off or of hurting yourself in some way : not at all Total score: 5 Depression Screening Interpretation: Positive Depression Screening Follow-up: Existing condition and In treatment (sees psychiatry for follow up) Depression Screening Done: Yes 25796 - PHQ-9 Billing: Yes Source: Developed by Drs. Harris Mcleod, Rakel Leggett, Neel Hawthorne and colleagues, with an educational bill from [employer]. Thrive Questionnaire Date Thrive assessed: 02/26/23 I am a: Patient What is your living situation today?: I have a steady place to live Within the past 12 months, did the food you bought not last and you didn't have the money to get more?: Never true Within the past 12 months, did you worry whether your food would run out before you got money to buy more?: Never true Do you have trouble paying for medicines?: No Do you have trouble getting transportation to medical appointments?: No Do you have trouble paying your heating and electricity bill?: No Do you have trouble taking care of your child, family member or friend?: No Do you have trouble with day-to-day activities such as bathing, preparing meals, shopping, managing finances, etc.?: No Are you currently unemployed and looking for a job?: No Are you interested in more education?: No Please select the resources that you would like help with: None Currently or been in a relationship where the following occur: no concerns reported AUDIT C Alcohol Use Questionnaire (AUDIT-C) 1. How often do you have a drink containing alcohol?: Never 3. How often do you have six or more drinks on one occasion?: Never Total Score: 0 Score Reviewed/Action Taken: Yes ANDREINA-7 AMB Questionnaire ANDREINA-7 Date ANDREINA - 7 assessed: 02/26/23 Feeling nervous, anxious, or on edge: 2 = More than half the days Not being able to stop or control worryin = Several days Worrying too much about different things: 1 = Several days Trouble relaxin = Nearly every day Being so restless that it is hard to sit still: 0 = Not at all Becoming easily annoyed or irritable: 0 = Not at all Feeling afraid as if something awful might happen: 3 = Nearly every day Total ANDREINA-7 score (0-4 normal; 5-9 mild; 10-14 moderate; 15-21 severe): 10 Source: Developed by Drs. Harris Mcleod, Rakel Leggett, Neel Hawthorne and colleagues, with an educational bill from [employer]. Review of Systems Const Denies fatigue, Denies fever(s), Denies headache(s) and Reports weakness (at times from her MS) ENT Denies dysphagia, Denies dizziness, Denies otalgia, Denies headache(s), Denies odynophagia and Denies sore throat Card Denies chest pain, Denies rapid heart rate, Denies palpitations and Reports dyspnea on exertion (at times lately - mostly due to the cooler weather (see HPI)) Resp Denies chest congestion, Denies cough and Reports dyspnea on exertion (at times lately - mostly due to the cooler weather (see HPI)) GI Denies abdominal pain, Denies constipation, Denies dysphagia, Denies heartburn, Denies diarrhea, Denies nausea, Denies odynophagia and Denies vomiting Denies hematuria, Denies dysuria, Denies urinary incontinence and Denies urinary urgency Musc Reports back pain (occasionally - due to her MS) Skin/Breast Denies rash Neuro Denies dizziness, Denies headache(s) and Reports weakness (at times from her MS) Endo Denies fatigue and Denies palpitations Physical exam (Primary Care) Vital Signs: Last Vital Signs Pulse 72 02/26/23 10:26 BP 126/80 02/26/23 10:26 Pulse Ox 94 02/26/23 10:26 Oxygen Delivery Method Room Air 02/26/23 10:26 BMI result Body Mass Index 31.0 Tobacco/Smoking Status: Tobacco use Status Tobacco use date assessed 02/26/23 02/26/23 10:28 Patient Tobacco Use Status Former Tobacco user 02/26/23 10:28 Tobacco use type Cigarette 02/26/23 10:28 e-Cigarette/Vaping Use Never Used 02/26/23 10:28 PHQ-9: PHQ-9 Score PHQ-9: Total score 5 02/26/23 10:46 Depression Screening Interpretation: Positive Depression Screening Follow-up: Existing condition and In treatment (sees psychiatry for follow up) Thrive Assessment: Date of Thrive Assessment Date Thrive assessed 02/26/23 02/26/23 10:34 Currently or been in a relationship where the following occur: no concerns reported Const General: no acute distress and alert HENMT Ears: TM's normal bilaterally and EAC's normal Throat: Yes posterior oropharynx normal and Yes tonsils normal (no TP congestion noted) Neck Neck: Yes no lymphadenopathy and Yes supple Resp Auscultation: clear to auscultation bilaterally, no rales and no wheezes Cardio Rate: regular rate Rhythm: regular rhythm Heart sounds: no murmurs GI Palpation (GI): Soft to palpation and nontender Auscultation: normal bowel sounds Back/Spine/Pelvis Thoracic/Lumbar Spine: No lumbar spinal tenderness Skin Rashes: no rashes Extrem Other: (+) significantly thickened and disfigured toenails on several toes of both feet; there are a few toenails that have dark (almost black) discoloration noted General: Yes no clubbing, cyanosis or edema Right lower extremity: knee Details: tenderness (mild) and normal ROM; no swelling Office Procedures Flu Questionnaire Does the patient have a severe egg allergy?: No Does the patient have severe life threatening allergies?: No Does the patient have a fever or illness today?: No Has the patient ever had Guillain-Ames Syndrome?: No Has the patient ever had any past reaction to a flu shot?: No Immunizations flu vacc [id number] 6mos up(PF) 60 mcg(15 mcgx4)/0.5 mL IM syringe Performing Provider: Sreedhar Patricia MD Performing Location: [facility] Administered by: Patricia Alonso on 02/26/23 10:46 Dose Route Admin Location Dispensed Lot Number Expiration Date [employer] 0.5 mL IM Left Deltoid 0.5 mL [id number] 11/11/23 31108-485-15 [employer] Newsletter VIS Given Date VIS Provided VIS Publication Date 02/26/23 Single Vaccine 20 Eligibility Eligibility Date Funding Source Not [facility] Eligible 02/26/23 Private Results Reviewed Results Reviewed: Laboratory Tests 02/20/23 02/20/23 06:53 07:00 WBC 6.0 Hgb 13.7 Hct 43.9 Plt Count 177 Sodium 146 H Potassium 4.2 Creatinine 0.78 Estimated GFR > 60 Fasting Glucose 107 H Calcium 10.1 AST 22 ALT 22 Triglycerides 145 Cholesterol 160 LDL Cholesterol, Calc 78 HDL Cholesterol 53 25-OH Vitamin D Total 59.9 TSH 2.02 Ur Specific [place] 1.025 Urine Protein Negative Urine Glucose (UA) Negative Urine Blood Negative Assessment and Plan Assessment & Plan (1) Pure hypercholesterolemia: Code(s): E78.00 - Pure hypercholesterolemia, unspecified Plan: Results of her labs done last week reviewed and discussed with patient Reinforced low cholesterol diet Continue Rosuvastatin 10 mg QD Will recheck her labs and fasting lipids in 4 months for follow up (2) Multiple sclerosis: Code(s): G35 - Multiple sclerosis Plan: Continue Carisoprodol 350 mg TID and Gabapentin 600 mg TID Is also still getting IV Solumedrol monthly for her MS Follow up with neurology as scheduled - MS has been stable from neurology standpoint (3) Chronic obstructive pulmonary disease (COPD): Comment: (+) interstitial fibrosis of the lungs Code(s): J44.9 - Chronic obstructive pulmonary disease, unspecified Qualifiers: COPD type: unspecified COPD Qualified Code(s): J44.9 - Chronic obstructive pulmonary disease, unspecified Plan: Stable - follow up with pulmonary as scheduled Continue Albuterol HFA 1 to 2 inhalations Q 6 hours PRN - Rx refilled (4) Primary osteoarthritis of right knee: Comment: S/P total right knee arthroplasty on 06/21/2021 Code(s): M17.11 - Unilateral primary osteoarthritis, right knee Plan: S/P total right knee arthroplasty on 06/21/[address] Rodarte States that she has been doing well since; S/P physical therapy - states PT has also helped a lot Continue Tramadol 50 mg - takes only PRN for pain Follow up with orthopedics as scheduled (5) Anemia: Code(s): D64.9 - Anemia, unspecified Qualifiers: Anemia type: unspecified type Qualified Code(s): D64.9 - Anemia, unspecified Plan: RESOLVED; patient's H/H remain normal on her recent labs Was most likely due to intraop and postop bleeding last year Patient is currently clinically asymptomatic; will continue to monitor her CBC periodically (6) Onychomycosis of toenail: Code(s): B35.1 - Tinea unguium Plan: Is advised that her toenails changes and discoloration are mostly due to onychomycosis Will refer to podiatry for further evaluation and management (7) Restless leg syndrome: Code(s): G25.81 - Restless legs syndrome Plan: Continue Pramipexole 0.5 mg Q HS (8) Irritable bowel syndrome (IBS): Code(s): K58.9 - Irritable bowel syndrome without diarrhea Qualifiers: Irritable bowel syndrome type: unspecified Qualified Code(s): K58.9 - Irritable bowel syndrome without diarrhea Plan: Reports NO acute flare ups recently Follow up with GI as scheduled (9) Anxiety: Code(s): F41.9 - Anxiety disorder, unspecified Plan: Continue Lorazepam 0.5 mg BID PRN (Lorazepam dosage has been lowered from her previous 2 mg by psychiatry) (10) Bipolar depression: Code(s): F31.9 - Bipolar disorder, unspecified Plan: Continue Aripiprazole 30 mg QD, Mirtazapine 45 mg Q HS and Trintellix 20 mg QD (was previously on Buspirone and Escitalopram) Follow up with psychiatry as scheduled (11) Obesity (BMI 30-39.9): Code(s): E66.9 - Obesity, unspecified Plan: Reinforced diet/exercise as tolerated/lose weight Plan Flu vaccine given today Follow up in 4 months Orders: Orders Comprehensive [place]. Panel Fast 4 Months E78.00 - Pure hypercholesterolemia, unspecified UA CC w/rflx Micro + Cult 4 Months R30.0 - Dysuria Erythrocyte Sedimentation Rate 4 Months G35 - Multiple sclerosis Influenza [id number] Immunization Today Z23 - Encounter for immunization Lipid Panel 4 Months E78.00 - Pure hypercholesterolemia, unspecified Complete Blood Count Auto Diff 4 Months I10 - Essential (primary) hypertension TSH reflex Free T4 4 Months E78.00 - Pure hypercholesterolemia, unspecified Vitamin D 25-OH Total 4 Months E55.9 - Vitamin D deficiency, unspecified Referrals Podiatry Referral B35.1 - Tinea unguium Medications: New albuterol sulfate 90 mcg/actuation 2 puffs inhalation Q4-6H PRN 8.5 grams 5RF shortness of breath or wheezing Coding Level of Care Code Est Pt Level 4 (68286) Diagnoses Pure hypercholesterolemia E78.00 Multiple sclerosis G35 Chronic obstructive pulmonary disease, unspecified COPD type J44.9 COPD type: unspecified COPD Primary osteoarthritis of right knee M17.11 Anemia, unspecified type D64.9 Anemia type: unspecified type Onychomycosis of toenail B35.1 Restless leg syndrome G25.81 Irritable bowel syndrome, unspecified type K58.9 Irritable bowel syndrome type: unspecified Anxiety F41.9 Bipolar depression F31.9 Obesity (BMI 30-39.9) E66.9
== END 2023-02-26 11:10 | disposition home or self-care (01) ==
PROVIDERS: PCP Internal Medicine; Visit Provider Internal Medicine
DX: J44.9 Chronic obstructive pulmonary disease, unspecified (principal); G35 Multiple sclerosis; F31.9 Bipolar disorder, unspecified; E78.00 Pure hypercholesterolemia, unspecified; Z23 Encounter for immunization; M17.11 Unilateral primary osteoarthritis, right knee; D64.9 Anemia, unspecified; B35.1 Tinea unguium; G25.81 Restless legs syndrome; K58.9 Irritable bowel syndrome, unspecified; F41.9 Anxiety disorder, unspecified; E66.9 Obesity, unspecified
CPT/HCPCS: 90471; 90686; 99214

== ENCOUNTER 2023-03-05 07:46 | Outpatient (REF) | payer MEDICARE, OTHER, SELFPAY | END 2023-03-05 07:47 | disposition home or self-care (01) | LOC: HO.MDS 07:46 | PROVIDERS: Visit Provider Psychiatry & Neurology Neurology | DX: G35 Multiple sclerosis (principal) | CPT/HCPCS: 96365; J2930 ==

== ENCOUNTER 2023-04-02 07:41 | Outpatient (REF) | payer MEDICARE, OTHER, SELFPAY | END 2023-04-02 07:42 | disposition home or self-care (01) | LOC: HO.MDS 07:41 | PROVIDERS: Visit Provider Psychiatry & Neurology Neurology | DX: G35 Multiple sclerosis (principal) | CPT/HCPCS: 96365; J2930 ==

== ENCOUNTER 2023-04-30 07:45 | Outpatient (REF) | payer MEDICARE, OTHER, SELFPAY | END 2023-04-30 07:46 | disposition home or self-care (01) | LOC: HO.MDS 07:45 | PROVIDERS: PCP Internal Medicine; Visit Provider Psychiatry & Neurology Neurology | DX: G35 Multiple sclerosis (principal) | CPT/HCPCS: 96365; J2930 ==

== ENCOUNTER 2023-05-28 07:46 | Outpatient (REF) | payer MEDICARE, OTHER, SELFPAY | END 2023-05-28 07:47 | disposition home or self-care (01) | LOC: HO.MDS 07:46 | PROVIDERS: Visit Provider Psychiatry & Neurology Neurology | DX: G35 Multiple sclerosis (principal) | CPT/HCPCS: 96365; J2930 ==

== ENCOUNTER 2023-06-23 07:06 | Outpatient (REF) | payer MEDICARE, OTHER, SELFPAY ==
[2023-06-23 07:37] LABS: MANUAL DIFF FLAG NO
[2023-06-23 08:23] LABS: Basophils Percent Auto 0.3 % (0-2); Eosinophils Absolute Auto 0.1 X10*3/uL (0.0-0.4); Eosinophils Percent Auto 0.7 % (0-4); Hematocrit 39.3 % (37.0-47.0); Hemoglobin 12.6 g/dl (12.0-16.0); Imm Gran Abs Auto 0.04 X10*3/uL (0.00-0.03); Imm Gran Pct Auto 0.3 % (0.0-0.4); Lymphocytes Absolute Auto 1.1 X10*3/uL (1.2-4.9); Lymphocytes Percent Auto 9.5 % (20-40); Mean Corpuscular HGB Conc 32.1 g/dl (31.0-35.0); Mean Corpuscular Hemoglobin 27.5 pg (27.0-33.0); Mean Corpuscular Volume 85.6 fL (80.0-98.0); Mean Platelet Volume 11.4 fL (9.4-12.3); Monocytes Absolute Auto 0.6 X10*3/uL (0.1-1.2); Monocytes Percent Auto 5.4 % (2-11); Neutrophils Absolute Auto 9.6 x10*3/uL (2.0-8.3); Neutrophils Percent Auto 83.8 % (45-73); Platelet Count 251 X10*3/uL (160-400); Red Blood Count 4.59 X10*6/uL (4.20-5.50); Red Cell Distribution Width 13.6 % (11.0-16.0); White Blood Count 11.5 X10*3/uL (4.8-10.8)
[2023-06-23 08:55] LABS: Alanine Aminotransferase 12 U/L (0-31); Albumin Level 3.9 g/dL (3.5-5.0); Alkaline Phosphatase 72 U/L (39-117); Anion Gap 16 (12-20); Aspartate Amino Transferase 14 U/L (5-31); Bilirubin Total 0.3 mg/dL (0.0-1.0); Blood Urea Nitrogen 22 mg/dL (9-16); Calcium 9.7 mg/dL (8.4-10.2); Carbon Dioxide 27 mmol/L (22-29); Chloride 105 mmol/L (96-108); Cholesterol 91 mg/dL (<200); Estimated Glomerular Filt Rate > 60; Glucose Fasting 119 mg/dL (60-99); HDL Cholesterol 32 mg/dL (>40); LDL Cholesterol Calculated 42 mg/dL (<100); Potassium 3.1 mmol/L (3.3-5.1); Sodium 145 mmol/L (135-145); Total Protein 6.9 g/dL (6.5-8.0); Triglycerides 85 mg/dL (<150)
[2023-06-23 08:56] LABS: Alanine Aminotransferase 13 U/L (0-31); Albumin Level 3.8 g/dL (3.5-5.0); Alkaline Phosphatase 74 U/L (39-117); Aspartate Amino Transferase 16 U/L (5-31); Bilirubin Direct 0.2 mg/dL (0.0-0.5); Bilirubin Total 0.3 mg/dL (0.0-1.0); Total Protein 6.9 g/dL (6.5-8.0)
[2023-06-23 09:01] LABS: Erythrocyte Sedimentation Rate 59 MM/HR (0-20)
[2023-06-23 09:15] LABS: TSH reflex Free T4 0.61 uIU/mL (0.32-4.0); Vitamin D 25-OH Total 39.6 ng/mL (>30)
[2023-06-23 09:34] LABS: Appearance Urine Clear; Color Urine Yellow; Glucose Urine UA Negative (Negative); Leukocyte Esterase Urine Negative (Negative); Nitrite Urine Negative (Negative); UMIC TRIGGER UACC YES; Urine Blood Small (1+) (Negative); Urine Ketones Trace mg/dL (Negative); Urine Protein Trace mg/dL (Neg-Trace)
[2023-06-23 10:09] LABS: Squamous Epithelial Cell Urine 0-2 /HPF (0-2); WBC Urine 0-5 /HPF (0-5)
[2023-06-23 10:10] LABS: Bacteria Urine None Seen (None Seen); Hyaline Casts Urine 0-2 /LPF (0-2)
== END 2023-06-23 07:07 | disposition home or self-care (01) ==
LOC: HO.LAB 07:06
PROVIDERS: PCP Internal Medicine; Visit Provider Podiatrist
DX: E78.00 Pure hypercholesterolemia, unspecified (principal); G35 Multiple sclerosis; I10 Essential (primary) hypertension; E55.9 Vitamin D deficiency, unspecified; B35.1 Tinea unguium; R30.0 Dysuria
CPT/HCPCS: 36415; 80053; 80061; 80076; 81001; 82248; 82306; 84443; 85025; 85652

== ENCOUNTER 2023-06-25 07:50 | Outpatient (REF) | payer MEDICARE, OTHER, SELFPAY | END 2023-06-25 07:51 | disposition home or self-care (01) | LOC: HO.MDS 07:50 | PROVIDERS: Visit Provider Psychiatry & Neurology Neurology | DX: G35 Multiple sclerosis (principal) | CPT/HCPCS: 96365; J2930 ==

== ENCOUNTER 2023-07-02 08:57 | Outpatient (AMB) | payer MEDICARE, OTHER, SELFPAY ==
[2023-07-02 09:13] VITALS: BP 126/80; PULSE 67; O2SAT 94; BMI 28.9
--- NOTE | 2023-07-02 09:13 | MHC.PC.OV ---
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 Accompanied by: Self / Same As Patient Allergies codeine [Codeine] Adverse Reaction (Mild, Verified 07/02/23 09:27) UPSET STOMACH AND BAD DREAMS Medication List - Last Reconciled 07/02/23 by Sreedhar Patricia MD albuterol sulfate 90 mcg/actuation 2 puffs inhalation Q4-6H PRN aripiprazole (Abilify) 30 mg PO DAILY carisoprodol 350 mg PO TID gabapentin 600 mg PO TID lorazepam 0.5 mg PO BID PRN mirtazapine 45 mg PO BEDTIME montelukast 10 mg PO DAILY pramipexole 0.5 mg PO BEDTIME rosuvastatin 10 mg PO BEDTIME 90 days [solu medrol IV IV .once a month] terbinafine HCl 250 mg PO DAILY vortioxetine (Trintellix) 20 mg PO DAILY Tobacco use date assessed: 07/02/23 Fall risk assessment: No Falls in past year Last assessed Fall Risk: 07/02/23 Dental Screening Dental Screen Date: 07/02/23 Did you have a dental visit in the last 12 months?: No Did you have a dental problem in the last 6 months where you did not have access to dental care?: No Was dental information given to patient?: Patient has dentist HPI MS, hyperlipidemia HPI Details Patient comes in today for her follow up visit States that she has been experiencing on and off nausea and vomiting, recurrent upper abdominal pain and occasional bloating for the past 2 to 3 weeks now States that she has not been able to eat much and has not had any appetite for the past few weeks - has lost at least 10 pounds lately as a result Relates (+) diarrhea at times but has not noticed any blood in her stool States that her abdominal symptoms do not seem to be aggravated or relieved by oral intake; has not needed to wake up in the middle of the night from her symptoms Relates (+) fatigue but denies any fever or chills She denies any headaches or dizziness Denies any chest pains, no increased SOB Still still gets IV Solumedrol infusion once a month from neurology for her MS - feels that her MS has remained stable States that she was also started on oral Terbinafine by podiatry for her toenail fungus and she just started taking this a couple of days ago Had her follow up labs done last week - to discuss her results [facility] Medical History Restless leg syndrome Anemia Obesity (BMI 30-39.9) Primary osteoarthritis of right knee Anxiety Bipolar depression Irritable bowel syndrome (IBS) Multiple sclerosis Chronic obstructive pulmonary disease (COPD) Normal colonoscopy Pure hypercholesterolemia Surgical History Hx of colonoscopy Hx of arthroscopic knee surgery History of tubal ligation H/O knee surgery History of back surgery Family History Mother Lung cancer, Onset Age: 56 Father Heart problem Social History Housing: Apartment Are you a primary patient care provider to a significant other at home: No Do you presently have visiting nurse or other home services: No Alcohol intake: never Patient Tobacco Use Status: Former Tobacco user Quit Date: 5 yrs ago Tobacco use type: Cigarette e-Cigarette/Vaping Use: Never Used Second Hand Smoke Exposure: No service: No Current occupational status: retired 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 Cognitive needs: No Hearing needs: No Vision needs: Yes Questionnaire PHQ-9 Over the last 2 weeks, how often have you been bothered by any of the following problems? 1. Little interest or pleasure in doing things: not at all 2. Feeling down, depressed, or hopeless: not at all 3. Trouble falling or staying asleep, or sleeping too much: more than half the days 4. Feeling tired or having little energy: not at all 5. Poor appetite or overeating: nearly every day 6. Feeling bad about yourself - or that you are a failure or have let yourself or your family down: not at all 7. Trouble concentrating on things, such as reading the newspaper or watching television: not at all 8. Moving or speaking so slowly that other people could have noticed. Or the opposite - being so fidgety or restless that you have been moving around a lot more than usual: not at all 9. Thoughts that you would be better off or of hurting yourself in some way: not at all Total score: 5 Depression Screening Interpretation: Positive Depression Screening Follow-up: Existing condition and In treatment (sees psychiatry for follow up) Depression Screening Done: Yes 10364 - PHQ-9 Billing: Yes Source: Developed by Drs. Harris Mcleod, Rakel Leggett, Neel Hawthorne and colleagues, with an educational bill from [employer]. Thrive Questionnaire Date Thrive assessed: 07/02/23 I am a: Patient What is your living situation today?: I have a steady place to live Within the past 12 months, did the food you bought not last and you didn't have the money to get more?: Never true Within the past 12 months, did you worry whether your food would run out before you got money to buy more?: Never true Do you have trouble paying for medicines?: No Do you have trouble getting transportation to medical appointments?: No Do you have trouble paying your heating and electricity bill?: No Do you have trouble taking care of your child, family member or friend?: No Do you have trouble with day-to-day activities such as bathing, preparing meals, shopping, managing finances, etc.?: No Are you currently unemployed and looking for a job?: No Are you interested in more education?: No Please select the resources that you would like help with: None Currently or been in a relationship where the following occur: no concerns reported THRIVE Score: 0 AUDIT C Alcohol Use Questionnaire (AUDIT-C) 1. How often do you have a drink containing alcohol?: Never 3. How often do you have six or more drinks on one occasion?: Never Total Score: 0 Score Reviewed/Action Taken: Yes ANDREINA-7 AMB Questionnaire ANDREINA-7 Date ANDREINA - 7 assessed: 07/02/23 Feeling nervous, anxious, or on edge: 2 = More than half the days Not being able to stop or control worryin = Several days Worrying too much about different things: 1 = Several days Trouble relaxin = Nearly every day Being so restless that it is hard to sit still: 0 = Not at all Becoming easily annoyed or irritable: 0 = Not at all Feeling afraid as if something awful might happen: 3 = Nearly every day Total ANDREINA-7 score (0-4 normal; 5-9 mild; 10-14 moderate; 15-21 severe): 10 Source: Developed by Drs. Harris Mcleod, Rakel Leggett, Neel Hawthorne and colleagues, with an educational bill from [employer]. Review of Systems Const Denies chills, Reports fatigue, Denies fever(s), Denies headache(s), Reports poor appetite, Reports weakness (at times, from her MS) and Reports weight loss ENT Denies dysphagia, Denies dizziness, Denies otalgia, Denies headache(s), Denies neck pain, Denies odynophagia and Denies sore throat Card Denies chest pain, Denies rapid heart rate, Denies palpitations and Reports dyspnea on exertion (at times lately - mostly due to the cooler weather) Resp Denies chest congestion, Denies cough and Reports dyspnea on exertion (at times lately - mostly due to the cooler weather) GI Reports abdominal pain (recurrent, over the upper/epigastric area of the abdomen), Reports bloating, Denies hematochezia, Denies constipation, Denies dysphagia, Denies heartburn, Reports diarrhea (occasional), Reports nausea (on and off), Denies odynophagia and Reports vomiting (on and off) Denies hematuria, Denies dysuria, Denies urinary incontinence and Denies urinary urgency Musc Reports back pain (occasionally - due to her MS) and Denies neck pain Skin/Breast Denies rash Neuro Denies dizziness, Denies headache(s) and Reports weakness (at times, from her MS) Endo Reports fatigue and Denies palpitations Physical exam (Primary Care) Vital Signs: Last Vital Signs Pulse 67 07/02/23 09:13 BP 126/80 07/02/23 09:13 Pulse Ox 94 07/02/23 09:13 Oxygen Delivery Method Room Air 07/02/23 09:13 BMI result Body Mass Index 28.9 Tobacco/Smoking Status: Tobacco use Status Tobacco use date assessed 07/02/23 07/02/23 09:20 Patient Tobacco Use Status Former Tobacco user 07/02/23 09:20 Tobacco use type Cigarette 07/02/23 09:20 e-Cigarette/Vaping Use Never Used 07/02/23 09:20 PHQ-9: PHQ-9 Score PHQ-9: Total score 5 07/02/23 09:35 Depression Screening Interpretation: Positive Depression Screening Follow-up: Existing condition and In treatment (sees psychiatry for follow up) Thrive Assessment: Date of Thrive Assessment Date Thrive assessed 07/02/23 07/02/23 09:20 Currently or been in a relationship where the following occur: no concerns reported Const General: no acute distress and alert HENMT Ears: TM's normal bilaterally and EAC's normal Throat: Yes posterior oropharynx normal and Yes tonsils normal (no TP congestion noted) Neck Neck: Yes no lymphadenopathy and Yes supple Thyroid: Thyroid normal Resp Auscultation: clear to auscultation bilaterally, no rales and no wheezes Cardio Rate: regular rate Rhythm: regular rhythm Heart sounds: no murmurs GI Palpation (GI): Soft to palpation, Tenderness to palpation present (GI) (mild, over the epigastric area and upper abdominal area), no guarding, not rigid and No Rebound tenderness present Auscultation: normal bowel sounds General: Yes no CVA tenderness Back/Spine/Pelvis Back: no CVA tenderness Thoracic/Lumbar Spine: No lumbar spinal tenderness Skin Rashes: no rashes Extrem General: Yes no clubbing, cyanosis or edema Right lower extremity: knee Details: tenderness (mild) and normal ROM; no swelling Results AMB Hemoglobin A1c AMB Hemoglobin A1c 5.9 % Last Edit by Patricia Alonso on 07/02/23 09:38 Results Reviewed Results Reviewed: Laboratory Tests 06/23/23 06/23/23 06/23/23 07:30 07:30 07:36 WBC 11.5 H Hgb 12.6 Hct 39.3 Plt Count 251 D Sodium Potassium Creatinine 0.77 Estimated GFR > 60 Fasting Glucose 119 H Calcium 9.7 AST 16 ALT 13 Triglycerides 85 Cholesterol 91 LDL Cholesterol, Calc 42 HDL Cholesterol 32 L 25-OH Vitamin D Total 39.6 TSH 0.61 Ur Specific [place] 1.010 Urine Protein Trace Urine Glucose (UA) Negative Urine Blood Small (1+) H Urine Nitrite Negative Ur Leukocyte Esterase Negative 06/23/23 07:36 WBC Hgb Hct Plt Count Sodium 145 Potassium 3.1 L Creatinine Estimated GFR Fasting Glucose Calcium AST ALT Triglycerides Cholesterol LDL Cholesterol, Calc HDL Cholesterol 25-OH Vitamin D Total TSH Ur Specific [place] Urine Protein Urine Glucose (UA) Urine Blood Urine Nitrite Ur Leukocyte Esterase Assessment and Plan Assessment & Plan (1) Abdominal pain: Code(s): R10.9 - Unspecified abdominal pain Qualifiers: Abdominal location: epigastric Qualified Code(s): R10.13 - Epigastric pain Plan: Will send patient for abdominal US TRACY for further evaluation Discussed possible etiologies for her recent symptoms, including GB disease/stones and gastritis; will also need to consider her IBS (flare up) as a possible reason for her symptoms Patient is advised that we will check back with her as soon as we have the results of her sonogram and further recommendations will depend on how her results come out Advised to avoid anything greasy or fried and stay more on a clear to light diet for now to avoid aggravating her symptoms (2) Irritable bowel syndrome (IBS): Code(s): K58.9 - Irritable bowel syndrome without diarrhea Qualifiers: Irritable bowel syndrome type: unspecified Qualified Code(s): K58.9 - Irritable bowel syndrome without diarrhea Plan: Follow up with GI as scheduled (3) Pure hypercholesterolemia: Code(s): E78.00 - Pure hypercholesterolemia, unspecified Plan: Results of her labs done last week reviewed and discussed with patient Reinforced low cholesterol diet Continue Rosuvastatin 10 mg QD Will recheck her labs and fasting lipids in 4 months for follow up (4) Multiple sclerosis: Code(s): G35 - Multiple sclerosis Plan: Continue Carisoprodol 350 mg TID and Gabapentin 600 mg TID Is also still getting IV Solumedrol monthly for her MS Follow up with neurology as scheduled - MS has been stable from neurology standpoint (5) Chronic obstructive pulmonary disease (COPD): Comment: (+) interstitial fibrosis of the lungs Code(s): J44.9 - Chronic obstructive pulmonary disease, unspecified Qualifiers: COPD type: unspecified COPD Qualified Code(s): J44.9 - Chronic obstructive pulmonary disease, unspecified Plan: Stable - follow up with pulmonary as scheduled Continue Albuterol HFA 1 to 2 inhalations Q 6 hours PRN (6) Impaired fasting glucose: Code(s): R73.01 - Impaired fasting glucose Plan: Her FBS has been noted to be slightly elevated on her most recent labs over the past year In-office HgbA1c done today is at 5.9% - patient is advised that this classifies her as early borderline diabetes Discussed that this may also be affected in part, by her monthly IV Solumedrol infusions; have advised her also to try to stay on a low calorie/low carb diet to help address this but if her HgbA1c continues to go up or progress, then we may need to start her on some Rx for her blood sugar in the future Will recheck her FBS and HgbA1c in 4 months for follow up (7) Primary osteoarthritis of right knee: Comment: S/P total right knee arthroplasty on 06/21/2021 Code(s): M17.11 - Unilateral primary osteoarthritis, right knee Plan: S/P total right knee arthroplasty on 06/21/[address] Rodarte States that she has been doing well since; S/P physical therapy, which patient stateshas also helped a lot Continue Tramadol 50 mg - takes only PRN for pain Follow up with orthopedics as scheduled (8) Anemia: Code(s): D64.9 - Anemia, unspecified Qualifiers: Anemia type: unspecified type Qualified Code(s): D64.9 - Anemia, unspecified Plan: RESOLVED; patient's H/H remain normal on her recent labs Was most likely due to intraop and postop bleeding during her orthopedic surgery Patient is currently clinically asymptomatic; will continue to monitor her CBC periodically (9) Onychomycosis of toenail: Code(s): B35.1 - Tinea unguium Plan: States that she was seen by podiatry and had her toenails trimmed and cleaned out She was also started on Terbinafine 250 mg QD - we anticipate that she will be on this for at least 3 months and will help keep an eye on her LFTs while she is on this Rx Follow up with podiatry as scheduled (10) Restless leg syndrome: Code(s): G25.81 - Restless legs syndrome Plan: Continue Pramipexole 0.5 mg Q HS (11) Anxiety: Code(s): F41.9 - Anxiety disorder, unspecified Plan: Continue Lorazepam 0.5 mg BID PRN (Lorazepam dosage has been lowered from her previous 2 mg by psychiatry) (12) Bipolar depression: Code(s): F31.9 - Bipolar disorder, unspecified Plan: Continue Aripiprazole 30 mg QD, Mirtazapine 45 mg Q HS and Trintellix 20 mg QD (was previously on Buspirone and Escitalopram) Follow up with psychiatry as scheduled (13) Overweight (BMI 25.0-29.9): Code(s): E66.3 - Overweight Plan: Reinforced diet/exercise as tolerated/lose weight - patient has lost a lot of weight lately, likely due to her GI symptoms Plan Follow up in 4 months Orders: Orders AMB Hemoglobin A1c Today Z13.9 - Encounter for screening, unspecified US abdomen complete Today R10.9 - Unspecified abdominal pain Complete Blood Count Auto Diff 4 Months D64.9 - Anemia, unspecified Lipid Panel 4 Months E78.00 - Pure hypercholesterolemia, unspecified Hemoglobin A1c 4 Months R73.01 - Impaired fasting glucose Vitamin D 25-OH Total 4 Months E55.9 - Vitamin D deficiency, unspecified Comprehensive Salters. Panel Fast 4 Months E78.00 - Pure hypercholesterolemia, unspecified TSH reflex Free T4 4 Months E78.00 - Pure hypercholesterolemia, unspecified UA CC w/rflx Micro + Cult 4 Months R30.0 - Dysuria Coding Level of Care Code Est Pt Level 4 (13497) Diagnoses Epigastric pain R10.13 Abdominal location: epigastric Irritable bowel syndrome, unspecified type K58.9 Irritable bowel syndrome type: unspecified Pure hypercholesterolemia E78.00 Multiple sclerosis G35 Chronic obstructive pulmonary disease, unspecified COPD type J44.9 COPD type: unspecified COPD Impaired fasting glucose R73.01 Primary osteoarthritis of right knee M17.11 Anemia, unspecified type D64.9 Anemia type: unspecified type Onychomycosis of toenail B35.1 Restless leg syndrome G25.81 Anxiety F41.9 Bipolar depression F31.9 Overweight (BMI 25.0-29.9) E66.3
== END 2023-07-02 09:51 | disposition home or self-care (01) ==
PROVIDERS: PCP Internal Medicine; Visit Provider Internal Medicine
DX: R73.01 Impaired fasting glucose (principal)
CPT/HCPCS: 83036; 99214

== ENCOUNTER 2023-07-19 08:16 | Outpatient (REF) | payer MEDICARE, OTHER, SELFPAY ==
--- NOTE | ~2023-07-19 | US_ITS ---
EXAMINATION: US ABDOMEN COMPLETE CLINICAL INFORMATION: Abdominal pain. COMPARISON: CT scan abdomen and pelvis 06/03/2013, abdominal ultrasound 05/21/2013 TECHNIQUE: Real-time imaging of the abdominal viscera. FINDINGS: PANCREAS: No focal mass is seen within the pancreas. Pancreatic duct is prominent measuring 0.255 cm. ABDOMINAL AORTA: The proximal, mid, and distal segments are normal in caliber. Atherosclerotic plaque is seen within the distal abdominal aorta. INFERIOR VENA CAVA: Visualized portions are normal. LIVER: Normal. The liver is normal in size. The liver contour is normal. Parenchymal echogenicity is normal. No focal hepatic lesion. There is no intrahepatic biliary duct dilatation seen. GALLBLADDER: Normal. The gallbladder is physiologically distended without evidence of stones, sludge, polyps, wall thickening or pericholecystic fluid. The patient reports tenderness while scanning over the gallbladder, however, there are no findings suggestive of cholecystitis. COMMON BILE DUCT: The extrahepatic common bile duct measures 0.9 cm and at the pancreas measures 0.8 cm. This has been noted previously. RIGHT KIDNEY: Normal. No hydronephrosis. No renal calculi or focal parenchymal lesions. The kidney measures 10.0 cm in maximum dimension. LEFT KIDNEY: Normal. No hydronephrosis. No renal calculi or focal parenchymal lesions. The kidney measures 10.6 cm in maximum dimension. SPLEEN: Normal. The spleen measures 10.0 cm in maximum dimension. FREE FLUID: None. US/US abdomen complete IMPRESSION: 1. The patient reports tenderness while scanning over the gallbladder, however, there are no findings suggestive of cholecystitis. 2. Dilatation of the common bile duct has been noted previously. 3. Atherosclerotic plaque is seen within the distal abdominal aorta.
== END 2023-07-19 08:17 | disposition home or self-care (01) ==
LOC: HO.US 08:16
PROVIDERS: PCP Internal Medicine; Visit Provider Internal Medicine
DX: R10.9 Unspecified abdominal pain (principal)
CPT/HCPCS: 76700

== ENCOUNTER 2023-07-23 07:47 | Outpatient (REF) | payer MEDICARE, OTHER, SELFPAY ==
[2023-07-23 07:47] VITALS: BP 140/73; PULSE 68; RESP 18; TEMP 36.4; O2SAT 95
[2023-07-23] MEDS: methylPREDNISolone Sod Succ 1,000 MG in 0.9 % Sodium Chloride 100 ML 116 MG IV (08:10)
[2023-07-23 09:05] VITALS: BP 118/59; PULSE 60; RESP 16; O2SAT 95
== END 2023-07-23 07:48 | disposition home or self-care (01) ==
LOC: HO.MDS 07:47
PROVIDERS: Visit Provider Psychiatry & Neurology Neurology
DX: G35 Multiple sclerosis (principal)
CPT/HCPCS: 96365; J2930

== ENCOUNTER 2023-10-31 07:44 | Outpatient (REF) | payer MEDICARE, OTHER, SELFPAY ==
[2023-10-31 08:57] LABS: Alanine Aminotransferase 44 U/L (0-31); Albumin Level 4.5 g/dL (3.5-5.0); Alkaline Phosphatase 73 U/L (39-117); Aspartate Amino Transferase 32 U/L (5-31); Bilirubin Direct 0.1 mg/dL (0.0-0.5); Bilirubin Total 0.3 mg/dL (0.0-1.0); Total Protein 7.3 g/dL (6.5-8.0)
== END 2023-10-31 07:45 | disposition home or self-care (01) ==
LOC: HO.LAB 07:44
PROVIDERS: Absent Provider Podiatrist; PCP Internal Medicine; Visit Provider Internal Medicine
DX: B35.1 Tinea unguium (principal)
CPT/HCPCS: 36415; 80076

== ENCOUNTER 2023-11-01 10:28 | Outpatient (REF) | payer MEDICARE, OTHER, SELFPAY ==
[2023-11-01 10:39] LABS: MANUAL DIFF FLAG NO
[2023-11-01 11:10] LABS: Basophils Percent Auto 0.3 % (0-2); Estimated Average Glucose 111 mg/dL; Hematocrit 41.6 % (37.0-47.0); Hemoglobin 13.7 g/dl (12.0-16.0); Hemoglobin A1c % 5.5 % (<6.0); Imm Gran Abs Auto 0.06 X10*3/uL (0.00-0.03); Imm Gran Pct Auto 0.4 % (0.0-0.4); Lymphocytes Percent Auto 14.9 % (20-40); Mean Corpuscular HGB Conc 32.9 g/dl (31.0-35.0); Mean Corpuscular Volume 87.9 fL (80.0-98.0); Mean Platelet Volume 11.6 fL (9.4-12.3); Monocytes Absolute Auto 0.9 X10*3/uL (0.1-1.2); Monocytes Percent Auto 6.4 % (2-11); Neutrophils Absolute Auto 10.5 x10*3/uL (2.0-8.3); Platelet Count 180 X10*3/uL (160-400); Red Blood Count 4.73 X10*6/uL (4.20-5.50); Red Cell Distribution Width 13.4 % (11.0-16.0); White Blood Count 13.5 X10*3/uL (4.8-10.8)
[2023-11-01 11:51] LABS: Alanine Aminotransferase 40 U/L (0-31); Albumin Level 4.4 g/dL (3.5-5.0); Alkaline Phosphatase 78 U/L (39-117); Anion Gap 12 (12-20); Aspartate Amino Transferase 30 U/L (5-31); Bilirubin Total 0.1 mg/dL (0.0-1.0); Blood Urea Nitrogen 33 mg/dL (9-16); Calcium 9.8 mg/dL (8.4-10.2); Carbon Dioxide 27 mmol/L (22-29); Chloride 110 mmol/L (96-108); Cholesterol 146 mg/dL (<200); Estimated Glomerular Filt Rate > 60; Glucose Fasting 105 mg/dL (60-99); HDL Cholesterol 64 mg/dL (>40); LDL Cholesterol Calculated 73 mg/dL (<100); Potassium 4.1 mmol/L (3.3-5.1); Sodium 145 mmol/L (135-145); Total Protein 7.1 g/dL (6.5-8.0); Triglycerides 49 mg/dL (<150)
[2023-11-01 12:10] LABS: TSH reflex Free T4 0.35 uIU/mL (0.32-4.0)
[2023-11-01 13:08] LABS: Appearance Urine Clear; Color Urine Yellow; Glucose Urine UA Negative (Negative); Leukocyte Esterase Urine Negative (Negative); Nitrite Urine Negative (Negative); Specific Gravity - Urine 1.025 (1.005-1.025); Urine Blood Negative (Negative); Urine Ketones Negative (Negative); Urine Protein Negative (Neg-Trace)
== END 2023-11-01 10:29 | disposition home or self-care (01) ==
LOC: HO.LAB 10:28
PROVIDERS: PCP Internal Medicine; Visit Provider Internal Medicine
DX: E78.00 Pure hypercholesterolemia, unspecified (principal); R30.0 Dysuria; E55.9 Vitamin D deficiency, unspecified; R73.01 Impaired fasting glucose; D64.9 Anemia, unspecified
CPT/HCPCS: 36415; 80053; 80061; 81003; 82306; 83036; 84443; 85025

== ENCOUNTER 2023-11-08 09:15 | Outpatient (AMB) | payer MEDICARE, OTHER, SELFPAY ==
--- NOTE | 2023-11-08 09:32 | A.OFFPC_ITS ---
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 Accompanied by: Self / Same As Patient Allergies codeine [Codeine] Adverse Reaction (Mild, Verified 11/08/23 10:24) UPSET STOMACH AND BAD DREAMS Medication List - Last Reconciled 11/08/23 by Sreedhar Patricia MD albuterol sulfate 90 mcg/actuation 2 puffs inhalation Q4-6H PRN aripiprazole (Abilify) 30 mg PO DAILY carisoprodol 350 mg PO TID gabapentin 600 mg PO TID lorazepam 0.5 mg PO BID PRN mirtazapine 45 mg PO BEDTIME montelukast 10 mg PO DAILY pramipexole 0.5 mg PO BEDTIME rosuvastatin 10 mg PO BEDTIME 90 days [solu medrol IV IV .once a month] vortioxetine (Trintellix) 20 mg PO DAILY Tobacco use date assessed: 07/02/23 Fall risk assessment: No Falls in past year Last assessed Fall Risk: 11/08/23 Dental Screening Dental Screen Date: 07/02/23 HPI MS, hyperlipidemia, HTN, IFG HPI Details Patient comes in today for her follow up visit States that she feels okay She denies any headaches or dizziness Denies any chest pains, no SOB No nausea/vomiting, no abdominal pain No change in bowel habits noted States that she continues to see her psychiatrist regularly every 6 weeks for follow up and her depression is well-controlled on her current med/regimen Had her follow up labs done last week - to discuss her results [facility] Medical History (Updated 11/08/23 @ 10:50 by Sreedhar Patricia MD) Restless leg syndrome Anemia Obesity (BMI 30-39.9) Primary osteoarthritis of right knee Anxiety Bipolar depression Irritable bowel syndrome (IBS) Multiple sclerosis Chronic obstructive pulmonary disease (COPD) Normal colonoscopy Pure hypercholesterolemia Surgical History (Updated 11/08/23 @ 10:30 by Sreedhar Patricia MD) Hx of colonoscopy Hx of arthroscopic knee surgery History of tubal ligation H/O knee surgery History of back surgery Family History Mother Lung cancer, Onset Age: 56 Father Heart problem Social History Housing: Apartment Are you a primary health care coordinator to a significant other at home: No Do you presently have visiting nurse or other home services: No Alcohol intake: never Patient Tobacco Use Status: Former Tobacco user Tobacco use type: Cigarette e-Cigarette/Vaping Use: Never Used Second Hand Smoke Exposure: No service: No Current occupational status: retired 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 Cognitive needs: No Hearing needs: No Vision needs: Yes Questionnaire PHQ-9 Over the last 2 weeks, how often have you been bothered by any of the following problems? Depression Screening Interpretation: Positive Depression Screening Follow-up: Existing condition and In treatment (sees psychiatry for follow up) Depression Screening Done: Yes Source: Developed by Drs. Harris Mcleod, Rakel Leggett, Neel Hawthorne and colleagues, with an educational bill from [employer]. Thrive Questionnaire Date Thrive assessed: 07/02/23 THRIVE Score: 0 ANDREINA-7 AMB Questionnaire ANDREINA-7 Date ANDREINA - 7 assessed: 11/08/23 Feeling nervous, anxious, or on edge: 2 = More than half the days Not being able to stop or control worryin = Several days Worrying too much about different things: 1 = Several days Trouble relaxin = Nearly every day Being so restless that it is hard to sit still: 0 = Not at all Becoming easily annoyed or irritable: 0 = Not at all Feeling afraid as if something awful might happen: 3 = Nearly every day Total ANDREINA-7 score (0-4 normal; 5-9 mild; 10-14 moderate; 15-21 severe): 10 Source: Developed by Drs. Harris Mcleod, Rakel Leggett, Neel Hawthorne and colleagues, with an educational bill from [employer]. Review of Systems Const Denies chills, Reports fatigue, Denies fever(s), Denies headache(s) and Reports weakness (at times, from her MS) Eyes Denies blurry vision and Denies diplopia ENT Denies dysphagia, Denies dizziness, Denies otalgia, Denies headache(s), Denies neck pain, Denies odynophagia and Denies sore throat Card Denies chest pain, Denies rapid heart rate, Denies palpitations and Reports dyspnea on exertion (mid,at times ) Resp Denies chest congestion, Denies cough, Reports dyspnea on exertion (mid,at times ) and Denies wheezing GI Denies abdominal pain, Denies hematochezia, Denies constipation, Denies dysphagia, Denies heartburn, Denies diarrhea, Denies odynophagia and Denies vomiting Denies hematuria, Denies dysuria, Denies urinary incontinence and Denies urinary urgency Musc Reports back pain (occasionally - due to her MS) and Denies neck pain Skin/Breast Denies rash Neuro Denies dizziness, Denies headache(s) and Reports weakness (at times, from her MS) Endo Reports fatigue and Denies palpitations Aller/Immun Denies wheezing Physical exam (Primary Care) Vital Signs: Last Vital Signs Pulse 76 11/08/23 09:40 BP 118/72 11/08/23 09:40 Pulse Ox 96 11/08/23 09:40 Oxygen Delivery Method Room Air 11/08/23 09:40 BMI result Body Mass Index 29.2 Tobacco/Smoking Status: Tobacco use Status Tobacco use date assessed 07/02/23 11/08/23 09:35 Patient Tobacco Use Status Former Tobacco user 11/08/23 09:35 Tobacco use type Cigarette 11/08/23 09:35 e-Cigarette/Vaping Use Never Used 11/08/23 09:35 Depression Screening Interpretation: Positive Depression Screening Follow-up: Existing condition and In treatment (sees psychiatry for follow up) Thrive Assessment: Date of Thrive Assessment Date Thrive assessed 07/02/23 11/08/23 09:35 Const General: no acute distress and alert HENMT Ears: TM's normal bilaterally and EAC's normal Throat: Yes posterior oropharynx normal and Yes tonsils normal (no TP congestion noted) Neck Neck: Yes no lymphadenopathy and Yes supple Thyroid: Thyroid normal Resp Auscultation: clear to auscultation bilaterally, no rales and no wheezes Cardio Rate: regular rate Rhythm: regular rhythm Heart sounds: no murmurs GI Palpation (GI): Soft to palpation and nontender Auscultation: normal bowel sounds General: Yes no CVA tenderness Back/Spine/Pelvis Back: no CVA tenderness Thoracic/Lumbar Spine: No lumbar spinal tenderness Skin Rashes: no rashes Extrem General: Yes no clubbing, cyanosis or edema Right lower extremity: knee Details: tenderness (mild) and normal ROM; no swelling Results Reviewed Results Reviewed: Laboratory Tests 11/01/23 11/01/23 10:38 10:40 WBC 13.5 H Hgb 13.7 Hct 41.6 Plt Count 180 D Sodium 145 Potassium 4.1 D Creatinine 0.69 Estimated GFR > 60 Fasting Glucose 105 H Hemoglobin A1c % 5.5 Calcium 9.8 AST 30 ALT 40 H Triglycerides 49 Cholesterol 146 LDL Cholesterol, Calc 73 HDL Cholesterol 64 25-OH Vitamin D Total 42.0 TSH 0.35 Ur Specific [place] 1.025 Urine Protein Negative Urine Glucose (UA) Negative Urine Blood Negative Urine Nitrite Negative Ur Leukocyte Esterase Negative Assessment and Plan Assessment & Plan (1) Pure hypercholesterolemia: Code(s): E78.00 - Pure hypercholesterolemia, unspecified Plan: Results of her labs done last week reviewed and discussed with patient Reinforced low cholesterol diet Continue Rosuvastatin 10 mg QD Will recheck her labs and fasting lipids in 4 months for follow up (2) Irritable bowel syndrome (IBS): Code(s): K58.9 - Irritable bowel syndrome without diarrhea Qualifiers: Irritable bowel syndrome type: unspecified Qualified Code(s): K58.9 - Irritable bowel syndrome without diarrhea Plan: Patient states that her previous GI symptoms (abdominal pain, diarrhea/loose stools) have all resolved and she currently has no acute issues Abdominal US done back in July 2023 reported some tenderness noted when scanning over the gallbladder area but there were no findings at the time to suggest cholecystitis. There was also dilatation of the CBD noted as well as some atherosclerotic plaques seen within the distal abdominal aorta Follow up with GI as scheduled (3) Multiple sclerosis: Code(s): G35 - Multiple sclerosis Plan: Continue Carisoprodol 350 mg TID and Gabapentin 600 mg TID She is also still getting IV Solumedrol monthly for her MS Follow up with neurology as scheduled - MS has been reportedly stable from neurology standpoint (4) Leukocytosis (leucocytosis): Code(s): D72.829 - Elevated white blood cell count, unspecified Qualifiers: Leukocytosis type: bandemia Qualified Code(s): D72.825 - Bandemia Plan: (+) elevated WBC count and neutrophilia on her recent labs Advised that this is likely a result of her psychiatric Rx and also partly from her IV Solumedrol infusions Will continue to monitor her CBC regularly for now (5) Chronic obstructive pulmonary disease (COPD): Comment: (+) interstitial fibrosis of the lungs Code(s): J44.9 - Chronic obstructive pulmonary disease, unspecified Qualifiers: COPD type: unspecified COPD Qualified Code(s): J44.9 - Chronic obstructive pulmonary disease, unspecified Plan: Stable/controlled Continue Albuterol HFA 1 to 2 inhalations Q 6 hours PRN Follow up with pulmonary as scheduled (6) Impaired fasting glucose: Code(s): R73.01 - Impaired fasting glucose Plan: Her FBS readings have been noted to be slightly elevated on her most recent labs over the past year and was still slightly elevated at 105 mg/dl on her labs done last week Her in-office HgbA1c done a few months ago was at 5.9%; HgbA1c was normal at 5.5% on her labs from a week ago Reinforced low calorie/low carb diet Reminded again that her regular Solumedrol IV infusions may also be affecting her blood sugar to some extent Will continue to monitor her FBS and HgbA1c regularly (7) Primary osteoarthritis of right knee: Comment: S/P total right knee arthroplasty on 06/21/2021 Code(s): M17.11 - Unilateral primary osteoarthritis, right knee Plan: S/P total right knee arthroplasty on 06/21/[address] Rodarte States that she has been doing well since; S/P physical therapy, which patient states have also helped a lot Continue Tramadol 50 mg - she takes this only PRN for pain Follow up with orthopedics as scheduled (8) Anemia: Code(s): D64.9 - Anemia, unspecified Qualifiers: Anemia type: unspecified type Qualified Code(s): D64.9 - Anemia, unspecified Plan: RESOLVED; patient's H/H remain normal on her recent labs Was most likely due to intraop and postop bleeding during her orthopedic surgery Patient is currently clinically asymptomatic; will continue to monitor her CBC periodically (9) Onychomycosis of toenail: Code(s): B35.1 - Tinea unguium Plan: Continue Terbinafine 250 mg QD - she was started on this by podiatry and should be almost done with this soon Her LFTs were normal on her recent labs Follow up with podiatry as scheduled (10) Restless leg syndrome: Code(s): G25.81 - Restless legs syndrome Plan: Continue Pramipexole 0.5 mg Q HS (11) Anxiety: Code(s): F41.9 - Anxiety disorder, unspecified Plan: Continue Lorazepam 0.5 mg BID PRN (Lorazepam dosage has been lowered from her previous 2 mg by psychiatry) (12) Bipolar depression: Code(s): F31.9 - Bipolar disorder, unspecified Plan: Continue Aripiprazole 30 mg QD, Mirtazapine 45 mg Q HS and Trintellix 20 mg QD (was previously on Buspirone and Escitalopram) Follow up with psychiatry as scheduled - sees her psychiatry every 6 weeks (13) Overweight (BMI 25.0-29.9): Code(s): E66.3 - Overweight Plan: Reinforced diet/exercise as tolerated/lose weight Plan Follow up in 4 months Orders: Orders Comprehensive [place]. Panel Fast 4 Months E78.00 - Pure hypercholesterolemia, unspecified Hemoglobin A1c 4 Months R73.01 - Impaired fasting glucose TSH reflex Free T4 4 Months E78.00 - Pure hypercholesterolemia, unspecified Vitamin D 25-OH Total 4 Months E55.9 - Vitamin D deficiency, unspecified Complete Blood Count Auto Diff 4 Months D64.9 - Anemia, unspecified Lipid Panel 4 Months E78.00 - Pure hypercholesterolemia, unspecified UA CC w/rflx Micro + Cult 4 Months R30.0 - Dysuria Coding Level of Care Code Est Pt Level 4 (86397) Complex EM visit Add On G2211 Diagnoses Pure hypercholesterolemia E78.00 Irritable bowel syndrome, unspecified type K58.9 Irritable bowel syndrome type: unspecified Multiple sclerosis G35 Bandemia D72.825 Leukocytosis type: bandemia Chronic obstructive pulmonary disease, unspecified COPD type J44.9 COPD type: unspecified COPD Impaired fasting glucose R73.01 Primary osteoarthritis of right knee M17.11 Anemia, unspecified type D64.9 Anemia type: unspecified type Onychomycosis of toenail B35.1 Restless leg syndrome G25.81 Anxiety F41.9 Bipolar depression F31.9 Overweight (BMI 25.0-29.9) E66.3
[2023-11-08 09:40] VITALS: BP 118/72; PULSE 76; O2SAT 96; BMI 29.2
== END 2023-11-08 10:31 | disposition home or self-care (01) ==
PROVIDERS: PCP Internal Medicine; Visit Provider Internal Medicine
DX: E78.00 Pure hypercholesterolemia, unspecified (principal); G35 Multiple sclerosis; J44.9 Chronic obstructive pulmonary disease, unspecified; F31.9 Bipolar disorder, unspecified; K58.9 Irritable bowel syndrome, unspecified; D72.825 Bandemia; R73.01 Impaired fasting glucose; M17.11 Unilateral primary osteoarthritis, right knee; D64.9 Anemia, unspecified; B35.1 Tinea unguium; G25.81 Restless legs syndrome; F41.9 Anxiety disorder, unspecified
CPT/HCPCS: 99214; G2211

== ENCOUNTER 2024-03-19 06:06 | Outpatient (REF) | payer MEDICARE, OTHER, SELFPAY ==
[2024-03-19 06:31] LABS: MANUAL DIFF FLAG NO
[2024-03-19 07:49] LABS: Basophils Absolute Auto 0.1 X10*3/uL (0.0-0.2); Eosinophils Absolute Auto 0.2 X10*3/uL (0.0-0.4); Eosinophils Percent Auto 3.8 % (0-4); Hematocrit 41.3 % (37.0-47.0); Hemoglobin 13.2 g/dl (12.0-16.0); Imm Gran Abs Auto 0.01 X10*3/uL (0.00-0.03); Imm Gran Pct Auto 0.2 % (0.0-0.4); Lymphocytes Absolute Auto 2.3 X10*3/uL (1.2-4.9); Lymphocytes Percent Auto 43.8 % (20-40); Mean Corpuscular Hemoglobin 28.3 pg (27.0-33.0); Mean Corpuscular Volume 88.4 fL (80.0-98.0); Mean Platelet Volume 11.2 fL (9.4-12.3); Monocytes Absolute Auto 0.4 X10*3/uL (0.1-1.2); Monocytes Percent Auto 7.4 % (2-11); Neutrophils Absolute Auto 2.3 x10*3/uL (2.0-8.3); Neutrophils Percent Auto 43.8 % (45-73); Platelet Count 181 X10*3/uL (160-400); Red Blood Count 4.67 X10*6/uL (4.20-5.50); White Blood Count 5.3 X10*3/uL (4.8-10.8)
[2024-03-19 07:50] LABS: Estimated Average Glucose 114 mg/dL; Hemoglobin A1C 128.3289 umol/L; Hemoglobin A1c % 5.6 % (<6.0); Total Hemoglobin (HGBA1C) 3446.9054 umol/L
[2024-03-19 08:01] LABS: Appearance Urine Clear; Color Urine Yellow; Glucose Urine UA Negative (Negative); Leukocyte Esterase Urine Negative (Negative); Nitrite Urine Negative (Negative); Urine Blood Negative (Negative); Urine Ketones Negative (Negative); Urine Protein Negative (Neg-Trace)
[2024-03-19 08:23] LABS: Alanine Aminotransferase 26 U/L (0-31); Albumin Level 4.4 g/dL (3.5-5.0); Alkaline Phosphatase 70 U/L (39-117); Anion Gap 15 (12-20); Aspartate Amino Transferase 26 U/L (5-31); Bilirubin Total 0.3 mg/dL (0.0-1.0); Blood Urea Nitrogen 29 mg/dL (9-16); Calcium 9.9 mg/dL (8.4-10.2); Carbon Dioxide 27 mmol/L (22-29); Chloride 108 mmol/L (96-108); Cholesterol 140 mg/dL (<200); Estimated Glomerular Filt Rate > 60; Glucose Fasting 90 mg/dL (60-99); HDL Cholesterol 50 mg/dL (>40); LDL Cholesterol Calculated 67 mg/dL (<100); Potassium 3.9 mmol/L (3.3-5.1); Sodium 146 mmol/L (135-145); Triglycerides 117 mg/dL (<150)
[2024-03-19 08:40] LABS: TSH reflex Free T4 1.81 uIU/mL (0.32-4.0); Vitamin D 25-OH Total 42.4 ng/mL (>30)
== END 2024-03-19 06:07 | disposition home or self-care (01) ==
LOC: HO.LAB 06:06
PROVIDERS: PCP Internal Medicine; Visit Provider Internal Medicine
DX: E78.00 Pure hypercholesterolemia, unspecified (principal); E55.9 Vitamin D deficiency, unspecified; R30.0 Dysuria; R73.01 Impaired fasting glucose; D64.9 Anemia, unspecified
CPT/HCPCS: 36415; 80053; 80061; 81003; 82306; 83036; 84443; 85025

== ENCOUNTER 2024-03-25 09:29 | Outpatient (AMB) | payer MEDICARE, OTHER, SELFPAY ==
[2024-03-25 09:33] VITALS: BP 134/86; PULSE 72; O2SAT 99; BMI 29.4
--- NOTE | 2024-03-25 09:33 | A.OFFPC_ITS ---
Vital Signs 03/25/24 09:33 Height 5 ft 3 in Weight 166 lb 4 oz BMI 29.4 BP 134/86 Blood Pressure Location Lt brachial Position Sitting Pulse 72 Pulse Source Pulse Oximeter Pulse Oximetry (%) 99 Oxygen Delivery Method Room Air Intake Visit Reasons: [facility] f/u Portfolio Consultant Required: No Accompanied by: Self / Same As Patient Allergies codeine [Codeine] Adverse Reaction (Mild, Verified 03/25/24 10:10) UPSET STOMACH AND BAD DREAMS Medication List - Last Reconciled 03/25/24 by Sreedhar Patricia MD albuterol sulfate 90 mcg/actuation 2 puffs inhalation Q4-6H PRN aripiprazole (Abilify) 30 mg PO DAILY carisoprodol 350 mg PO TID gabapentin 600 mg PO TID lorazepam 0.5 mg PO BID PRN mirtazapine 45 mg PO BEDTIME montelukast 10 mg PO DAILY pramipexole 0.5 mg PO BEDTIME rosuvastatin 10 mg PO BEDTIME 90 days [solu medrol IV IV .once a month] vortioxetine (Trintellix) 20 mg PO DAILY Tobacco use date assessed: 03/25/24 Fall risk assessment: 1 Fall in past year Last assessed Fall Risk: 03/25/24 Dental Screening Dental Screen Date: 03/25/24 Did you have a dental visit in the last 12 months?: Yes Did you have a dental problem in the last 6 months where you did not have access to dental care?: No Was dental information given to patient?: Patient has dentist HPI [facility] f/u HPI Details Patient comes in today for her follow up visit States that she feels okay She denies any headaches or dizziness Denies any chest pains, no increased SOB No nausea/vomiting, no abdominal pain No change in bowel habits noted She continues to see her psychiatrist regularly every 6 weeks for follow up - states that her depression remains well-controlled on her current med/regimen She had her follow up labs done last week - to discuss her results [facility] Medical History Restless leg syndrome Anemia Obesity (BMI 30-39.9) Primary osteoarthritis of right knee Anxiety Bipolar depression Irritable bowel syndrome (IBS) Multiple sclerosis Chronic obstructive pulmonary disease (COPD) Normal colonoscopy Pure hypercholesterolemia Surgical History Hx of colonoscopy Hx of arthroscopic knee surgery History of tubal ligation H/O knee surgery History of back surgery Family History Mother Lung cancer, Onset Age: 56 Father Heart problem Social History Housing: Apartment Are you a primary director of home care hospice to a significant other at home: No Do you presently have visiting nurse or other home services: No Alcohol intake: never Patient Tobacco Use Status: Former Tobacco user Tobacco use type: Cigarette e-Cigarette/Vaping Use: Never Used Second Hand Smoke Exposure: No service: No Current occupational status: retired 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 Cognitive needs: No Hearing needs: No Vision needs: Yes Questionnaire PHQ-9 Over the last 2 weeks, how often have you been bothered by any of the following problems? 1. Little interest or pleasure in doing things: not at all 2. Feeling down, depressed, or hopeless: not at all 3. Trouble falling or staying asleep, or sleeping too much: not at all 4. Feeling tired or having little energy: not at all 5. Poor appetite or overeating: not at all 6. Feeling bad about yourself - or that you are a failure or have let yourself or your family down: not at all 7. Trouble concentrating on things, such as reading the newspaper or watching television: not at all 8. Moving or speaking so slowly that other people could have noticed. Or the opposite - being so fidgety or restless that you have been moving around a lot more than usual: not at all 9. Thoughts that you would be better off or of hurting yourself in some way: not at all Total score: 0 Depression Screening Interpretation: Positive Depression Screening Follow-up: Existing condition and In treatment (sees psychiatry for follow up) Depression Screening Done: Yes 43297 - PHQ-9 Billing: Yes Source: Developed by Drs. Harris Mcleod, Rakel Leggett, Neel Hawthorne and colleagues, with an educational bill from [employer]. Thrive Questionnaire Date Thrive assessed: 03/25/24 I am a: Patient What is your living situation today?: I have a steady place to live Within the past 12 months, did the food you bought not last and you didn't have the money to get more?: Never true Within the past 12 months, did you worry whether your food would run out before you got money to buy more?: Never true Do you have trouble paying for medicines?: No Do you have trouble getting transportation to medical appointments?: No Do you have trouble paying your heating and electricity bill?: No Do you have trouble taking care of your child, family member or friend?: No Do you have trouble with day-to-day activities such as bathing, preparing meals, shopping, managing finances, etc.?: No Are you currently unemployed and looking for a job?: No Are you interested in more education?: No Please select the resources that you would like help with: None Currently or been in a relationship where the following occur: No concerns reported THRIVE Score: 0 AUDIT C Alcohol Use Questionnaire (AUDIT-C) 1. How often do you have a drink containing alcohol?: Never 3. How often do you have six or more drinks on one occasion?: Never Total Score: 0 Score Reviewed/Action Taken: Yes ANDREINA-7 AMB Questionnaire ANDREINA-7 Date ANDREINA - 7 assessed: 03/25/24 Feeling nervous, anxious, or on edge: 2 = More than half the days Not being able to stop or control worryin = Several days Worrying too much about different things: 1 = Several days Trouble relaxin = Nearly every day Being so restless that it is hard to sit still: 0 = Not at all Becoming easily annoyed or irritable: 0 = Not at all Feeling afraid as if something awful might happen: 3 = Nearly every day Total ANDREINA-7 score (0-4 normal; 5-9 mild; 10-14 moderate; 15-21 severe): 10 Source: Developed by Drs. Harris Mcleod, Rakel Leggett, Neel Hawthorne and colleagues, with an educational bill from [employer]. Review of Systems Const Denies chills, Reports fatigue, Denies fever(s), Denies headache(s) and Reports weakness (at times, from her MS) Eyes Denies diplopia ENT Denies dysphagia, Denies dizziness, Denies otalgia, Denies headache(s), Denies neck pain, Denies odynophagia and Denies sore throat Card Denies chest pain, Denies rapid heart rate, Denies palpitations and Reports dyspnea on exertion (mild,at times ) Resp Denies chest congestion, Denies cough and Reports dyspnea on exertion (mild,at times ) GI Denies abdominal pain, Denies constipation, Denies dysphagia, Denies heartburn, Denies diarrhea, Denies odynophagia and Denies vomiting Denies nocturia, Denies dysuria, Denies urinary incontinence and Denies urinary urgency Musc Reports back pain (on and off - due to her MS) and Denies neck pain Skin/Breast Denies rash Neuro Denies dizziness, Denies headache(s) and Reports weakness (at times, from her MS) Endo Reports fatigue and Denies palpitations Physical exam (Primary Care) Vital Signs: Last Vital Signs Pulse 72 03/25/24 09:33 BP 134/86 03/25/24 09:33 Pulse Ox 99 03/25/24 09:33 Oxygen Delivery Method Room Air 03/25/24 09:33 BMI result Body Mass Index 29.4 Tobacco/Smoking Status: Tobacco use Status Tobacco use date assessed 03/25/24 03/25/24 09:39 Patient Tobacco Use Status Former Tobacco user 03/25/24 09:39 Tobacco use type Cigarette 03/25/24 09:39 e-Cigarette/Vaping Use Never Used 03/25/24 09:39 PHQ-9: PHQ-9 Score PHQ-9: Total score 0 03/25/24 09:40 Depression Screening Interpretation: Positive Depression Screening Follow-up: Existing condition and In treatment (sees psychiatry for follow up) Thrive Assessment: Date of Thrive Assessment Date Thrive assessed 03/25/24 03/25/24 09:39 Currently or been in a relationship where the following occur: No concerns reported Const General: no acute distress and alert HENMT Ears: TM's normal bilaterally and EAC's normal Throat: Yes posterior oropharynx normal and Yes tonsils normal (no TP congestion noted) Neck Neck: Yes no lymphadenopathy and Yes supple Thyroid: Thyroid normal Resp Auscultation: clear to auscultation bilaterally, no rales and no wheezes Cardio Rate: regular rate Rhythm: regular rhythm Heart sounds: no murmurs GI Palpation (GI): Soft to palpation and nontender Auscultation: normal bowel sounds General: Yes no CVA tenderness Back/Spine/Pelvis Back: no CVA tenderness Thoracic/Lumbar Spine: No lumbar spinal tenderness Skin Rashes: no rashes Extrem General: Yes no clubbing, cyanosis or edema Right lower extremity: knee Details: tenderness (mild) and normal ROM; no swelling Office Procedures Flu Questionnaire Does the patient have a severe egg allergy?: No Immunizations Fluarix Triv [id number] (PF) 45 mcg (15 mcg x 3)/0.5 mL IM syringe Performing Provider: Sreedhar Patricia MD Performing Location: [facility] Documented (not given) by: BRET Alvarenga on 03/25/24 09:41 Reason Not Given: Received Previously Results Reviewed Results Reviewed: Laboratory Tests 03/19/24 03/19/24 03/19/24 06:28 06:29 06:30 WBC 5.3 Hgb 13.2 Hct 41.3 Plt Count 181 Sodium 146 H Potassium 3.9 Creatinine 0.79 Estimated GFR > 60 Fasting Glucose 90 Hemoglobin A1c % 5.6 Calcium 9.9 AST 26 ALT 26 Triglycerides 117 Cholesterol 140 LDL Cholesterol, Calc 67 HDL Cholesterol 50 25-OH Vitamin D Total 42.4 TSH 1.81 Ur Specific [place] 1.020 Urine Protein Negative Urine Glucose (UA) Negative Urine Blood Negative Urine Nitrite Negative Ur Leukocyte Esterase Negative Coding Level of Care Code Est Pt Level 4 (31916) Diagnoses Pure hypercholesterolemia E78.00 Multiple sclerosis G35 Irritable bowel syndrome, unspecified type K58.9 Irritable bowel syndrome type: unspecified Bandemia D72.825 Leukocytosis type: bandemia Chronic obstructive pulmonary disease, unspecified COPD type J44.9 COPD type: unspecified COPD Impaired fasting glucose R73.01 Primary osteoarthritis of right knee M17.11 Anemia, unspecified type D64.9 Anemia type: unspecified type Restless leg syndrome G25.81 Anxiety F41.9 Bipolar depression F31.9 Overweight (BMI 25.0-29.9) E66.3 Additional Codes PHQ-9 - 44057 - PHQ-9 Billing: Yes ([id number]) Assessment & Plan Assessment & Plan (1) Pure hypercholesterolemia: Code(s): E78.00 - Pure hypercholesterolemia, unspecified Category: Medical Plan: Results of her labs done last week reviewed and discussed with patient Reinforced low cholesterol diet Continue Rosuvastatin 10 mg QD Will recheck her labs and fasting lipids in 4 months for follow up (2) Multiple sclerosis: Code(s): G35 - Multiple sclerosis Category: Medical Plan: Continue Carisoprodol 350 mg TID and Gabapentin 600 mg TID She is still getting IV Solumedrol monthly for her MS Follow up with neurology (Dr. Larkin) as scheduled - her MS has been reportedly stable from neurology standpoint (3) Irritable bowel syndrome (IBS): Code(s): K58.9 - Irritable bowel syndrome, unspecified Category: Medical Qualifiers: Irritable bowel syndrome type: unspecified Qualified Code(s): K58.9 - Irritable bowel syndrome without diarrhea Plan: Patient states that her previous GI symptoms (abdominal pain, diarrhea/loose stools) have all resolved and she currently has no acute issues Abdominal US done back in July 2023 reported some tenderness noted when scanning over the gallbladder area but there were no findings at the time to suggest cholecystitis. There was also dilatation of the CBD noted as well as some atherosclerotic plaques seen within the distal abdominal aorta Follow up with GI as scheduled (4) Leukocytosis (leucocytosis): Code(s): D72.829 - Elevated white blood cell count, unspecified Category: Medical Qualifiers: Leukocytosis type: bandemia Qualified Code(s): D72.825 - Bandemia Plan: This appears to have RESOLVED as her WBC count on her recent labs is now normal May have been due to one of her psychiatric Rx or from her Solumedrol infusions Will continue to monitor her CBC regularly (5) Chronic obstructive pulmonary disease (COPD): Comment: (+) interstitial fibrosis of the lungs Code(s): J44.9 - Chronic obstructive pulmonary disease, unspecified Category: Medical Qualifiers: COPD type: unspecified COPD Qualified Code(s): J44.9 - Chronic obstructive pulmonary disease, unspecified Plan: Stable/controlled Continue Albuterol HFA 1 to 2 inhalations Q 6 hours PRN Follow up with pulmonary as scheduled (6) Impaired fasting glucose: Code(s): R73.01 - Impaired fasting glucose Category: Medical Plan: Her FBS was normal on her recent labs at 90 mg/dl and her HgbA1c was also normal at 5.6% when checked last week HgbA1c was at 5.9% and 5.5% when previously checked Reinforced low calorie/low carb diet Have reminded patient that her regular Solumedrol IV infusions may be affecting her blood sugar to some extent Will continue to monitor her FBS and HgbA1c regularly (7) Primary osteoarthritis of right knee: Comment: S/P total right knee arthroplasty on 06/21/2021 Code(s): M17.11 - Unilateral primary osteoarthritis, right knee Category: Medical Plan: S/P total right knee arthroplasty on 06/21/[address] Rodarte States that she has been doing well since; S/P physical therapy, which patient states have also helped a lot Continue Tramadol 50 mg - she takes this only PRN for pain Follow up with orthopedics as scheduled (8) Anemia: Code(s): D64.9 - Anemia, unspecified Category: Medical Qualifiers: Anemia type: unspecified type Qualified Code(s): D64.9 - Anemia, unspecified Plan: RESOLVED; patient's H/H remained normal on her recent labs Was most likely due to intraop and postop bleeding during her orthopedic surgery Patient is currently clinically asymptomatic; will continue to monitor her CBC periodically (9) Restless leg syndrome: Code(s): G25.81 - Restless legs syndrome Category: Medical Plan: Continue Pramipexole 0.5 mg Q HS (10) Anxiety: Code(s): F41.9 - Anxiety disorder, unspecified Category: Medical Plan: Continue Lorazepam 0.5 mg BID PRN (Lorazepam was lowered from her previous 2 mg dosage by psychiatry) (11) Bipolar depression: Code(s): F31.9 - Bipolar disorder, unspecified Category: Medical Plan: Continue Aripiprazole 30 mg QD, Mirtazapine 45 mg Q HS and Trintellix 20 mg QD (was previously on Buspirone and Escitalopram) Follow up with psychiatry as scheduled - she sees her psychiatrist regularly every 6 weeks (12) Overweight (BMI 25.0-29.9): Code(s): E66.3 - Overweight Category: Medical Plan: Reinforced diet/exercise as tolerated/lose weight Plan Follow up in 4 months Orders: Orders Comprehensive [place]. Panel Fast 4 Months E78.00 - Pure hypercholesterolemia, unspecified Lipid Panel 4 Months E78.00 - Pure hypercholesterolemia, unspecified TSH reflex Free T4 4 Months E78.00 - Pure hypercholesterolemia, unspecified UA CC w/rflx Micro + Cult 4 Months R30.0 - Dysuria Influenza [id number] Immunization Today Z23 - Encounter for immunization Complete Blood Count Auto Diff 4 Months D64.9 - Anemia, unspecified Hemoglobin A1c 4 Months R73.01 - Impaired fasting glucose Vitamin D 25-OH Total 4 Months E55.9 - Vitamin D deficiency, unspecified
== END 2024-03-25 10:16 | disposition home or self-care (01) ==
PROVIDERS: PCP Internal Medicine; Visit Provider Internal Medicine
DX: E78.00 Pure hypercholesterolemia, unspecified (principal); G35 Multiple sclerosis; J44.9 Chronic obstructive pulmonary disease, unspecified; F31.9 Bipolar disorder, unspecified; K58.9 Irritable bowel syndrome, unspecified; D72.825 Bandemia; R73.01 Impaired fasting glucose; M17.11 Unilateral primary osteoarthritis, right knee; D64.9 Anemia, unspecified; E66.3 Overweight; Z68.29 Body mass index [BMI] 29.0-29.9, adult; G25.81 Restless legs syndrome

== ENCOUNTER → 2024-03-25 09:29 | Outpatient (BNVA) | payer MEDICARE, OTHER, SELFPAY | PROVIDERS: PCP Internal Medicine; Visit Provider Internal Medicine | DX: E78.00 Pure hypercholesterolemia, unspecified (principal); G35 Multiple sclerosis; K58.9 Irritable bowel syndrome, unspecified; D72.825 Bandemia; J44.9 Chronic obstructive pulmonary disease, unspecified; R73.01 Impaired fasting glucose; M17.11 Unilateral primary osteoarthritis, right knee; D64.9 Anemia, unspecified; G25.81 Restless legs syndrome; F41.9 Anxiety disorder, unspecified; F31.9 Bipolar disorder, unspecified; E66.3 Overweight | CPT/HCPCS: 90471; 96127; 99212 ==

== ENCOUNTER 2024-07-15 06:48 | Outpatient (REF) | payer MEDICARE, OTHER, SELFPAY ==
[2024-07-15 07:09] LABS: MANUAL DIFF FLAG NO
[2024-07-15 07:35] LABS: Basophils Absolute Auto 0.1 X10*3/uL (0.0-0.2); Basophils Percent Auto 0.8 % (0-2); Eosinophils Absolute Auto 0.3 X10*3/uL (0.0-0.4); Eosinophils Percent Auto 4.7 % (0-4); Hematocrit 42.7 % (37.0-47.0); Hemoglobin 13.3 g/dl (12.0-16.0); Imm Gran Abs Auto 0.01 X10*3/uL (0.00-0.03); Imm Gran Pct Auto 0.2 % (0.0-0.4); Lymphocytes Absolute Auto 1.6 X10*3/uL (1.2-4.9); Lymphocytes Percent Auto 26.7 % (20-40); Mean Corpuscular HGB Conc 31.1 g/dl (31.0-35.0); Mean Corpuscular Hemoglobin 27.9 pg (27.0-33.0); Mean Corpuscular Volume 89.5 fL (80.0-98.0); Mean Platelet Volume 10.7 fL (9.4-12.3); Monocytes Absolute Auto 0.4 X10*3/uL (0.1-1.2); Neutrophils Absolute Auto 3.6 x10*3/uL (2.0-8.3); Neutrophils Percent Auto 60.6 % (45-73); Platelet Count 213 X10*3/uL (160-400); Red Blood Count 4.77 X10*6/uL (4.20-5.50); Red Cell Distribution Width 13.5 % (11.0-16.0)
[2024-07-15 07:42] LABS: Estimated Average Glucose 111 mg/dL; Hemoglobin A1C 125.3393 umol/L; Hemoglobin A1c % 5.5 % (<6.0); Total Hemoglobin (HGBA1C) 3393.5285 umol/L
[2024-07-15 07:54] LABS: Appearance Urine Hazy; Color Urine Yellow; Glucose Urine UA Negative (Negative); Leukocyte Esterase Urine Negative (Negative); Nitrite Urine Negative (Negative); Specific Gravity - Urine 1.015 (1.005-1.025); Urine Blood Negative (Negative); Urine Ketones Negative (Negative); Urine Protein Negative (Neg-Trace)
[2024-07-15 08:20] LABS: Alanine Aminotransferase 23 U/L (0-31); Albumin Level 4.2 g/dL (3.5-5.0); Alkaline Phosphatase 77 U/L (39-117); Anion Gap 11 (12-20); Aspartate Amino Transferase 23 U/L (5-31); Bilirubin Total 0.3 mg/dL (0.0-1.0); Blood Urea Nitrogen 27 mg/dL (9-16); Calcium 9.8 mg/dL (8.4-10.2); Carbon Dioxide 29 mmol/L (22-29); Chloride 110 mmol/L (96-108); Cholesterol 125 mg/dL (<200); Estimated Glomerular Filt Rate > 60; Glucose Fasting 97 mg/dL (60-99); HDL Cholesterol 49 mg/dL (>40); LDL Cholesterol Calculated 52 mg/dL (<100); Potassium 4.3 mmol/L (3.3-5.1); Sodium 146 mmol/L (135-145); Total Protein 7.4 g/dL (6.5-8.0); Triglycerides 124 mg/dL (<150)
[2024-07-15 08:37] LABS: TSH reflex Free T4 1.07 uIU/mL (0.32-4.0); Vitamin D 25-OH Total 34.8 ng/mL (>30)
== END 2024-07-15 06:49 | disposition home or self-care (01) ==
LOC: HO.LAB 06:48
PROVIDERS: PCP Internal Medicine; Visit Provider Internal Medicine
DX: E78.00 Pure hypercholesterolemia, unspecified (principal); D64.9 Anemia, unspecified; R73.01 Impaired fasting glucose; E55.9 Vitamin D deficiency, unspecified; R30.0 Dysuria
CPT/HCPCS: 36415; 80053; 80061; 81003; 82306; 83036; 84443; 85025

== ENCOUNTER 2024-07-23 09:16 | Outpatient (AMB) | payer MEDICARE, OTHER, SELFPAY ==
[2024-07-23 09:20] VITALS: BP 120/78; PULSE 75; RESP 18; TEMP 36.9; O2SAT 94; BMI 29.2
--- NOTE | 2024-07-23 09:20 | MHC.PC.OV ---
Vital Signs 07/23/24 09:20 Height 5 ft 3 in Weight 164 lb 12.8 oz BMI 29.2 BP 120/78 Blood Pressure Location Lt brachial Position Sitting Respiration 18 Pulse 75 Pulse Source Pulse Oximeter Temp 98.5 F Temp Source Oral Pulse Oximetry (%) 94 Oxygen Delivery Method Room Air Intake Visit Reasons: COPD, HYPERLIPIDEMIA, IBS, MS, BIPOLAR DEPRESSION Back Up Scan Coordinator Required: No Accompanied by: Significant Other Allergies codeine [Codeine] Adverse Reaction (Mild, Verified 07/29/24 07:35) UPSET STOMACH AND BAD DREAMS Medication List - Last Reconciled 07/29/24 by JABARI Bess albuterol sulfate 90 mcg/actuation 2 puffs inhalation Q4-6H PRN aripiprazole (Abilify) 30 mg PO DAILY carisoprodol 350 mg PO TID gabapentin 600 mg PO TID lorazepam 1 mg PO BID mirtazapine 45 mg PO BEDTIME montelukast 10 mg PO DAILY pramipexole 0.5 mg PO BEDTIME rosuvastatin 10 mg PO BEDTIME 90 days [solu medrol IV IV .once a month] vortioxetine (Trintellix) 20 mg PO DAILY Tobacco use date assessed: 07/23/24 Fall risk assessment: 1 Fall in past year Last assessed Fall Risk: 07/23/24 Dental Screening Dental Screen Date: 07/23/24 Did you have a dental visit in the last 12 months?: Yes Did you have a dental problem in the last 6 months where you did not have access to dental care?: No Was dental information given to patient?: Patient has dentist HPI COPD, HYPERLIPIDEMIA, IBS, MS, BIPOLAR DEPRESSION HPI Details The patient is a 69-year-old female with significant past medical history of COPD, multiple sclerosis, anemia, osteoarthritis of right knee, bipolar depression, pure hypercholesteremia, impaired fasting glucose Patient is presenting today for follow up appointment of chronic conditions The patient reports that she is doing well overall She denies any chest pain, denies any increase in shortness of breath, heart palpitation, or dizziness Denies any change in bowel habits or urinary symptoms [facility] Medical History Restless leg syndrome Anemia Obesity (BMI 30-39.9) Primary osteoarthritis of right knee Anxiety Bipolar depression Irritable bowel syndrome (IBS) Multiple sclerosis Chronic obstructive pulmonary disease (COPD) Normal colonoscopy Pure hypercholesterolemia Surgical History Hx of colonoscopy Hx of arthroscopic knee surgery History of tubal ligation H/O knee surgery History of back surgery Family History Mother Lung cancer, Onset Age: 56 Father Heart problem Social History Housing: Apartment Are you a primary cattle care worker to a significant other at home: No Do you presently have visiting nurse or other home services: No Alcohol intake: never Patient Tobacco Use Status: Former Tobacco user Tobacco use type: Cigarette e-Cigarette/Vaping Use: Never Used Second Hand Smoke Exposure: No service: No Current occupational status: retired 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 Cognitive needs: No Hearing needs: No Vision needs: Yes Questionnaire PHQ-9 Over the last 2 weeks, how often have you been bothered by any of the following problems? 1. Little interest or pleasure in doing things: not at all 2. Feeling down, depressed, or hopeless: not at all 3. Trouble falling or staying asleep, or sleeping too much: not at all 4. Feeling tired or having little energy: not at all 5. Poor appetite or overeating: not at all 6. Feeling bad about yourself - or that you are a failure or have let yourself or your family down: not at all 7. Trouble concentrating on things, such as reading the newspaper or watching television: not at all 8. Moving or speaking so slowly that other people could have noticed. Or the opposite - being so fidgety or restless that you have been moving around a lot more than usual: not at all 9. Thoughts that you would be better off or of hurting yourself in some way: not at all Total score: 0 Depression Screening Interpretation: Positive Depression Screening Follow-up: Existing condition and In treatment (sees psychiatry for follow up) Depression Screening Done: Yes 01927 - PHQ-9 Billing: Yes Source: Developed by Drs. Harris Mcleod, Rakel Leggett, Neel Hawthorne and colleagues, with an educational bill from [employer]. Thrive Questionnaire Date Thrive assessed: 07/23/24 I am a: Patient What is your living situation today?: I have a steady place to live Within the past 12 months, did the food you bought not last and you didn't have the money to get more?: Never true Within the past 12 months, did you worry whether your food would run out before you got money to buy more?: Never true Do you have trouble paying for medicines?: No Do you have trouble getting transportation to medical appointments?: No Do you have trouble paying your heating and electricity bill?: No Do you have trouble taking care of your child, family member or friend?: No Do you have trouble with day-to-day activities such as bathing, preparing meals, shopping, managing finances, etc.?: No Are you currently unemployed and looking for a job?: No Are you interested in more education?: No Please select the resources that you would like help with: None Currently or been in a relationship where the following occur: No concerns reported THRIVE Score: 0 AUDIT C Alcohol Use Questionnaire (AUDIT-C) 1. How often do you have a drink containing alcohol?: Never 3. How often do you have six or more drinks on one occasion?: Never Total Score: 0 Score Reviewed/Action Taken: Yes ANDREINA-7 AMB Questionnaire ANDREINA-7 Date ANDREINA - 7 assessed: 07/23/24 Feeling nervous, anxious, or on edge: 0 = Not at all Not being able to stop or control worryin = Not at all Worrying too much about different things: 0 = Not at all Trouble relaxin = Not at all Being so restless that it is hard to sit still: 0 = Not at all Becoming easily annoyed or irritable: 0 = Not at all Feeling afraid as if something awful might happen: 0 = Not at all Total ANDREINA-7 score (0-4 normal; 5-9 mild; 10-14 moderate; 15-21 severe): 0 Source: Developed by Drs. Harris Mcleod, Rakel Leggett, Neel Hawthorne and colleagues, with an educational bill from [employer]. ANDREINA-7 Assessment Billing ANDREINA-7 Assessment Tool: ANDREINA-7 Assessment 62577 Review of Systems Const Denies headache(s) Eyes Denies loss of vision ENT Denies vertigo, Denies dizziness, Denies headache(s) and Denies sore throat Card Denies chest pain, Denies leg edema, Denies lightheadedness and Reports dyspnea on exertion (Mild-chronic) Resp Denies cough, Denies hemoptysis, Reports dyspnea on exertion (Mild-chronic) and Denies wheezing GI Denies abdominal pain, Denies melena, Denies constipation, Denies diarrhea and Denies vomiting Denies urinary frequency, Denies dysuria and Denies urinary urgency Musc Reports back pain (Intermittently-due to MS), Reports arthralgias (Right knee-intermittent), Denies joint swelling, Denies numbness and Denies tingling Neuro Denies Abnormal speech present, Denies behavioral changes, Denies vertigo, Denies dizziness, Denies headache(s), Denies loss of vision, Denies memory loss, Denies numbness and Denies tingling Psych Denies anxiety, Denies behavioral changes, Denies depression, Denies memory loss and Denies panic attacks Steve/Lymph Denies easy bleeding and Denies easy bruising Aller/Immun Denies wheezing Physical exam (Primary Care) Vital Signs: Last Vital Signs Temp 98.5 F 07/23/24 09:20 Pulse 75 07/23/24 09:20 Resp 18 07/23/24 09:20 BP 120/78 07/23/24 09:20 Pulse Ox 94 07/23/24 09:20 Oxygen Delivery Method Room Air 07/23/24 09:20 BMI result Body Mass Index 29.2 Tobacco/Smoking Status: Tobacco use Status Tobacco use date assessed 07/23/24 07/23/24 09:33 Patient Tobacco Use Status Former Tobacco user 07/23/24 09:33 Tobacco use type Cigarette 07/23/24 09:33 e-Cigarette/Vaping Use Never Used 07/23/24 09:33 PHQ-9: PHQ-9 Score PHQ-9: Total score 0 07/23/24 09:50 Depression Screening Interpretation: Positive Depression Screening Follow-up: Existing condition and In treatment (sees psychiatry for follow up) Thrive Assessment: Date of Thrive Assessment Date Thrive assessed 07/23/24 07/23/24 09:33 Currently or been in a relationship where the following occur: No concerns reported Const General: healthy appearing, no acute distress, alert and awake Nutritional Appearance: well nourished Orientation/consciousness: oriented to person, oriented to place and oriented to time HENMT Ears: TM's normal bilaterally General nose exam: Normal nasal mucous membranes and turbinates present Eyes Conjunctivae: conjunctivae normal Sclerae: sclerae normal Pupils: Equal, round and reactive pupils present Neck Neck: Yes no lymphadenopathy and Yes no JVD Thyroid: Thyroid normal Carotids: no bruits Resp Effort & Inspection: normal respiratory effort and not tachypneic Auscultation: no crackles, no rales, no rhonchi and no wheezes Cardio Rate: regular rate Rhythm: regular rhythm Heart sounds: no murmurs and normal S1 and S2 GI Palpation (GI): Soft to palpation, nontender, no hepatomegaly and no splenomegaly Auscultation: normal bowel sounds General: Yes no CVA tenderness Back/Spine/Pelvis Back: no CVA tenderness Cervical Spine: No Cervical spine tenderness Thoracic/Lumbar Spine: No thoracic spinal tenderness and No lumbar spinal tenderness Skin General skin exam: no rashes or lesions noted and dry skin Neuro General: oriented to person, oriented to place and oriented to time Cranial nerves: Yes Equal, round and reactive pupils present Speech: No Abnormal speech present Gait exam (Neuro): Normal gait present Motor exam (neuro): no tremor noted Extrem Right upper extremity: full ROM and normal capillary refill Left upper extremity: full ROM and normal capillary refill Right lower extremity: full ROM and knee Details: no tenderness and no swelling; no edema Left lower extremity: full ROM and knee Details: no tenderness and no swelling; no edema Psych Mental Status: mental status grossly normal Speech and movement: Normal speech and movement present Affect: normal affect Attitude: cooperative Thought process: Normal thought process present Results Reviewed Results Reviewed: Laboratory Tests 07/15/24 07/15/24 07:05 07:07 WBC 6.0 RBC 4.77 Hgb 13.3 Hct 42.7 Plt Count 213 Sodium 146 H Potassium 4.3 Chloride 110 H Anion Gap 11 L BUN 27 H Creatinine 0.75 Estimated GFR > 60 Fasting Glucose 97 Hemoglobin A1c % 5.5 Calcium 9.8 Total Bilirubin 0.3 AST 23 ALT 23 Alkaline Phosphatase 77 Total Protein 7.4 Albumin 4.2 Triglycerides 124 Cholesterol 125 LDL Cholesterol, Calc 52 HDL Cholesterol 49 25-OH Vitamin D Total 34.8 TSH 1.07 Urine Color Yellow Urine Appearance Hazy Urine pH 6.0 Ur Specific [place] 1.015 Urine Protein Negative Urine Glucose (UA) Negative Urine Ketones Negative Urine Blood Negative Urine Nitrite Negative Ur Leukocyte Esterase Negative Coding Level of Care Code Est Pt Level 4 (29112) Diagnoses Chronic obstructive pulmonary disease, unspecified COPD type J44.9 COPD type: unspecified COPD Pure hypercholesterolemia E78.00 Bipolar depression F31.9 Anxiety F41.9 Primary osteoarthritis of right knee M17.11 Overweight (BMI 25.0-29.9) E66.3 Bandemia D72.825 Leukocytosis type: bandemia Additional Codes ANDREINA-7 Assessment Billing - ANDREINA-7 Assessment Tool: ANDREINA-7 Assessment 85053 ([id number]) PHQ-9 - 04054 - PHQ-9 Billing: Yes ([id number]) Time Spent (min) 36 Assessment & Plan Assessment & Plan (1) Chronic obstructive pulmonary disease (COPD): Comment: (+) interstitial fibrosis of the lungs Code(s): J44.9 - Chronic obstructive pulmonary disease, unspecified Category: Medical Qualifiers: COPD type: unspecified COPD Qualified Code(s): J44.9 - Chronic obstructive pulmonary disease, unspecified Plan: Lifestyle modifications like smoking cessation. Wear a mask when around irritants, fumes, or particulate matter (e.g., painting, lawn mowing). Increase humidification at home, especially in the winter. Annual flu shots and the pneumonia shot can mitigate exacerbation. Increase fluids if not contraindicated because of heart failure. Controlled: Continue albuterol sulfate 90 mcg/actuation 2 puffs inhalation q.4-6 hours p.r.n., montelukast 10 mg daily, (2) Pure hypercholesterolemia: Code(s): E78.00 - Pure hypercholesterolemia, unspecified Category: Medical Plan: Encouraged to exercise for at least 30 minutes a day/5 days a week Healthy eating discussed. Encouraged to eat fruits/vegetables, protein-fish/baked chicken, and to avoid salty/fried foods, sweets, caffeine and carbohydrates. Encouraged to increase water intake 6-8 glasses a day Lipids are wnl, continues rosuvastatin 10 mg at HS - (3) Bipolar depression: Code(s): F31.9 - Bipolar disorder, unspecified Category: Medical Plan: Encourage counseling or cognitive behavioral therapy Continue Abilify 30 mg daily, mirtazapine 40 mg at bedtime, Trintellix 20 mg daily Denies SI/HI Follow up with Psychiatry as scheduled (4) Anxiety: Code(s): F41.9 - Anxiety disorder, unspecified Category: Medical Plan: Continue lorazepam 1 mg b.i.d. Follow up with Psychiatry as scheduled (5) Primary osteoarthritis of right knee: Comment: S/P total right knee arthroplasty on 06/21/2021 Code(s): M17.11 - Unilateral primary osteoarthritis, right knee Category: Medical Plan: Continue gabapentin 600 mg p.o. t.i.d. Set realistic goals (e.g., start walking 10 min 3 times a wk with eventual goal to be 30 min 3 times a wk Weight loss of at 10%, if indicated Rest joint 12 to 24 hr with acute pain, then resume ROM and exercise (especially aquatic exercise) Consider PT for suggestion of specific aerobic and strengthening exercises and OT for help with ADLs May use of items such as cane, knee brace, thumb splint (6) Overweight (BMI 25.0-29.9): Code(s): E66.3 - Overweight Category: Medical Plan: Discussed macronutrients and cutting simple and flour based carbs from the diet and increasing vegetables and good proteins and fats. Discussed exercising 3-5 days a week for at least 30 minutes to help boost metabolism and maintain strong muscles to maintain weight. (7) Leukocytosis (leucocytosis): Code(s): D72.829 - Elevated white blood cell count, unspecified Category: Medical Qualifiers: Leukocytosis type: bandemia Qualified Code(s): D72.825 - Bandemia Plan: WBC within normal limits We will continue to monitor Plan Patient to follow up in 4 months Orders: Orders Complete Blood Count Auto Diff 4 Months D64.9 - Anemia, unspecified, E66.9 - Obesity, unspecified, E78.00 - Pure hypercholesterolemia, unspecified, F31.9 - Bipolar disorder, unspecified, F41.9 - Anxiety disorder, unspecified, G35 - Multiple sclerosis, J44.9 - Chronic obstructive pulmonary disease, unspecified, K58.9 - Irritable bowel syndrome, unspecified, R73.01 - Impaired fasting glucose Lipid Panel 4 Months D64.9 - Anemia, unspecified, E66.9 - Obesity, unspecified, E78.00 - Pure hypercholesterolemia, unspecified, F31.9 - Bipolar disorder, unspecified, F41.9 - Anxiety disorder, unspecified, G35 - Multiple sclerosis, J44.9 - Chronic obstructive pulmonary disease, unspecified, K58.9 - Irritable bowel syndrome, unspecified, R73.01 - Impaired fasting glucose Vitamin D 25-OH Total 4 Months D64.9 - Anemia, unspecified, E66.9 - Obesity, unspecified, E78.00 - Pure hypercholesterolemia, unspecified, F31.9 - Bipolar disorder, unspecified, F41.9 - Anxiety disorder, unspecified, G35 - Multiple sclerosis, J44.9 - Chronic obstructive pulmonary disease, unspecified, K58.9 - Irritable bowel syndrome, unspecified, R73.01 - Impaired fasting glucose UA CC w/rflx Micro + Cult 4 Months D64.9 - Anemia, unspecified, E66.9 - Obesity, unspecified, E78.00 - Pure hypercholesterolemia, unspecified, F31.9 - Bipolar disorder, unspecified, F41.9 - Anxiety disorder, unspecified, G35 - Multiple sclerosis, J44.9 - Chronic obstructive pulmonary disease, unspecified, K58.9 - Irritable bowel syndrome, unspecified, R73.01 - Impaired fasting glucose TSH reflex Free T4 4 Months D64.9 - Anemia, unspecified, E66.9 - Obesity, unspecified, E78.00 - Pure hypercholesterolemia, unspecified, F31.9 - Bipolar disorder, unspecified, F41.9 - Anxiety disorder, unspecified, G35 - Multiple sclerosis, J44.9 - Chronic obstructive pulmonary disease, unspecified, K58.9 - Irritable bowel syndrome, unspecified, R73.01 - Impaired fasting glucose Glucose Fasting 4 Months D64.9 - Anemia, unspecified, E66.9 - Obesity, unspecified, E78.00 - Pure hypercholesterolemia, unspecified, F31.9 - Bipolar disorder, unspecified, F41.9 - Anxiety disorder, unspecified, G35 - Multiple sclerosis, J44.9 - Chronic obstructive pulmonary disease, unspecified, K58.9 - Irritable bowel syndrome, unspecified, R73.01 - Impaired fasting glucose Comprehensive [place]. Panel Fast 4 Months D64.9 - Anemia, unspecified, E66.9 - Obesity, unspecified, E78.00 - Pure hypercholesterolemia, unspecified, F31.9 - Bipolar disorder, unspecified, F41.9 - Anxiety disorder, unspecified, G35 - Multiple sclerosis, J44.9 - Chronic obstructive pulmonary disease, unspecified, K58.9 - Irritable bowel syndrome, unspecified, R73.01 - Impaired fasting glucose Hemoglobin A1c 4 Months D64.9 - Anemia, unspecified, E66.9 - Obesity, unspecified, E78.00 - Pure hypercholesterolemia, unspecified, F31.9 - Bipolar disorder, unspecified, F41.9 - Anxiety disorder, unspecified, G35 - Multiple sclerosis, J44.9 - Chronic obstructive pulmonary disease, unspecified, K58.9 - Irritable bowel syndrome, unspecified, R73.01 - Impaired fasting glucose
--- OUTSIDE RECORDS SUMMARY | 2024-07-23 10:05 | XMS_ITS | Patient Health Record ---
[facility] Address [address] [facility] [place] [address] Care Team Providers Care Workers Compensation Claims Analyst Name Role Phone Harshad CRAMER, [place] Primary Care Provider Lisa Siegel Unavailable [phone] Allergies No Known Allergies Reason For Referral No Information Medications Medication SIG (Take, Route, Frequency, Duration) Notes Start Date End Date Status Abilify 30 MG 1 tablet Orally Once a day Active LamISIL 250mg 1 Tablet orally Once a day for 90 days 06/25/2023 Not-Taking Soma 350 MG 1 tablet as needed Orally Four times a day Active Rosuvastatin Calcium 10 MG TAKE ONE TABL ET BY MOUTH AT BEDTIME Oral for 90 Days Active Carisoprodol 350 MG Oral for 30 Days Active Pramipexole Dihydrochloride 0.5 MG 1 tablet Orally Once a day Active Medrol Active Ciclopirox 0.77 % 1 application Externally Twice a day for 365 days Active Albuterol Sulfate HFA 108 (90 Base) MCG/ACT Inhalation for 17 Days Active Ciclopirox Olamine 0.77 % 1 application Externally Twice a day to skin of feet including between the toes for 30 days Active LORazepam 1 MG Oral for 30 Days Active Montelukast Sodium 10 MG Oral for 90 Days Active Mirtazapine 45 MG Oral for 30 Days Active SOLU-Medrol 2 GM as directed Injection 2023 Not-Taking Gabapentin 600 MG TAKE ONE TABLET BY MOUTH THREE TIMES A DAY Oral for 30 Days Active Social History Tobacco Use: Social History Observation Description Date Details (start date - stop date) Never Smoker NA - NA Alcohol Screen Question Answer Notes Did you have a drink containing alcohol in the p ast year? No Points 0 Interpretation Negative Tobacco use other than smoking: Question Answer Notes Are you an other tobacco user? No Tobacco Control (Standard) Question Answer Notes Tobacco use: Nonsmoker Vital Signs Blood pressure diastolic 83 mm Hg 06/25/2024 Height 5ft3in in 06/25/2024 Blood pressure systolic 120 mm Hg 06/25/2024 Weight 165 lbs 06/25/2024 BMI 29.23 kg/m2 06/25/2024 Encounters Encounter Location Date Provider Diagnosis [address] [address] 08/24/2023 Lisa Perica Fungal infection of nail B35.1 ; Pain in left toe(s) M79.675 and Pain in right toe(s) M79.[address] [address] 11/14/2023 Lisa Perica Fungal infection of nail B35.1 ; Pain in left toe(s) M79.675 and Pain in right toe(s) M79.[address] [address] 02/01/2024 Lisa Perica Fungal infection of nail B35.1 ; Pain in left toe(s) M79.675 and Pain in right toe(s) M79.[address] [address] 04/15/2024 Lisa Perica Fungal infection of nail B35.1 ; Pain in left toe(s) M79.675 and Pain in right toe(s) M79.[address] [address] 06/25/2024 Lisa Perica Fungal infection of nail B35.1 ; Tinea pedis of both feet B35.3 ; Pain in left toe(s) M79.675 and Pain in right toe(s) M79.[address] [address] 10/31/2023 [facility] [place] [address] [place] [address] 06/25/2024 Lisa Liu Assessments Encounter Date Diagnosis (ICD Code) Assessment Notes Treatment Notes Treatment Clinical Notes Section Notes 08/24/2023 Pain in left toe(s) (ICD-10 - M79.675) 08/24/2023 Fungal infection of nail (ICD-10 - B35.1) 11/14/2023 Fungal infection of nail (ICD-10 - B35.1) 02/01/2024 Fungal infection of nail (ICD-10 - B35.1) 04/15/2024 Pain in left toe(s) (ICD-10 - M79.675) 04/15/2024 Fungal infection of nail (ICD-10 - B35.1) 06/25/2024 Tinea pedis of both feet (ICD-10 - B35.3) 06/25/2024 Fungal infection of nail (ICD-10 - B35.1) 06/25/2024 Pain in left toe(s) (ICD-10 - M79.675) 04/15/2024 Pain in right toe(s) (ICD-10 - M79.674) 02/01/2024 Pain in left toe(s) (ICD-10 - M79.675) 11/14/2023 Pain in left toe(s) (ICD-10 - M79.675) 08/24/2023 Pain in right toe(s) (ICD-10 - M79.674) 11/14/2023 Pain in right toe(s) (ICD-10 - M79.674) 02/01/2024 Pain in right toe(s) (ICD-10 - M79.674) 06/25/2024 Pain in right toe(s) (ICD-10 - M79.674) Plan Of Treatment Pending Test Test Name Order Date *Liver Function Test (LFT) 06/15/2023 *Liver Function Test (LFT) 08/24/2023 Next Appt Details Provider Name:Lisa brown, 09/01/2024 02:00:00 PM, [address] [place] [address] Wil[place], [place], [address], Insurance Providers Payer Name Payer Address Payer Phone Subscriber Number Group Number Insured Name Patient Relationship to Insured Coverage Start Date Coverage End Date Medicare [employer] [address] [place] [address] [phone] [id number] Kathleen Barrios Self - patient is the insured for Life [address] [place] [address] [id number] Kathleen Barrios Self - patient is the insured Medical (General) History Medical History History ICD Code Anemia Anxiety Arthritis CAD (Cholesterol) Depression Lung disease Multiple sclerosis Measles Mumps Chicken pox Joint implants/screws Surgical History Surgery Date(Month/Year) knee replacement 06/2020 back surgery 2001 tubal ligation 1986
--- OUTSIDE RECORDS SUMMARY | 2024-07-23 10:05 | XMS_ITS | Continuity of Care Document ---
Author Name [facility] Organization [facility] Care Team Providers Care Wool Washer Name Role Phone [facility] Unavailable Unavailable Medications Combined list of outpatient medications from Department of Defense and Veterans Affairs facilities.Medications provided include 1) outpatient medications from the last 15 months, and 2) patient-reported medications. Medication Details Route Status Patient Instructions Prescription Expires Prescription Number Last Dispense Date Ordering Provider Order Date Order Qty Source ARIPIPRAZOL E (aripiprazo le), 30 MG, TABLET, ORAL, [facility], 30 ea. BOTTLE Active [id number] 2023 30 Pharmac y Data Transac tion Service Facilit y ARIPIPRAZOL E (aripiprazo le), 30 MG, TABLET, ORAL, [facility], 30 ea. BOTTLE Active [id number] 4 2023 30 Pharmac y Data Transac tion Service Facilit y ARIPIPRAZOL E (aripiprazo le), 30 MG, TABLET, ORAL, [facility], 30 ea. BOTTLE Active [id number] 2023 30 Pharmac y Data Transac tion Service Facilit y ARIPIPRAZOL E (aripiprazo le), 30 MG, TABLET, ORAL, [facility], 30 ea. BOTTLE Active [id number] 2023 30 Pharmac y Data Transac tion Service Facilit y CARISOPRODO L (carisoprod ol), 350 MG, TABLET, ORAL, [facility], 100 ea. BOTTLE Active [id number] 2023 90 Pharmac y Data Transac tion Service Facilit y CARISOPRODO L (carisoprod ol), 350 MG, TABLET, ORAL, [facility], 100 ea. BOTTLE Active [id number] 2023 90 Pharmac y Data Transac tion Service Facilit y CARISOPRODO L (carisoprod ol), 350 MG, TABLET, ORAL, [facility], 100 ea. BOTTLE Active [id number] 2023 90 Pharmac y Data Transac tion Service Facilit y CARISOPRODO L (carisoprod ol), 350 MG, TABLET, ORAL, [facility], 100 ea. BOTTLE Active [id number] 2023 90 Pharmac y Data Transac tion Service Facilit y CHLORHEXIDI NE GLUCONATE (chlorhexid ine gluconate), 0.12 %, MOUTHWASH, MUCOUS MEM, DASH/NATCO PHAR, 15 ml CUP Cancele d [id number] : 2023 0 Pharmac y Data Transac tion Service Facilit y GABAPENTIN (GABAPENTIN ), 600 MG, TABLET, ORAL, [facility], 500 ea. BOTTLE Active [id number] 2023 90 Pharmac y Data Transac tion Service Facilit y GABAPENTIN (GABAPENTIN ), 600 MG, TABLET, ORAL, [facility], 500 ea. BOTTLE Active [id number] 2023 90 Pharmac y Data Transac tion Service Facilit y GABAPENTIN (GABAPENTIN ), 600 MG, TABLET, ORAL, [facility], 500 ea. BOTTLE Active [id number] 4 2023 90 Pharmac y Data Transac tion Service Facilit y GABAPENTIN (gabapentin ), 600 MG, TABLET, ORAL, [facility], 500 ea. BOTTLE Cancele d [id number] : 2023 0 Pharmac y Data Transac tion Service Facilit y LORAZEPAM (lorazepam) , 1 MG, TABLET, ORAL, [facility], 100 ea. BOTTLE Active [id number] 2023 60 Pharmac y Data Transac tion Service Facilit y LORAZEPAM (lorazepam) , 1 MG, TABLET, ORAL, [facility], 100 ea. BOTTLE Active [id number] 2023 60 Pharmac y Data Transac tion Service Facilit y LORAZEPAM (lorazepam) , 1 MG, TABLET, ORAL, [facility], 100 ea. BOTTLE Active [id number] 2023 60 Pharmac y Data Transac tion Service Facilit y LORAZEPAM (lorazepam) , 1 MG, TABLET, ORAL, [facility], 100 ea. BOTTLE Active [id number] 4 2023 60 Pharmac y Data Transac tion Service Facilit y LORAZEPAM (lorazepam) , 1 MG, TABLET, ORAL, [facility]ARMA, 100 ea. BOTTLE Active [id number] 2023 60 Pharmac y Data Transac tion Service Facilit y LORAZEPAM (lorazepam) , 1 MG, TABLET, ORAL, [facility], 100 ea. BOTTLE Active [id number] 2023 60 Pharmac y Data Transac tion Service Facilit y MIRTAZAPINE (MIRTAZAPIN E), 45 MG, TABLET, ORAL, [facility], 30 ea. BOTTLE Active [id number] 2023 30 Pharmac y Data Transac tion Service Facilit y MIRTAZAPINE (MIRTAZAPIN E), 45 MG, TABLET, ORAL, [facility], 30 ea. BOTTLE Active [id number] 2023 30 Pharmac y Data Transac tion Service Facilit y MIRTAZAPINE (MIRTAZAPIN E), 45 MG, TABLET, ORAL, [facility], 30 ea. BOTTLE Active [id number] 2023 30 Pharmac y Data Transac tion Service Facilit y MIRTAZAPINE (MIRTAZAPIN E), 45 MG, TABLET, ORAL, [facility], 30 ea. BOTTLE Active [id number] 2023 30 Pharmac y Data Transac tion Service Facilit y MIRTAZAPINE (MIRTAZAPIN E), 45 MG, TABLET, ORAL, [facility], 30 ea. BOTTLE Active [id number] 2023 30 Pharmac y Data Transac tion Service Facilit y MIRTAZAPINE (MIRTAZAPIN E), 45 MG, TABLET, ORAL, [facility], 30 ea. BOTTLE Active [id number] 2023 30 Pharmac y Data Transac tion Service Facilit y MONTELUKAST SODIUM (MONTELUKAS T SODIUM), 10 MG, TABLET, ORAL, [facility], 90 ea. BOTTLE Active [id number] 2023 90 Pharmac y Data Transac tion Service Facilit y MONTELUKAST SODIUM (MONTELUKAS T SODIUM), 10 MG, TABLET, ORAL, [facility], 90 ea. BOTTLE Active [id number] 2023 90 Pharmac y Data Transac tion Service Facilit y PRAMIPEXOLE DIHYDROCHLO RIDE (pramipexol e di-HCl), 0.5 MG, TABLET, ORAL, [facility], 90 ea. BOTTLE Cancele d [id number] : 2023 0 Pharmac y Data Transac tion Service Facilit y PRAMIPEXOLE DIHYDROCHLO RIDE (pramipexol e di-HCl), 0.5 MG, TABLET, ORAL, [facility], 90 ea. BOTTLE Active [id number] 2023 90 Pharmac y Data Transac tion Service Facilit y PRAMIPEXOLE DIHYDROCHLO RIDE (pramipexol e di-HCl), 0.5 MG, TABLET, ORAL, [facility], 90 ea. BOTTLE Active [id number] 2023 90 Pharmac y Data Transac tion Service Facilit y PRAMIPEXOLE DIHYDROCHLO RIDE (pramipexol e di-HCl), 0.5 MG, TABLET, ORAL, [facility], 90 ea. BOTTLE Active [id number] 2023 60 Pharmac y Data Transac tion Service Facilit y PRAMIPEXOLE DIHYDROCHLO RIDE (pramipexol e di-HCl), 0.5 MG, TABLET, ORAL, [facility], 90 ea. BOTTLE Active [id number] 4 2023 60 Pharmac y Data Transac tion Service Facilit y PRAMIPEXOLE DIHYDROCHLO RIDE (pramipexol e di-HCl), 0.5 MG, TABLET, ORAL, [facility], 90 ea. BOTTLE Active [id number] 2023 60 Pharmac y Data Transac tion Service Facilit y ROSUVASTATI N CALCIUM (rosuvastat in calcium), 10 MG, TABLET, ORAL, [facility], 90 ea. BOTTLE Active [id number] 4 2023 90 Pharmac y Data Transac tion Service Facilit y ROSUVASTATI N CALCIUM (rosuvastat in calcium), 10 MG, TABLET, ORAL, [facility], 90 ea. BOTTLE Active [id number] 2023 90 Pharmac y Data Transac tion Service Facilit y TERBINAFINE HCL (TERBINAFIN E HCL), 250 MG, TABLET, ORAL, BRECKENRIDG E, 100 ea. BOTTLE Cancele d [id number] : 2023 0 Pharmac y Data Transac tion Service Facilit y TRINTELLIX (vortioxeti ne hydrobromid e), 20 MG, TABLET, ORAL, [facility], 30 ea. BOTTLE Active [id number] 2023 30 Pharmac y Data Transac tion Service Facilit y TRINTELLIX (vortioxeti ne hydrobromid e), 20 MG, TABLET, ORAL, [facility], 30 ea. BOTTLE Active [id number] 2023 30 Pharmac y Data Transac tion Service Facilit y TRINTELLIX (vortioxeti ne hydrobromid e), 20 MG, TABLET, ORAL, [facility], 30 ea. BOTTLE Active [id number] 2023 30 Pharmac y Data Transac tion Service Facilit y TRINTELLIX (vortioxeti ne hydrobromid e), 20 MG, TABLET, ORAL, [facility], 30 ea. BOTTLE Active [id number] 2023 30 Pharmac y Data Transac tion Service Facilit y TRINTELLIX (vortioxeti ne hydrobromid e), 20 MG, TABLET, ORAL, [facility], 30 ea. BOTTLE Active [id number] 2023 30 Pharmac y Data Transac tion Service Facilit y TRINTELLIX (vortioxeti ne hydrobromid e), 20 MG, TABLET, ORAL, [facility], 30 ea. BOTTLE Active [id number] 2023 30 Pharmac y Data Transac tion Service Facilit y Immunizations Combined list of available immunizations from the Department of Defense and Veterans Affairs facilities. Immunization Series Date Given Administered By Site Reaction Lot Number CVX Code Drug Skiver Hand Status Comments Source COVID-19, mRNA, LNP-S, PF, 30 mcg/0.3 mL dose 2020 CONNELLIsoflux [place] (PFR) Not Given COVID-19, mRNA, LNP-S, PF, 30 mcg/0.3 mL dose DoD influenza, injectable, quadrivalent, preservative free 2020 BOGDASARIAN, () Not Given influenza , injectabl e, quadrival ent, preservat betsy free DoD Pneumococcal conjugate PCV 13 2019 KHATAK, () Not Given Pneumococ angy conjugate PCV 13 DoD influenza, injectable, quadrivalent, preservative free 2019 BOGDASARIAN, () Not Given influenza , injectabl e, quadrival ent, preservat betsy free DoD zoster recombinant 2019 BOGDASARIAN, () Not Given zoster recombina nt DoD influenza, injectable, quadrivalent, preservative free 2018 BOGDASARIAN, () Not Given influenza , injectabl e, quadrival ent, preservat betsy free DoD zoster recombinant 2017 Donna HARVEY () Not Given zoster recombina nt DoD zoster recombinant 2017 Donna HARVEY () Not Given zoster recombina nt DoD Influenza, seasonal, injectable, preservative free 2016 Donna HARVEY () Not Given Influenza , seasonal, injectabl e, preservat betsy free DoD Influenza, seasonal, injectable, preservative free 2015 ANNABELLE SIERRA () Not Given Influenza , seasonal, injectabl e, preservat betsy free DoD influenza, injectable, quadrivalent, preservative free 2015 ANNABELLE SIERRA () Not Given influenza , injectabl e, quadrival ent, preservat betsy free DoD influenza, injectable, quadrivalent, preservative free 2015 MARIELAANNABELLE () Not Given influenza , injectabl e, quadrival ent, preservat betsy free DoD pneumococcal polysaccharid e PPV23 2014 MARIELAANNABELLE () Not Given pneumococ angy polysacch aride PPV23 DoD Social History Combined list of available smoking, tobacco, and other social history from Department of Defense and Veterans Affairs facilities. Social History Type Response Date Comment Sourc e This section is an empty social history section. DoD
--- OUTSIDE RECORDS SUMMARY | 2024-07-23 10:05 | XMS_ITS ---
Author Organization [facility] Address [address] [place] [address] Care Team Providers Care Pug Mill Operator Name Role Phone Harshad CRAMER, [place] Primary Care Provider Unava ilable Lisa Liu Unavailable [phone] REASON FOR VISIT cream Encounters Encounter Location Date Provider Diagnosis [facility] [address] [place] [address] 06/25/2024 Lisa Liu Plan Of Treatment Next Appt Details Provider Name:Lisa brown, 09/01/2024 02:00:00 PM, [address] [facility], [place], [address], Progress Notes * Kathleen REDDING MDOB:1955 ( 69 yo F)Acc No.[id number]:06/25/2024 Patient:?Kathleen REDDING :1955???Age:69 Y???Sex:Female Address:[address] [place], [address] * true * Date:? Generated for Printi ng/Fachetnag/eTransmitting on:?07/23/2024 10:05 AM EDT
--- OUTSIDE RECORDS SUMMARY | 2024-07-23 10:05 | XMS_ITS ---
[facility] Address [address] [place] [address] Care Team Providers Care Production Mechanic Tin Cans Name Role Phone Harshad CRAMER, [place] Primary Care Provider UnaLisa Lazaro Unavailable [phone] Allergies No Known Allergies REASON FOR VISIT Fungal Nails Medications Medication SIG (Take, Route, Frequency, Duration) Notes Start Date End Date Status SOLU-Medrol 2 GM as directed Injection 2023 Not-Taking Carisoprodol 350 MG Oral for 30 Days Active Pramipexole Dihydrochloride 0.5 MG 1 tablet Orally Once a day Active Ciclopirox 0.77 % 1 application Externally Twice a day for 365 days Active LamISIL 250mg 1 Tablet orally Once a day for 90 days 06/25/2023 Not-Taking Mirtazapine 45 MG Oral for 30 Days Active Rosuvastatin Calcium 10 MG TAKE ONE TABL ET BY MOUTH AT BEDTIME Oral for 90 Days Active Montelukast Sodium 10 MG Oral for 90 Days Active Albuterol Sulfate HFA 108 (90 Base) MCG/ACT Inhalation for 17 Days Active LORazepam 1 MG Oral for 30 Days Active Soma 350 MG 1 tablet as needed Orally Four times a day Active Gabapentin 600 MG TAKE ONE TABLET BY MOUTH THREE TIMES A DAY Oral for 30 Days Active Abilify 30 MG 1 tablet Orally Once a day Active Social History Tobacco Use: Social History Observation Description Date Details (start date - stop date) Former Smoker NA - NA Tobacco Use/Smoking Question Answer Notes Are you a: former smoker Additional Findings: Tobacco Non-User Current no n-smoker Tobacco use other than smoking: Question Answer Notes Are you an other tobacco user? No Vital Signs Height 5ft3in in 04/15/2024 Weight 160 lbs 04/15/2024 BMI 28.34 kg/m2 04/15/2024 Blood pressure systolic 120 mm Hg 04/15/20 24 Blood pressure diastolic 86 mm Hg 024 Encounters Encounter Location Date Provider Diagnosis [facility] [address] [place] [address] 04/15/2024 Lisa Liu Fungal infection of nail B35.1 ; Pain in left toe(s) M79.675 and Pain in right toe(s) M79.674 Assessments Encounter Date Diagnosis (ICD Code) Assessment Notes Treatment Notes Treatment Clinical Notes Section Notes 04/15/2024 Fungal infection of nail (ICD-10 - B35.1) 04/15/2024 Pain in left toe(s) (ICD-10 - M79.675) 04/15/2024 Pain in right toe(s) (ICD-10 - M79.674) Plan Of Treatment Next Appt Details Follow Up: 2 Months, Reason: Provider Name:Lisa brown, 09/01/2024 02:00:00 PM, [address] [facility], [place], [address], Procedure Notes * Category Sub-Category Detail Notes Debride Nail 6-10 Nail debridement Performance o f this nail treatment by a nonprofessional would put this patients foot and overall health at risk. Therefore, nail debridement was performed extensively to reduce/remove overall nail length, girth, thickness, subungual debris, and necrotic tissue, by manual and/or electrical means through the use of a nail nipper and/or dremel-type lens grinder rough, to a more viable healthy nail plate or bed tissue 6-10. Silver nitrate used for any petechial bleeding as necessary. Definitive antifungal treatment options have been reviewed and discussed with the patient. , to continue use of a topical antifungal Progress Notes * Kathleen BARRIOS MDOB:1955 ( 69 yo F)Acc No.[id number]:04/15/2024 Progress Note Patient:?Kathleen BARRIOS Provider:?Lisa Liu DPM :1955???Age:69 Y???Sex:Female D ate:04/15/2024 Address:[address] [place] [address], [address], [id number] Pcp:Sreedhar Patricia MD Subjective: * Chief Complaints: * ???Fungal Nails * HPI: ???Painful Nails:?Pt States Last PCP Visit:?Date:?12/24/2023 ?Nature:?aching, tender, discolored, thick.?Onset/Cause:?nail salon.?Course:?improved.?Aggravated by:?shoegear causing difficulty standing/walking.?Treatments:?Coclopirox topical gel relates adherence to recom tx Oral Antifungal Lamisil.? * ROS:?General/Constitutional:?Nausea?denies.?Vomiting?denies.?Hunger Thirst?denies.?Loss appetite?denies.?Chills?denies.?Fatigue?denies.?Fever?denies.?Night Sweats?denies.?Unexplained weight loss?denies.?Unexplained weight gain?denies.?HEENTM:?Dentures?admits.?Dizziness?denies.?Glasses/contacts?admits.?Retinopathy?de nies.?Blurred/double vision?denies.?TMJ?denies.?Discharge/drainage?denies.?Implants?denies.?Sore throat?denies.?Dental implants?denies.?Hard of hearing ?denies.?Difficulty chewing/swallowing/speaking?denies.?Nose bleeds?denies.?Sore mouth?denies.?Respiratory:?On Oxygen?denies.?Pneumonia/pleurisy?admits.?Bronchitis?admits.?Emphysema?admits.?C oughing?denies.?Cough blood?denies.?Shortness of breath?denies.?Wheezing?denies.?Cardiovascular:?Pacemaker?denies.?MVP?denies.?WPW?denies.?CHF?denies.?Heart attack?denies.?Septal defect?denies.?Rapid beat?denies.?Chest pain ?denies.?Atrial Fib.?denies.?Murmur/Palpitations?denies.?Gastrointestinal:?Hemorrhoids?denies.?Stomach/Abdominal pain?denies.?Dark blood stool?denies.?Irritable bowel ?denies.?Constipation?denies.?Diarrhea?denies.?Hematology:?Swelling?denies.?Clots?denies.?Varicose Veins?denies.?Bruising?denies.?Bleeding problem?denies.?Genitourinary:?Blood urine?denies.?Frequent/Painfu/urination/bladder control?denies.?Kidney stones?denies.?Infection (UTI)?denies.?Nephropathy?denies.?sex trans dis (STD)?denies.?Prostate?denies.?Musculoskeletal:?Hammertoes?denies.?Bunions?denies.?Back Pain?denies.?Muscle Cramps/ Resting?denies.?Muscle cramps / walking?denies.?Generalized aches and pains?denies.?Weakness?denies.?Integ.:?Raines?denies.?Scars?admits.?Corns/calluses?denies.?Ingrown nails?denies.?Painful nails?denies.?Open Sores?denies.?Rashes?denies.?Neurologic:?Difficulty sleeping?denies.?Brain disorder?denies.?Numbness?denies.?Balance trouble?admits.?Confusion?denies.?Fainting/blackouts?denies.?Tingling?denies.?Tr emors?denies.? * Medical History:? * Surgical History:?knee repla cement ack surgery 2002tubal ligation 1985 * Hospitalization/Major Diagno stic Procedure:?Denies Past Hospitalization * Family History:?Mother: dece ased, diagnosed with Other malignant neoplasm of unspecified site, Diabetic - NIDDM.?Father: , diagnosed with Unspecified essential hypertension, Unspecified heart disease, Family history of arthritis.? * Social History:?Tobacco Use:?Tobacco Use/Smoking?Are you a:?former smoker ?Additional Findings: Tobacco Non-User?Current non-smoker ?Tobacco use other than smoking?Are you an other tobacco user??No * Medications:?TakingAbilify 3 0 MG Tablet 1 tablet Orally Once a day Soma 350 MG Tablet 1 tablet as needed Orally Four times a day Gabapentin 600 MG Tablet TAKE ONE TABLET BY MOUTH THREE TIMES A DAY Oral Albuterol Sulfate HFA 108 (90 Base) MCG/ACT Aerosol Solution Inhalation LORazepam 1 MG Tablet Oral Montelukast Sodium 10 MG Tablet Oral Mirtazapine 45 MG Tablet Oral Rosuvastatin Calcium 10 MG Tablet TAKE ONE TABLET BY MOUTH AT BEDTIME Oral Carisoprodol 350 MG Tablet Oral Pramipexole Dihydrochloride 0.5 MG Tablet 1 tablet Orally Once a day Ciclopirox 0.77 % Gel 1 application Externally Twice a day Taking Abilify 30 MG Tablet 1 tablet Orally Once a day Taking Soma 350 MG Tablet 1 tablet as needed Orally Four times a day Taking Gabapentin 600 MG Tablet TAKE ONE TABLET BY MOUTH THREE TIMES A DAY Oral Taking Albuterol Sulfate HFA 108 (90 Base) MCG/ACT Aerosol Solution Inhalation Taking LORazepam 1 MG Tablet Oral Taking Montelukast Sodium 10 MG Tablet Oral Taking Mirtazapine 45 MG Tablet Oral Taking Rosuvastatin Calcium 10 MG Tablet TAKE ONE TABLET BY MOUTH AT BEDTIME Oral Taking Carisoprodol 350 MG Tablet Oral Taking Pramipexole Dihydrochloride 0.5 MG Tablet 1 tablet Orally Once a day Taking Ciclopirox 0.77 % Gel 1 application Externally Twice a day Not-Taking/PRNLamISIL 250mg tablet 1 Tablet orally Once a day SOLU-Medrol 2 GM Solution Reconstituted as directed Injection Medication List reviewed and reconciled with the patientNot-Taking/PRN LamISIL 250mg tablet 1 Tablet orally Once a day Not-Taking/PRN SOLU-Medrol 2 GM Solution Reconstituted as directed Injection Medication List reviewed and reconciled with the patient * Allergies:?N.K.D.A.yes[Aller gies Verified] Objective: * Vitals:?Ht: 5ft3in, Wt:160, BMI:28.34, Shoe size: 8.5, BP:120/86mm Hg, Ht-cm: 160.02 cm, Wt-k.57 kg. * Examination: ???General Examination: ?GENERAL APPEARANCE:?Reveals a pleasant, alert, well-nourished, well- developed, well hydrated individual, who demonstrates proper attention to hygiene/body habitus, and is in no acute distress, Pt serves as own?historian for office visit today.?ORIENTED:?person, place, and time.?Neurological: ?SENSORY:?Neurological exam reveals intact sensorium, pain sensation normal, vibration sensation intact, pinprick sensation is normal in the lower extremities, Pt denies, anesthesia, burning, paresthesia, tingling, B/L.?DEEP TENDON REFLEXES:?Achilles, 2/4, B/L.?Vascular: ?DP PULSES(B):?3/4, B/L.?PT PULSES(B):?3/4, B/L.?CAPILLARY FILL TIME:?immediate, all digits, B/L.?TROPHIC CONDITION-TEXTURE/ELASTICITY/TURGOR/HAIR GROWTH(B):?normal, B/L.?TEMPERTURE GRADIENT(C):?warm to cool, proximal to distal, B/L.?PIGMENTATION:?normal, B/L.?EDEMA(C):?absent, B/L.?Dermatologic: ?SKIN FINDINGS:?Skin exam reveals normal texture, elasticity, and turgor. There are no masses. The interspaces are clear.?Orthopedic: ?MUSCLE STRENGTH:?5/5 all groups in a symmetrical fashion , B/L.?Nails: ?NAILS are:?Elongated, overgrown, dystrophic, lytic, greater than 3mm thick, discolored and friable with crumbly 7malodorous subungual debris, with pain on palpation 1-5 B/L , proximal clearing of nail 75 percent.? Assessment: * Assessment: 1.?Pain in left toe(s) - M79 .675???2.?Fungal infection of nail - B35.1 (Primary)???3.?Pain in right toe(s) - M79.674??? Plan: * Treatment: * Procedures:?Debride Nail 6-10:?Nail debridement?Performance of this nail treatment by a nonprofessional would put this patients foot and overall health at risk. Therefore, nail debridement was performed extensively to reduce/remove overall nail length, girth, thickness, subungual debris, and necrotic tissue, by manual and/or electrical means through the use of a nail nipper and/or dremel-type lens grinder rough, to a more viable healthy nail plate or bed tissue 6-10. Silver nitrate used for any petechial bleeding as necessary. Definitive antifungal treatment options have been reviewed and discussed with the patient. , to continue use of a topical antifungal.? * Procedure Codes:?69224 ERVINI DE NAIL, 6 OR MORE, Modifiers: XS * Follow Up:?2 Months * Images: * Sign off status: Completed true * Provider:?Lisa Liu, [place] Date:?07/2023 Generated for Susanna manzano/Lotus/Carline on:?07/23/2024 10:05 AM EDT History and Physical Notes * HPI (History of Present Illness) Category Sub-Category Detail Notes Category Not es Painful Nails Aggravated by: shoegear causing difficulty standing/walking Onset/Cause: nail salon Course: improved Nature: aching, tender, disc olored, thick Treatments: Coclopirox topical g el relates adherence to recom tx Oral Antifungal Lamisil Pt States Last PCP Visit: Date:: 12/24/2023 Examination Category Sub-Category Detail Notes Category Not es Neurological SENSORY: Neurological exa m reveals intact sensorium, pain sensation normal, vibration sensation intact, pinprick sensation is normal in the lower extremities, Pt denies, anesthesia, burning, paresthesia, tingling, B/L DEEP TENDON REFLEXES: Achilles, 2/4, B/L Dermatologic SKIN FINDINGS: Skin exam reveal s normal texture, elasticity, and turgor. There are no masses. The interspaces are clear Orthopedic MUSCLE STRENGTH: 5/5 all groups in a symm etrical fashion , B/L General Examination GENERAL APPEARANCE: Reveals a pleasant, alert, well- nourished, well-developed, well hydrated individual, who demonstrates proper attention to hygiene/body habitus, and is in no acute distress, Pt serves as own historian for office visit today ORIENTED: person, place, and t jono Vascular DP PULSES (B): 3/4, B/L PT PULSES (B): 3/4, B/L CAPILLARY FILL TIME: immediate, all digi ts, B/L TEMPERTURE GRADIENT (C): warm to cool, p roximal to distal, B/L TROPHIC CONDITION-TEXTURE/ELASTICITY/TURGOR/HAIR GROWTH (B): normal, B/L EDEMA (C): absent, B/L PIGMENTATION: normal, B/L Nails NAILS are: Elongated, overg rown, dystrophic, lytic, greater than 3mm thick, discolored and friable with crumbly 7malodorous subungual debris, with pain on palpation 1-5 B/L , proximal clearing of nail 75 percent
--- OUTSIDE RECORDS SUMMARY | 2024-07-23 10:06 | XMS_ITS ---
Author [facility] Address [address] [facility] [place] [address] Care Team Providers Care Ornamental Painter Name Role Phone Harshad CRAMER Sandgap Primary Care Provider UnaLisa Lazaro Unavailable [phone] Allergies No Known Allergies REASON FOR VISIT Fungal Nails, Skin Problem Medications Medication SIG (Take, Route, Frequency, Duration) Notes Start Date End Date Status SOLU-Medrol 2 GM as directed Injection 2023 Not-Taking Gabapentin 600 MG TAKE ONE TABLET BY MOUTH THREE TIMES A DAY Oral for 30 Days Active Abilify 30 MG 1 tablet Orally Once a day Active Soma 350 MG 1 tablet as needed Orally Four times a day Active Medrol Active Ciclopirox Olamine 0.77 % 1 application Externally Twice a day to skin of feet including between the toes for 30 days Active LamISIL 250mg 1 Tablet orally Once a day for 90 days 06/25/2023 Not-Taking Carisoprodol 350 MG Oral for 30 [...] AT BEDTIME Oral for 90 Days Active Social History Tobacco Use: Social History Observation Description Date Details (start date - stop date) Never Smoker NA - NA Tobacco use other than smoking: Question Answer Notes Are you an other tobacco user? No Tobacco Control (Standard) Question Answer Notes Tobacco use: Nonsmoker Vital Signs Height 5ft3in in 06/25/2024 Weight 165 lbs 06/25/2024 BMI 29.23 kg/m2 06/25/2024 Blood pressure systolic 120 mm Hg 06/25/19 25 Blood pressure diastolic 83 mm Hg 025 Encounters Encounter Location Date Provider Diagnosis [facility] [place] [address] [place] [address] 06/25/2024 Lisa Liu Fungal infection of nail B35.1 ; Tinea pedis of both feet B35.3 ; Pain in left toe(s) M79.675 and Pain in right toe(s) M79.674 Assessments Encounter Date Diagnosis (ICD Code) Assessment Notes Treatment Notes Treatment Clinical Notes Section Notes 06/25/2024 Fungal infection of nail (ICD-10 - B35.1) 06/25/2024 Tinea pedis of both feet (ICD-10 - B35.3) 06/25/2024 Pain in left toe(s) (ICD-10 - M79.675) 06/25/2024 Pain in right toe(s) (ICD-10 - M79.674) Plan Of Treatment Medication Medication Name Sig Start Date Stop Date Notes Ciclopirox Olamine 0.77 % 1 application Externally Twice a day to skin of feet including between the toes for 30 days Next Appt Details Follow Up: 2 Months, Reason: Provider Name:Lisa brown, 09/01/2024 02:00:00 PM, [address] [place], [address], Procedure Notes * Category Sub-Category Detail Notes Debride Nail 6-10 Nail debridement Due to the cl inical pathology outlined in the exam findings, performance of this nail treatment is medically necessary as its management by an unskilled/untrained nonprofessional would put this patients foot and overall health at risk. Therefore, debridement to affected nail(s), as described in exam ( TA, T1, T2, T3, T4, T5, T6, T7, T8, T9, ), was performed exclusively by the physician of record to reduce/remove overall nail length, girth, thickness, subungual debris, and necrotic tissue, by manual and/or electrical means through the use of a nail nipper and/or dremel-type coffee grinder, to a more viable healthy nail plate or bed tissue 6-10 nails in total. Silver nitrate was used for any petechial bleeding as necessary. Definitive antifungal treatment options, both pharmaceutical and surgical, have been reviewed and discussed with the patient. The patient solely prefers the use of intermittent/as needed professional debridement services for their nail condition and understands the need for additional periodic treatments to maintain effectiveness in symptomatic relief - 05913 Progress Notes * Kathleen BARRIOS MDOB:1955 ( 69 yo F)Acc No.[id number]:06/25/2024 Progress Note Patient:?BARRIOS Kathleen Gallo Provider:?Lisa Liu DPM :1955???Age:69 Y???Sex:Female D ate:06/25/2024 Address:[address] [place] [address], [address], [facility] Pcp:Sreedhar Patricia MD Subjective: * Chief Complaints: * ???Fungal NailsSkin Problem * HPI: ???Painful Nails:?Pt States Last PCP Visit:?Date:?04/13/2024 ???Skin problems:?Nature:?dryness, scaling.?Location:?B/L.?Course:?worse.? * ROS:?General/Constitutional:?Nausea?denies.?Vomiting?denies.?Hunger Thirst?denies.?Loss appetite?denies.?Chills?denies.?Fatigue?denies.?Fever?denies.?Night Sweats?denies.?Unexplained weight loss?denies.?Unexplained [...] history of arthritis.? * Social History:?Tobacco Use:?Tobacco use other than smoking?Are you an other tobacco user??No ?Tobacco Control (Standard)?Tobacco use:?Nonsmoker ???Miscellaneous:?Caffeine: yes, frequency:, 1-2 cups per day. ?Children: yes, 2. ?Exercise: yes, walking. ?Marital status: . 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 * Medications:?TakingMedrol Ab ilify 30 MG Tablet 1 tablet Orally Once [...] 1 application Externally Twice a day Taking Medrol Taking Abilify 30 MG Tablet 1 tablet [...] tablet 1 Tablet orally Once a day Not- Taking/PRN SOLU-Medrol 2 GM Solution Reconstituted as directed Injection Medication List reviewed and reconciled with the patient * Allergies:?N.K.D.A.yes[Aller gisusana Verified] Objective: * Vitals:?Ht: 5ft3in, Wt:165, BMI:29.23, Shoe size: 8.5, BP:120/83mm Hg, Ht-cm: 160.02 cm, Wt-k.84 kg. * Examination: ???General Examination: ?GENERAL APPEARANCE:?Reveals [...] tingling, B/L.?DEEP TENDON REFLEXES:?Achilles, 2/4, B/L.?Vascular: ?DP PULSES (B):?3/4, B/L.?PT PULSES (B):?3/4, B/L.?CAPILLARY FILL TIME:?immediate, all digits, B/L.?TROPHIC CONDITION-TEXTURE/ELASTICITY/TURGOR/HAIR GROWTH (B):?normal, B/L.?TEMPERTURE GRADIENT (C):?warm to cool, proximal to distal, B/L.?PIGMENTATION:?normal, B/L.?EDEMA (C):?absent, B/L.?Dermatologic: ?SKIN FINDINGS:?Skin shows sign(s) of, erythema, scaling, in a moccasin fashion, no fissure(s) present, B/L.?Orthopedic: ?MUSCLE STRENGTH:?5/5 all groups in a symmetrical fashion , B/L.?Nails: ?NAILS are:?Elongated, overgrown, dystrophic, lytic, greater than 3mm thick, discolored and friable with crumbly 7malodorous subungual debris, with pain on palpation , TA, T1, T2, T3, T4, T5, T6, T7, T8, T9; , TA, T1, T2, T3, T6, T7, proximal clearing of nail approximately 75 percent; remaining nails less nail clearing.? Assessment: * Assessment: 1.?Tinea pedis of both feet - B35.3 (Primary)???Specify :Acute problem, Uncomplicated (3),Rx drug management (4)???2.?Fungal infection of nail - B35.1???3.?Pain in left toe(s) - M79.675???4.?Pain in right toe(s) - M79.674??? Plan: * Treatment: * Procedures:?Debride Nail 6-10:?Nail debridement?Due to the clinical pathology outlined in the exam findings, performance of this nail treatment is medically necessary as its management by an unskilled/untrained nonprofessional would put this patients foot and overall health at risk. Therefore, debridement to affected nail(s), as described in exam ( TA, T1, T2, T3, T4, T5, T6, T7, T8, T9, ), was performed exclusively by the physician of record to reduce/remove overall nail length, girth, thickness, subungual debris, and necrotic tissue, by manual and/or electrical means through the use of a nail nipper and/or dremel-type coffee grinder, to a more viable healthy nail plate or bed tissue 6- 10 nails in total. Silver nitrate was used for any petechial bleeding as necessary. Definitive antifungal treatment options, both pharmaceutical and surgical, have been reviewed and discussed with the patient. The patient solely prefers the use of intermittent/as needed professional debridement services for their nail condition and understands the need for additional periodic treatments to maintain effectiveness in symptomatic relief - 83846.? * Procedure Codes:?49237 DEBRI DE NAIL, 6 OR MORE, Modifiers: XS * Preventive Medicine:? ??Counseling:?Discussion:?-13: Office or other outpatient visit for the evaluation and management of an established patient, which required a medically appropriate history and/or examination and LOW level of DECISION MAKING for: 1 STABLE ACUTE UNCOMPLICATED PROBLEM, 2 OR MORE MINOR PROBLEMS, OR 1 STABLE CHRONIC PROBLEM, THAT POSE(S) A LOW RISK FOR MORBIDITY/MORTALITY. The visit on the day of the encounter encompassed interpreting the data and educating the patient as to the nature of their condition, treatment options available according to their individual PMH, meds, allergies, and overall health/living conditions, as well as any potential risks or complications that may occur from a failure to adhere to, and participate in, the recommended course of therapy. The discussion included a complete verbal, and/or written explanation of the examination results, any x-rays taken, the proposed diagnosis, and outline of the treatment plan. A schedule for future care needs was also explained. The patient verbalized an understanding of the instructions at this time and agreed to be an active participant in their treatment. If the patient should think of any questions or concerns after the visit, I have encouraged the patient to call the office.?Tinea Pedis:?The patient was counseled on the diagnosis, potential etiologies, and treatment options for their skin condition. We discussed the risks and benefits of each option from performing no treatment, to utilizing OTC topical skin creams, prescription topical creams, customized compounded topical medications, and, if necessary, to utilize oral antifungal therapy. We discussed the advantages and disadvantages of each possible treatment and importance for adherence to all the recommended therapies for optimum success and avoid potential complications such as open sore/infection/possible hospitalization. We discussed the potential effectiveness of each topical preparation as well as each ones possible side effects and/or patient medication interactions if oral therapy is selected. Patient questions re: the advantages and disadvantages of each treatment choice, medication use/dosage, successful outcomes, and application consistency were reviewed and the patient verbalized that all answers were clearly understood. The patient was told they can help alleviate symptoms by utilizing moisture absorbant innersoles with activated charcoal and baking soda, applying antifungal sprays daily, aerating toe web spaces at night by putting cotton or lambs wool between the toes, alternating shoe gear daily if possible so they can dry out, changing socks at least once during the day, wearing well-ventilated shoes or sandals. The patient has decided to apply antifungal skin creams to their feet as directed. Rx was sent to their pharmacy at the time of visit.? ??Screening/Special Tests:?Fall Risk?Screening:?No falls in the past year ?FALLS: Screening for Future Fall Risk?Have you had any falls with injury in the past year??No * Follow Up:?2 Months * Images: * Sign off status: Completed true * Provider:?Lisa Liu DPM Date:?04/2025 Generated for Susanna manzano/Lotus/Carline on:?07/23/2024 10:05 AM EDT History and Physical Notes * HPI (History of Present Illness) Category Sub-Category Detail Notes Category Not es Painful Nails Pt States Last PCP Visit: Date:: 04/13/2024 Skin problems Nature: dryness, scaling Location: B/L Course: worse Examination Category Sub-Category Detail Notes Category Not es Neurological SENSORY: Neurological exa m reveals intact sensorium, pain sensation normal, vibration sensation intact, pinprick sensation is normal in the lower extremities, Pt denies, anesthesia, burning, paresthesia, tingling, B/L DEEP TENDON REFLEXES: Achilles, 2/4, B/L Dermatologic SKIN FINDINGS: Skin shows sign( s) of, erythema, scaling, in a moccasin fashion, no fissure(s) present, B/L Orthopedic MUSCLE STRENGTH: 5/5 all groups in [...] 7malodorous subungual debris, with pain on palpation , TA, T1, T2, T3, T4, T5, T6, T7, T8, T9; , TA, T1, T2, T3, T6, T7, proximal clearing of nail approximately 75 percent; remaining nails less nail clearing
== END 2024-07-23 09:55 | disposition home or self-care (01) ==
LOC: HO.HMCH 09:17
PROVIDERS: PCP Internal Medicine
DX: J44.9 Chronic obstructive pulmonary disease, unspecified (principal); E78.00 Pure hypercholesterolemia, unspecified; F31.9 Bipolar disorder, unspecified; F41.9 Anxiety disorder, unspecified; M17.11 Unilateral primary osteoarthritis, right knee; E66.3 Overweight; D72.825 Bandemia

== ENCOUNTER → 2024-07-23 09:16 | Outpatient (BNVA) | payer MEDICARE, OTHER, SELFPAY | PROVIDERS: PCP Internal Medicine | DX: J44.9 Chronic obstructive pulmonary disease, unspecified (principal); E78.00 Pure hypercholesterolemia, unspecified; F31.9 Bipolar disorder, unspecified; F41.9 Anxiety disorder, unspecified; M17.11 Unilateral primary osteoarthritis, right knee; D72.825 Bandemia; E66.3 Overweight; Z68.29 Body mass index [BMI] 29.0-29.9, adult; Z71.3 Dietary counseling and surveillance | CPT/HCPCS: 96127; 99212 ==

== ENCOUNTER 2025-02-17 06:37 | Outpatient (REF) | payer MEDICARE, OTHER, SELFPAY ==
--- OUTSIDE RECORDS SUMMARY | 2024-09-01 10:00 | XMS_ITS ---
Author Organization [facility] Address [address] [place] [address] Care Team Providers Care Broiler Supervisor Name Role Phone Sreedhar Patricia MD Primary Care Provider Unava ilable Lisa Liu Unavailable [phone] Encounters Encounter Location Date Provider Diagnosis [address] [address] 09/01/2024 Lisa Liu Plan Of Treatment No Information Progress Notes * Kathleen BARRIOS MDOB:1955 ( 69 yo F)Acc No.[id number]:09/01/2024 Progress Note Patient: Kathleen LARRY Provider: Lucretia Liu DPM :1955 A ge:69 Y S ex:Female Date:09/01/2024 Address:[address], [address] [place] [place] Pcp:Sreedhar Patricia MD Subjective: * Chief Complaints: [...] 09/01/2024 Generated for Susanna manzano/Lotus/eTransmitting on: 1 06:41 AM EDT
--- OUTSIDE RECORDS SUMMARY | 2025-02-17 06:42 | XMS_ITS | Patient Health Record ---
Author Organization [facility] Address [address] [facility] [place] [facility] [place] [address] Care Team Providers Care Public Relations Analyst Name Role Phone Harshad CRAMER, [place] Primary Care Provider Lisa Siegel Unavailable [phone] Allergies No Known Allergies Reason For Referral No Information Medications Medication SIG (Take, Route, Frequency, Duration) Notes Start Date End Date Status Abilify 30 MG 1 tablet Orally Once a day Active LamISIL 250mg 1 Tablet orally Once a day; Duration: 90 days 06/25/2023 Not-Takin g Soma 350 MG 1 tablet as needed Orally Four times a day Active Rosuvastatin Calcium 10 MG TAKE ONE TABL ET BY MOUTH AT BEDTIME Oral; Duration: 90 Days Active Carisoprodol 350 MG Oral; Duration: 30 Days Active Pramipexole Dihydrochloride 0.5 MG 1 tablet Orally Once a day Active Medrol Active Ciclopirox 0.77 % 1 application Externally Twice a day; Duration: 365 days Active Albuterol Sulfate HFA 108 (90 Base) MCG/ACT Inhalation; Duration: 17 Days Active Ciclopirox Olamine 0.77 % 1 application Externally Twice a day to skin of feet including between the toes; Duration: 30 days Active LORazepam 1 MG Oral; Duration: 30 Days Active Montelukast Sodium 10 MG Oral; Duration: 90 Days Active Mirtazapine 45 MG Oral; Duration: 30 Days Active SOLU-Medrol 2 GM as directed Injection 2023 Not-Taking Gabapentin 600 MG TAKE ONE TABLET BY MOUTH THREE TIMES A DAY Oral; Duration: 30 Days Active Social History Tobacco Use: [...] 06/25/2024 Encounters Encounter Location Date Provider Diagnosis [address] [address] 04/15/2024 Lisa Perica Fungal infection of nail B35.1 ; Pain in left toe(s) M79.675 and Pain in right toe(s) M79.[address] [address] 06/25/2024 Lisa Perica Fungal infection of nail B35.1 ; Tinea pedis of both feet B35.3 ; Pain in left toe(s) M79.675 and Pain in right toe(s) M79.[address] [address] 06/25/2024 Lisa Perica [address] [address] 08/07/2024 Lisa Liu Assessments Encounter Date Diagnosis (ICD Code) Assessment Notes Treatment Notes Treatment Clinical Notes Section Notes 06/25/2024 Tinea pedis of both feet (ICD-10 - B35.3) 06/25/2024 Fungal infection of nail (ICD-10 - B35.1) 04/15/2024 Pain in left toe(s) (ICD-10 - M79.675) 04/15/2024 Fungal infection of nail (ICD-10 - B35.1) 04/15/2024 Pain in right toe(s) (ICD-10 - M79.674) 06/25/2024 Pain in left toe(s) (ICD-10 - M79.675) 06/25/2024 Pain in right toe(s) (ICD-10 - M79.674) Plan Of Treatment Pending Test Test Name Order Date *Liver Function Test (LFT) 08/24/2023 *Liver Function Test (LFT) 06/15/2023 Insurance Providers Payer Name Payer Address Payer Phone Subscriber Number Group Number Insured Name Patient Relationship to Insured Coverage Start Date Coverage End Date Medicare [employer] [address] [place] [address] [id number] Kathleen Barrios Self - patient is the insured for Life [address] [place] [address] [id number] Kathleen Barrios Self - patient is the insured Medical (General) History Medical History History ICD Code Anemia Anxiety Arthritis CAD (Cholesterol) Depression Lung disease Multiple sclerosis Measles Mumps Chicken pox Joint implants/screws Surgical History Surgery Date(Month/Year) knee replacement 06/2020 back surgery 2001 tubal ligation 1986
[2025-02-17 06:50] LABS: MANUAL DIFF FLAG NO
[2025-02-17 07:28] LABS: Hematocrit 40.5 % (37.0-47.0); Hemoglobin 13.0 g/dl (12.0-16.0); Imm Gran Abs Auto 0.01 X10*3/uL (0.00-0.03); Imm Gran Pct Auto 0.2 % (0.0-0.4); Lymphocytes Absolute Auto 2.4 X10*3/uL (1.2-4.9); Mean Corpuscular HGB Conc 32.1 g/dl (31.0-35.0); Mean Corpuscular Hemoglobin 28.4 pg (27.0-33.0); Mean Corpuscular Volume 88.4 fL (80.0-98.0); NRBC Abs Auto 0.000 X10*3/uL (0.0-0.012); NRBC Pct Auto 0.0 /100WBC (0.0-0.2); Platelet Count 196 X10*3/uL (160-400); Red Blood Count 4.58 X10*6/uL (4.20-5.50); White Blood Count 6.3 X10*3/uL (4.8-10.8)
[2025-02-17 07:39] LABS: Total Hemoglobin (HGBA1C) 3346.1239 umol/L
[2025-02-17 08:29] LABS: Alanine Aminotransferase 32 U/L (0-31); Albumin Level 4.3 g/dL (3.5-5.0); Alkaline Phosphatase 73 U/L (39-117); Anion Gap 13 (12-20); Aspartate Amino Transferase 29 U/L (5-31); Blood Urea Nitrogen 24 mg/dL (9-16); Calcium 9.1 mg/dL (8.4-10.2); Carbon Dioxide 27 mmol/L (22-29); Chloride 110 mmol/L (96-108); Cholesterol 145 mg/dL (<200); Estimated Glomerular Filt Rate > 60; HDL Cholesterol 55 mg/dL (>40); Potassium 4.0 mmol/L (3.3-5.1); Sodium 146 mmol/L (135-145); Total Protein 6.8 g/dL (6.5-8.0); Triglycerides 86 mg/dL (<150)
== END 2025-02-17 06:38 | disposition home or self-care (01) ==
LOC: HO.LAB 06:37
PROVIDERS: PCP Internal Medicine
DX: R73.01 Impaired fasting glucose (principal); K58.9 Irritable bowel syndrome, unspecified; J44.9 Chronic obstructive pulmonary disease, unspecified; E78.00 Pure hypercholesterolemia, unspecified; D64.9 Anemia, unspecified; E66.9 Obesity, unspecified; F41.9 Anxiety disorder, unspecified; F31.9 Bipolar disorder, unspecified
CPT/HCPCS: 36415; 80053; 80061; 82306; 83036; 84443; 85025

== ENCOUNTER 2025-02-24 12:53 | Outpatient (AMB) | payer MEDICARE, OTHER, SELFPAY ==
--- OUTSIDE RECORDS SUMMARY | 2024-09-01 10:00 | XMS_ITS ---
Author Organization [facility] Address [address] [place] [address] Care Team Providers Care Principal Quality Engineer Name Role Phone Sreedhar Patricia MD Primary Care Provider Unava ilable Lisa Liu Unavailable [phone] Encounters Encounter Location Date Provider Diagnosis [address] [address] 09/01/2024 Lisa Liu Plan Of Treatment No Information Progress Notes * Kathleen BARRIOS MDOB:1955 ( 69 yo F)Acc No.[id number]:09/01/2024 Progress Note Patient: Kathleen LARRY Provider: Lucretia Liu DPM :1955 A ge:69 Y S ex:Female Date:09/01/2024 Address:[address], [place] [place] Pcp:Sreedhar Patricia MD Subjective: * Chief Complaints: [...] 09/01/2024 Generated for Susanna manzano/Lotus/eTransmitting on: 1 03:33 PM EDT
--- NOTE | 2025-02-24 12:57 | MHC.PC.OV ---
Vital Signs 02/24/25 12:59 Height 5 ft 3 in Weight 170 lb 6 oz BMI 30.2 BP 130/68 Blood Pressure Location Lt brachial Position Sitting Pulse 70 Pulse Source Pulse Oximeter Temp 97.3 F Temp Source Temporal Artery Scan Pulse Oximetry (%) 96 Oxygen Delivery Method Room Air Intake Visit Reasons: Htn/anemia/bipolar Intake Note: Patient is here to follow up on HTN, Anemia, Bipolar. Brand Engineer Required: No Appeals Referee: Not Required per policy Accompanied by: Self / Same As Patient Allergies codeine (Codeine) Adverse Reaction (Mild, Verified 02/24/25 13:38) UPSET STOMACH AND BAD DREAMS Medication List - Last Reconciled 02/24/25 by Sreedhar Patricia MD albuterol sulfate 90 mcg/actuation 2 puffs inhalation Q4-6H PRN aripiprazole (Abilify) 30 mg PO DAILY buspirone 5 mg PO DAILY carisoprodol 350 mg PO TID gabapentin 600 mg PO TID lorazepam 1 mg PO BID mirtazapine 45 mg PO BEDTIME montelukast 10 mg PO DAILY pramipexole 0.5 mg orally 1 tab in the afternoon and 2 tabs in the evening; 30 days rosuvastatin 10 mg PO BEDTIME 90 days [solu medrol IV IV .once a month] vortioxetine (Trintellix) 20 mg PO DAILY Tobacco use date assessed: 02/24/25 Fall risk assessment: 1 Fall in past year Last assessed Fall Risk: 02/24/25 Dental Screening Dental Screen Date: 07/23/24 HPI Htn/anemia/bipolar HPI Details Patient comes in today for her follow up visit States that she feels okay She denies any headaches or dizziness Denies any chest pains, no increased SOB No nausea/vomiting, no abdominal pain No change in bowel habits noted She continues to see her psychiatrist regularly every 6 weeks for follow up - states that her depression remains well-controlled on her current med/regimen but she is now also on Buspirone additionally for her anxiety Needs a couple of her Rx refilled today She had her follow up labs done last week - to discuss her results She would also like to get her flu shot today PFSH Medical History Restless leg syndrome Anemia Obesity (BMI 30-39.9) Primary osteoarthritis of right knee Anxiety Bipolar depression Irritable bowel syndrome (IBS) Multiple sclerosis Chronic obstructive pulmonary disease (COPD) Normal colonoscopy Pure hypercholesterolemia Surgical History Hx of colonoscopy Hx of arthroscopic knee surgery History of tubal ligation H/O knee surgery History of back surgery Family History Mother Lung cancer, Onset Age: 56 Father Heart problem Social History Housing: Apartment Are you a primary progressive care nurse to a significant other at home: No Do you presently have visiting nurse or other home services: No Alcohol intake: never Patient Tobacco Use Status: Former Tobacco user Tobacco use type: Cigarette e-Cigarette/Vaping Use: Never Used Second Hand Smoke Exposure: Yes service: No Current occupational status: retired 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 Cognitive needs: No Hearing needs: No Vision needs: Yes Questionnaire PHQ-9 Over the last 2 weeks, how often have you been bothered by any of the following problems? 1. Little interest or pleasure in doing things: not at all 2. Feeling down, depressed, or hopeless: not at all 3. Trouble falling or staying asleep, or sleeping too much: several days 4. Feeling tired or having little energy: several days 5. Poor appetite or overeating: more than half the days 6. Feeling bad about yourself - or that you are a failure or have let yourself or your family down: not at all 7. Trouble concentrating on things, such as reading the newspaper or watching television: not at all 8. Moving or speaking so slowly that other people could have noticed. Or the opposite - being so fidgety or restless that you have been moving around a lot more than usual: not at all 9. Thoughts that you would be better off or of hurting yourself in some way: not at all Total score: 4 Depression Screening Interpretation: Positive Depression Screening Follow-up: Existing condition and In treatment Depression Screening Done: Yes 46666 - PHQ-9 Billing: Yes Source: Developed by Drs. Harris Mcleod, Rakel Neel Tyson and colleagues, with an educational bill from [employer]. Thrive Questionnaire Date Thrive assessed: 02/24/25 I am a: Patient What is your living situation today?: I have a steady place to live Within the past 12 months, did the food you bought not last and you didn't have the money to get more?: Never true Within the past 12 months, did you worry whether your food would run out before you got money to buy more?: Never true Do you have trouble paying for medicines?: No Do you have trouble getting transportation to medical appointments?: No Do you have trouble paying your heating and electricity bill?: No Do you have trouble taking care of your child, family member or friend?: No Do you have trouble with day-to-day activities such as bathing, preparing meals, shopping, managing finances, etc.?: No Are you currently unemployed and looking for a job?: No Are you interested in more education?: No Please select the resources that you would like help with: None Currently or been in a relationship where the following occur: No concerns reported THRIVE Score: 0 AUDIT C Alcohol Use Questionnaire (AUDIT-C) 1. How often do you have a drink containing alcohol?: Never Total Score: 0 Score Reviewed/Action Taken: Yes ANDREINA-7 AMB Questionnaire ANDREINA-7 Date ANDREINA - 7 assessed: 07/23/24 Feeling nervous, anxious, or on edge: 1 = Several days Not being able to stop or control worryin = Several days Worrying too much about different things: 1 = Several days Trouble relaxin = Not at all Being so restless that it is hard to sit still: 0 = Not at all Becoming easily annoyed or irritable: 0 = Not at all Feeling afraid as if something awful might happen: 0 = Not at all Total ANDREINA-7 score (0-4 normal; 5-9 mild; 10-14 moderate; 15-21 severe): 3 Source: Developed by Drs. Harris Mcleod, Neel Navarro and colleagues, with an educational bill from [employer]. Review of Systems Const Denies chills, Reports fatigue, Denies fever(s), Denies headache(s) and Reports weakness (at times, from her MS) Eyes Denies diplopia ENT Denies dysphagia, Denies dizziness, Denies otalgia, Denies headache(s), Denies neck pain, Denies odynophagia and Denies sore throat Card Denies chest pain, Denies rapid heart rate, Denies palpitations and Reports dyspnea on exertion (mild,at times ) Resp Denies chest congestion, Denies cough and Reports dyspnea on exertion (mild,at times ) GI Denies abdominal pain, Denies constipation, Denies dysphagia, Denies heartburn, Denies diarrhea, Denies odynophagia and Denies vomiting Denies difficulty voiding, Denies nocturia, Denies dysuria, Denies urinary incontinence and Denies urinary urgency Musc Reports back pain (on and off - due to her MS) and Denies neck pain Skin/Breast Denies rash Neuro Denies dizziness, Denies headache(s) and Reports weakness (at times, from her MS) Endo Reports fatigue and Denies palpitations Physical exam (Primary Care) Vital Signs: Last Vital Signs Temp 97.3 F 02/24/25 12:59 Pulse 70 02/24/25 12:59 BP 130/68 02/24/25 12:59 Pulse Ox 96 02/24/25 12:59 Oxygen Delivery Method Room Air 02/24/25 12:59 BMI result Body Mass Index 30.2 Tobacco/Smoking Status: Tobacco use Status Tobacco use date assessed 02/24/25 02/24/25 13:03 Patient Tobacco Use Status Former Tobacco user 02/24/25 13:03 Tobacco use type Cigarette 02/24/25 13:03 e-Cigarette/Vaping Use Never Used 02/24/25 13:03 PHQ-9: PHQ-9 Score PHQ-9: Total score 4 02/24/25 13:09 Depression Screening Interpretation: Positive Depression Screening Follow-up: Existing condition and In treatment Thrive Assessment: Date of Thrive Assessment Date Thrive assessed 07/23/24 02/24/25 13:03 Currently or been in a relationship where the following occur: No concerns reported Const General: no acute distress and alert HENMT Ears: TM's normal bilaterally and EAC's normal Throat: Yes posterior oropharynx normal and Yes tonsils normal (no TP congestion noted) Neck Neck: Yes no lymphadenopathy and Yes supple Thyroid: Thyroid normal Resp Auscultation: clear to auscultation bilaterally, no rales and no wheezes Cardio Rate: regular rate Rhythm: regular rhythm Heart sounds: no murmurs GI Palpation (GI): Soft to palpation and nontender Auscultation: normal bowel sounds General: Yes no CVA tenderness Back/Spine/Pelvis Back: no CVA tenderness Thoracic/Lumbar Spine: No lumbar spinal tenderness Skin Rashes: no rashes Extrem General: Yes no clubbing, cyanosis or edema Right lower extremity: knee Details: tenderness (mild) and normal ROM; no swelling Office Procedures Flu Questionnaire Does the patient have a severe egg allergy?: No Does the patient have severe life threatening allergies?: No Does the patient have a fever or illness today?: No Has the patient ever had Guillain-[place] Syndrome?: No Has the patient ever had any past reaction to a flu shot?: No Immunizations Fluarix [id number] (PF) 45 mcg (15 mcg x 3)/0.5 mL IM syringe Performing Provider: Sreedhar Patricia MD [facility] Administered by: Lynn Eckert CMA on 02/24/25 13:08 Dose Route Admin Location Dispensed Lot Number Expiration Date NDC [employer] 0.5 mL IM Left Deltoid 0.5 mL [id number] 11/10/25 [id number] [employer] VIS Given Date VIS Provided VIS Publication Date 02/24/25 Single Vaccine 24 Eligibility Eligibility Date Funding Source Not [facility] Eligible 02/24/25 Private Results Reviewed Results Reviewed: Laboratory Tests 07/15/24 02/17/25 07:05 06:48 WBC 6.3 Hgb 13.0 Hct 40.5 Plt Count 196 Sodium 146 H Potassium 4.0 Creatinine 0.78 Estimated GFR > 60 Fasting Glucose 100 H Hemoglobin A1c % 5.7 Calcium 9.1 D AST 29 ALT 32 H Triglycerides 86 Cholesterol 145 LDL Cholesterol, Calc 73 HDL Cholesterol 55 25-OH Vitamin D Total 32.2 TSH 1.61 Ur Specific [place] 1.015 Urine Protein Negative Urine Glucose (UA) Negative Urine Blood Negative Urine Nitrite Negative Ur Leukocyte Esterase Negative Coding Level of Care Code Est Pt Level 4 (28487) Diagnoses Pure hypercholesterolemia E78.00 Multiple sclerosis G35 Irritable bowel syndrome, unspecified type K58.9 Irritable bowel syndrome type: unspecified Bandemia D72.825 Leukocytosis type: bandemia Chronic obstructive pulmonary disease, unspecified COPD type J44.9 COPD type: unspecified COPD Impaired fasting glucose R73.01 Primary osteoarthritis of right knee M17.11 Anemia, unspecified type D64.9 Anemia type: unspecified type Restless leg syndrome G25.81 Anxiety F41.9 Bipolar depression F31.9 Overweight (BMI 25.0-29.9) E66.3 Additional Codes PHQ-9 - 92436 - PHQ-9 Billing: Yes ([id number]) Assessment & Plan Assessment & Plan (1) Pure hypercholesterolemia: Code(s): E78.00 - Pure hypercholesterolemia, unspecified Category: Medical Plan: Results of her labs done last week reviewed and discussed with patient Reinforced low cholesterol diet Continue Rosuvastatin 10 mg QD - Rx refilled Will recheck her labs and fasting lipids in 4 months for follow up (2) Multiple sclerosis: Code(s): G35 - Multiple sclerosis Category: Medical Plan: Continue Carisoprodol 350 mg TID and Gabapentin 600 mg TID She is still getting IV Solumedrol monthly for her MS Follow up with neurology (Dr. Larkin) as scheduled - her MS has been reportedly stable from neurology standpoint (3) Irritable bowel syndrome (IBS): Code(s): K58.9 - Irritable bowel syndrome, unspecified Category: Medical Qualifiers: Irritable bowel syndrome type: unspecified Qualified Code(s): K58.9 - Irritable bowel syndrome without diarrhea Plan: Patient states that her previous GI symptoms (abdominal pain, diarrhea/loose stools) have all resolved and she currently has no acute issues Abdominal US done back in July 2023 reported some tenderness noted when scanning over the gallbladder area but there were no findings at the time to suggest cholecystitis. There was also dilatation of the CBD noted as well as some atherosclerotic plaques seen within the distal abdominal aorta Follow up with GI as scheduled (4) Leukocytosis (leucocytosis): Code(s): D72.829 - Elevated white blood cell count, unspecified Category: Medical Qualifiers: Leukocytosis type: bandemia Qualified Code(s): D72.825 - Bandemia Plan: This appears to have RESOLVED as her WBC count has been normal on her labs over the past year May have been due to one of her psychiatric Rx or from her Solumedrol infusions Will continue to monitor her CBC regularly (5) Chronic obstructive pulmonary disease (COPD): Comment: (+) interstitial fibrosis of the lungs Code(s): J44.9 - Chronic obstructive pulmonary disease, unspecified Category: Medical Qualifiers: COPD type: unspecified COPD Qualified Code(s): J44.9 - Chronic obstructive pulmonary disease, unspecified Plan: Controlled Continue Albuterol HFA 1 to 2 inhalations Q 6 hours PRN Follow up with pulmonary as scheduled (6) Impaired fasting glucose: Code(s): R73.01 - Impaired fasting glucose Category: Medical Plan: Her FBS was at 100 mg/dl on her recent labs done last week; HgbA1c was normal at 5.7% HgbA1c was at 5.9% and 5.5% when previously checked Reinforced low calorie/low carb diet Have reminded patient that her regular Solumedrol IV infusions may be affecting her blood sugar to some extent Will continue to monitor her FBS and HgbA1c regularly (7) Primary osteoarthritis of right knee: Comment: S/P total right knee arthroplasty on 06/21/2021 Code(s): M17.11 - Unilateral primary osteoarthritis, right knee Category: Medical Plan: S/P total right knee arthroplasty on 06/21/[address] Rodarte States that she has been doing well since; S/P physical therapy, which patient states have also helped a lot Continue Tramadol 50 mg - she takes this only PRN for pain Follow up with orthopedics as scheduled (8) Anemia: Code(s): D64.9 - Anemia, unspecified Category: Medical Qualifiers: Anemia type: unspecified type Qualified Code(s): D64.9 - Anemia, unspecified Plan: RESOLVED; patient's H/H remained normal on her recent labs This was most likely due to intraop and postop bleeding during her orthopedic surgery Patient is currently clinically asymptomatic; will continue to monitor her CBC periodically (9) Restless leg syndrome: Code(s): G25.81 - Restless legs syndrome Category: Medical Plan: Continue Pramipexole 0.5 mg Q HS (10) Anxiety: Code(s): F41.9 - Anxiety disorder, unspecified Category: Medical Plan: Continue Lorazepam 1 mg BID PRN and Buspirone 5 mg QD Follow up with psychiatry as scheduled (11) Bipolar depression: Code(s): F31.9 - Bipolar disorder, unspecified Category: Medical Plan: Continue Aripiprazole 30 mg QD, Mirtazapine 45 mg Q HS and Trintellix 20 mg QD Follow up with psychiatry as scheduled - she sees her psychiatrist regularly every 6 weeks (12) Overweight (BMI 25.0-29.9): Code(s): E66.3 - Overweight Category: Medical Plan: Reinforced diet/exercise as tolerated/lose weight Plan Per request, flu shot given to patient today Follow up in 4 months Orders: Orders Complete Blood Count Auto Diff 4 Months D64.9 - Anemia, unspecified TSH reflex Free T4 4 Months E78.00 - Pure hypercholesterolemia, unspecified Influenza [id number] Immunization Today Z23 - Encounter for immunization Hemoglobin A1c 4 Months E11.9 - Type 2 diabetes mellitus without complications Comprehensive [place]. Panel Fast 4 Months E78.00 - Pure hypercholesterolemia, unspecified Lipid Panel 4 Months E78.00 - Pure hypercholesterolemia, unspecified UA CC w/rflx Micro + Cult 4 Months R30.0 - Dysuria Vitamin D 25-OH Total 4 Months E55.9 - Vitamin D deficiency, unspecified Medications: Refilled rosuvastatin 10 mg PO BEDTIME 90 tabs 3RF 90 days montelukast 10 mg PO DAILY 90 tabs 3RF
[2025-02-24 12:59] VITALS: BP 130/68; PULSE 70; TEMP 36.3; O2SAT 96; BMI 30.2
--- OUTSIDE RECORDS SUMMARY | 2025-02-24 15:34 | XMS_ITS | Patient Health Record ---
Author Organization [facility] Address [address] [facility] [place] [address] Care Team Providers Care Oil Well Gun Perforator Operator Name Role Phone Harshad CRAMER, [place] Primary Care Provider Lisa Siegel Unavailable [phone] Allergies No Known Allergies Reason For Referral [...] 06/25/2024 Encounters Encounter Location Date Provider Diagnosis [address] [address] 04/15/2024 Lisa Perica Fungal infection of nail B35.1 ; Pain in left toe(s) M79.675 and Pain in right toe(s) M79.[address] [address] 06/25/2024 Lisa Perica Fungal infection of nail B35.1 ; Tinea pedis of both feet B35.3 ; Pain in left toe(s) M79.675 and Pain in right toe(s) M79.[address] [address] 06/25/2024 Lisa Perica [address] [address] 08/07/2024 Lisa Liu Assessments Encounter Date Diagnosis (ICD Code) Assessment Notes Treatment Notes Treatment Clinical Notes Section Notes 04/15/2024 Pain in left toe(s) (ICD-10 - [...] (LFT) 06/15/2023 *Liver Function Test (LFT) 08/24/2023 Insurance Providers Payer Name Payer Address Payer Phone Subscriber Number Group Number Insured Name Patient Relationship to Insured Coverage Start Date Coverage End Date Medicare National [employer] [address] [place] [address] [id number] Kathleen Barrios Self - patient is the insured for Life [address] [place] [address] [id number] Kathleen Barrios Self - patient is the insured Medical (General) History Medical History History ICD Code Anemia Anxiety Arthritis CAD (Cholesterol) Depression Lung disease Multiple sclerosis Measles Mumps Chicken pox Joint implants/screws Surgical History Surgery Date(Month/Year) knee replacement 06/2020 back surgery 2001 tubal ligation 1986
== END 2025-02-24 13:44 | disposition home or self-care (01) ==
LOC: HO.HMCH 12:54
PROVIDERS: PCP Internal Medicine; Visit Provider Internal Medicine
DX: J44.9 Chronic obstructive pulmonary disease, unspecified (principal); G35.D Multiple sclerosis, unspecified; F31.9 Bipolar disorder, unspecified; E78.00 Pure hypercholesterolemia, unspecified; K58.9 Irritable bowel syndrome, unspecified; D72.825 Bandemia; R73.01 Impaired fasting glucose; M17.11 Unilateral primary osteoarthritis, right knee; D64.9 Anemia, unspecified; G25.81 Restless legs syndrome; E66.3 Overweight; Z23 Encounter for immunization

== ENCOUNTER → 2025-02-24 12:53 | Outpatient (BNVA) | payer MEDICARE, OTHER, SELFPAY | PROVIDERS: PCP Internal Medicine; Visit Provider Internal Medicine | DX: E66.3 Overweight (principal); G35.D Multiple sclerosis, unspecified; E78.00 Pure hypercholesterolemia, unspecified; K58.9 Irritable bowel syndrome, unspecified; D72.825 Bandemia; J44.9 Chronic obstructive pulmonary disease, unspecified; R73.01 Impaired fasting glucose; M17.11 Unilateral primary osteoarthritis, right knee; D64.9 Anemia, unspecified; G25.81 Restless legs syndrome; F41.9 Anxiety disorder, unspecified; F31.9 Bipolar disorder, unspecified; Z23 Encounter for immunization; Z68.30 Body mass index [BMI] 30.0-30.9, adult | CPT/HCPCS: 90471; 90656; 96127; 99212 ==

== ENCOUNTER 2025-04-16 08:10 | Outpatient (AMB) | payer MEDICARE, OTHER, SELFPAY ==
--- OUTSIDE RECORDS SUMMARY | 2024-09-01 09:00 | XMS_ITS ---
Author Organization [facility] Address [address] [facility] [place] [address] Care Team Providers Care Svp Research & Ebusiness Operations Name Role Phone Sreedhar Patricia MD Primary Care Provider Unava ilable Lisa Lui Unavailable [phone] Encounters Encounter Location Date Provider Diagnosis [address] [address] 09/01/2024 Lisa Liu Plan Of Treatment No Information Progress Notes * Kathleen BARRIOS MDOB:1955 ( 70 yo F)Acc No.[id number]:09/01/2024 Progress Note Patient: Kathleen LARRY Provider: Lucretia Liu DPM :1955 A ge:69 Y S ex:Female Date:09/01/2024 Address:[address], [address] [place] Pcp:Sreedhar Patricia MD Subjective: * Chief Complaints: [...] 09/01/2024 Generated for Susanna manzano/Lotus/eTransmitting on: 1 06/17/2024 08:20 AM EST
--- OUTSIDE RECORDS SUMMARY | 2025-04-16 08:20 | XMS_ITS | Patient Health Record ---
Author Organization [facility] Address [address] [place] [address] Care Team Providers Care Recording Clerk Name Role Phone Harshad CRAMER, [place] Primary Care Provider Lisa Siegel Unavailable [phone] Allergies No Known Allergies Reason For Referral [...] 06/25/2024 Encounters Encounter Location Date Provider Diagnosis [facility] [address] 06/25/2024 Lisa Liu Fungal infection of nail B35.1 ; Tinea pedis of both feet B35.3 ; Pain in left toe(s) M79.675 and Pain in right toe(s) M79.[address] [facility] [address] 06/25/[address] [facility] [address] 08/07/2024 Lisa Liu Assessments Encounter Date Diagnosis [...] Medicare National Govt [employer] [address] [place] [address] [id number] Kathleen Barrios Self - patient is the insured [employer] [address] [place] [address] [id number] Kathleen Barrios Self - patient is the insured Medical (General) History Medical History History ICD Code Anemia Anxiety Arthritis CAD (Cholesterol) Depression Lung disease Multiple sclerosis Measles Mumps Chicken pox Joint implants/screws Surgical History Surgery Date(Month/Year) knee replacement 06/2020 back surgery 2001 tubal ligation 1985
--- NOTE | 2025-04-16 08:32 | A.OFFVIS_ITS ---
Intake Visit Reasons: 6m Allergies codeine (Codeine) Adverse Reaction (Mild, Verified 04/16/25 08:37) UPSET STOMACH AND BAD DREAMS Medication List - Last Reconciled 04/16/25 by Concepcion Lockhart CNP albuterol sulfate 90 mcg/actuation 2 puffs inhalation Q4-6H PRN aripiprazole (Abilify) 30 mg PO DAILY buspirone 5 mg PO DAILY carisoprodol 350 mg PO TID 30 days gabapentin 600 mg PO TID 30 days lorazepam 1 mg PO BID mirtazapine 45 mg PO BEDTIME montelukast 10 mg PO DAILY pramipexole 0.5 mg orally 1 tab in the afternoon and 2 tabs in the evening; 30 days rosuvastatin 10 mg PO BEDTIME 90 days [solu medrol IV IV .once a month] vortioxetine (Trintellix) 20 mg PO DAILY HPI Comments Details: She was doing okay. Balance was off, and legs feel weak, R > L. She did not do PT due to transportation issues. Had one fall a few months ago without injury. She was doing well with monthly Solu-Medrol infusions, can tell next due around third week, feels she starts dragging right foot more. Next infusion scheduled for 04/29/2025. No pain, numbness or tingling. No headaches or dizziness. RLS symptoms controlled with pramipexole. Sleep was okay. Mood was okay, but she was under some more stress recently as significant other was dealing with some health issues. She was working with therapist and psychiatrist. Restless sx in RLE that affects sleep. She has chronic MS that has been stable with significant elements of anxiety and depression and stress related to her children and sometimes results in conversion reactions. Had one episode with hard time speaking for 2 hours under extreme stress in November 2013. For the last couple of years she's been doing generally well. Stress has been better as son has hemochromatosis and not liver CA. Bladder control is normal with urgency. She reports no cognitive problems. [facility] Medical History Restless leg syndrome Anemia Obesity (BMI 30-39.9) Primary osteoarthritis of right knee Anxiety Bipolar depression Irritable bowel syndrome (IBS) Multiple sclerosis Chronic obstructive pulmonary disease (COPD) Normal colonoscopy Pure hypercholesterolemia Surgical History Hx of colonoscopy Hx of arthroscopic knee surgery History of tubal ligation H/O knee surgery History of back surgery Family History Mother Lung cancer, Onset Age: 56 Father Heart problem Social History Housing: Apartment Are you a primary patient care associate to a significant other at home: No Do you presently have visiting nurse or other home services: No Alcohol intake: never Patient Tobacco Use Status: Former Tobacco user Tobacco use type: Cigarette e-Cigarette/Vaping Use: Never Used Second Hand Smoke Exposure: Yes service: No Current occupational status: retired 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 Cognitive needs: No Hearing needs: No Vision needs: Yes Review of Systems Const Denies chills, Denies daytime sleepiness, Denies difficulty sleeping, Denies fatigue, Denies fever(s), Denies frequent falls, Denies headache(s), Denies increased appetite, Denies poor appetite, Denies snoring, Denies weakness, Denies weight gain and Denies weight loss Eyes Denies loss of vision ENT Denies vertigo, Denies dizziness, Denies headache(s) and Denies neck pain Card Denies chest pain at rest, Denies chest pain with activity, Denies syncope, Denies leg edema, Denies palpitations, Denies dyspnea and Denies dyspnea on exertion Resp Denies cough, Denies dyspnea, Denies dyspnea on exertion and Denies snoring GI Denies abdominal pain, Denies constipation, Denies heartburn, Denies diarrhea and Denies nausea Denies urinary frequency, Denies urinary incontinence and Denies urinary urgency Musc Denies abnormal gait, Reports back pain, Denies myalgias, Denies arthralgias, Denies neck pain, Denies numbness and Denies tingling Neuro Denies abnormal gait, Denies vertigo, Denies dizziness, Denies syncope, Denies frequent falls, Denies headache(s), Denies lack of coordination, Denies loss of vision, Denies memory loss, Denies numbness, Denies Other visual disturbances, Denies restless legs, Denies seizure-like activity, Denies tingling, Denies paresthesias, Denies tremor(s), Denies weakness and Reports other (balance difficulty) Psych Denies anxiety, Denies depression, Denies auditory hallucinations, Denies memory loss and Denies visual hallucinations Endo Denies fatigue and Denies palpitations Physical Exam Const Other: General Appearance:? normal, in no acute distress. Heart:? S1, S2 normal, no murmurs. Lungs:? clear anteriorly and posteriorly. Musculoskeletal:? normal. Extremities:? no edema. Psych:? alert, oriented, cognitive function intact, cooperative with exam. 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 5-/5 R quad. Slightly reduced facial expressions. Mental Status: alert and oriented X 3. Normal attention, orientation, memory, and affect. Cranial Nerves: Pupils are equal, round, and reactive to light. External ocular muscles are intact. Visual oden are full, no ptosis. Face is symmetrical, no facial weakness or droop. Facial sensations are normal. Tongue protrudes in midline. Palate elevates symmetrically. Shoulder shrugging is normal Motor Examination: As above. Sensory Exam: Normal light touch, temperature, pinprick, vibration, and joint- position sensations. Rhomberg sign is absent. Coordination: No ataxia. No titubation. Gait Exam: Within normal limits. Cerebellar Signs: [id number] is okay. Extrapyramidal System: No tremor. No rigidity. Slightly reduced facial expressions. No bradykinesia. No bradyphrenia. Normal arm swing and posture. No propulsion or retropulsion. Speech: Normal. Results Reviewed Results Reviewed: 05/04/22 MRI brain and C spine are stable with no new lesions or enhancement. Assessment & Plan Assessment & Plan (1) Multiple sclerosis: Code(s): G35 - Multiple sclerosis Category: Medical Plan: Continue Solu-Medrol Solution Reconstitued 1000mg in 100mL NS IV infusion over 1 hour monthly. Continue gabapentin 600mg 1 tablet three times a day. Continue carisoprodol 350mg 1 tablet three times a day. She was not interested in PT at this time. Last MRI brain and C-spine was in 2021, MRI brain and C-spine W&WO contrast ordered. Follow up in 3 months or sooner as needed. (2) Restless leg syndrome: Code(s): G25.81 - Restless legs syndrome Category: Medical Plan: Continue pramipexole 0.5mg 1 tablet in the afternoon and 2 tablets in the evening. Orders: Orders MR head/brain wo/w con Today G35 - Multiple sclerosis MR cervical spine wo/w con Today G35 - Multiple sclerosis Coding Level of Care Code Est Pt Level 4 (64457) Diagnoses Multiple sclerosis G35 Restless leg syndrome G25.81
== END 2025-04-16 08:52 | disposition home or self-care (01) ==
LOC: HO.HSM 08:11
PROVIDERS: PCP Internal Medicine; Referring Provider Internal Medicine; Visit Provider Registered Nurse
DX: G35.D Multiple sclerosis, unspecified (principal); G25.81 Restless legs syndrome
CPT/HCPCS: 99214

== ENCOUNTER → 2025-04-16 08:10 | Outpatient (BNVA) | payer MEDICARE, OTHER, SELFPAY | PROVIDERS: PCP Internal Medicine; Referring Provider Internal Medicine; Visit Provider Registered Nurse | DX: G25.81 Restless legs syndrome (principal); G35.D Multiple sclerosis, unspecified | CPT/HCPCS: 99212 ==

== ENCOUNTER 2025-05-05 12:51 | Outpatient (REF) | payer MEDICARE, OTHER, SELFPAY ==
--- OUTSIDE RECORDS SUMMARY | 2024-09-01 09:00 | XMS_ITS ---
Author Organization [facility] Address [address] [place] [address] Care Team Providers Care Anesthesia Attending Name Role Phone Sreedhar Patricia MD Primary Care Provider Unava ilable Lisa Liu Unavailable [phone] Encounters Encounter Location Date Provider Diagnosis [address] [address] 09/01/2024 Lisa Liu Plan Of Treatment No Information Progress Notes * Kathleen BARRIOS MDOB:1955 ( 70 yo F)Acc No.[id number]:09/01/2024 Progress Note Patient: Kathleen LARRY Provider: Lucretia Liu DPM :1955 A ge:69 Y S ex:Female Date:09/01/2024 Address:[address], [address] [place] [place] Pcp:Sreedhar Patricia MD Subjective: * Chief Complaints: * * Medical History: Objective: * Vitals: Assessment: Plan: * Treatment: * Images: * The named appointment provid er may or may not be the originator of this progress note, and it is not deemed complete until electronically signed by the appointment provider. Sign off status: Pending * Provider: Lucretia Liu DPM Date: 0 09/01/2024 Generated for Susanna manzano/Lotus/eTransmitting on: 1 07/06/2024 01:55 PM EST
--- NOTE | ~2025-05-05 | MR_ITS ---
EXAMINATION: MR CERVICAL SPINE WITHOUT AND WITH CONTRAST CLINICAL INFORMATION: History of multiple sclerosis for 35 years. No new symptoms. Neck pain. COMPARISON: None available. TECHNIQUE: MRI of the cervical spine was obtained using routine sequences with and without contrast. Intravenous contrast: Magnevist 7.5 mL. FINDINGS: There is mild straightening of cervical lordosis with grade 1 anterolisthesis C3 over C4 and minimal C4 over C5. Rest the vertebral alignment is preserved. The craniovertebral junction and the C1-C2 alignment is normal. There is loss of disc height at C3-4-C5, C5-6, C6 testis 7 and C7-T1 disc levels. There is disc desiccation changes at all disc levels. At C3-4 disc level is anterolisthesis with mild bulge/osteophyte complex with mild flattening of ventral thecal sac but no spinal canal stenosis seen. There is minimal left neural foraminal narrowing from facet joint arthropathy. The right neural foramina is patent. At C4-5 disc level there is a disc osteophyte complex slightly eccentric to the right side completely effacing the right ventral thecal sac with disc osteophyte/complex contacting the ventral cord. There is mild spinal canal stenosis. The neural foramina are moderately narrowed bilaterally from underlying uncovertebral hypertrophic changes. At C5-C6 disc level there is a disc/osteophyte complex flattening the cord and the ventral thecal sac resulting in mild AP canal stenosis. The neural foramina are moderately narrowed bilaterally from uncovertebral and bilateral mild facet joint hypertrophic changes. At C6-7 disc level there is mild disc osteophyte complex with mild AP canal stenosis. There is bilateral mild to moderate narrowing of neural foramina from uncovertebral and mild facet joint hypertrophic changes. At C7-T1 disc level there is no significant disc bulge, herniation or spinal canal stenosis. The neural foramina are mildly narrowed bilaterally from uncovertebral hypertrophic The cervical-medullary junction appears normal. There is faint minimal T2 hyperintensity in posterior and mid spinal cord posterior to C2-3 disc level. Focal appendix is seen in left spinal cord at the C3 vertebra. There is a dense central cord hyperintensity at the C3 5-6 disc level. There are no new areas of hyperdensity seen. Postcontrast there is no abnormal enhancement seen in spinal canal or the cord at this time. No abnormal signal or enhancement seen in the bone marrow or the paravertebral soft . Incidental finding of tiny disc central disc herniation at 3 2-4 disc level. MR/MR cervical spine wo/w con IMPRESSION: Stable nonenhancing cord lesions as described above without any abnormal enhancement. Should radiosurgical lordosis, degenerative disc changes most prominent at the C4-5 and C5-6 disc levels with moderate disc osteophyte complex resulting in AP canal stenosis. Bilateral neural from narrowing is also noted in the same disc levels. Less intense disc bulge osteophyte complex at other disc levels as described above. Electronically signed by: Dom Reeves MD 05/06/2025 08:04 AM MICHELLE
--- NOTE | ~2025-05-05 | MR_ITS ---
EXAMINATION: MR BRAIN WITHOUT THEN WITH IV CONTRAST CLINICAL INFORMATION: G35 - Multiple sclerosis COMPARISON: Brain MRI on April 14, 2022 TECHNIQUE: Multiplanar, multisequence MRI of the brain was obtained before and after the intravenous administration of 7.5 ml contrast gadolinium Gadavist. FINDINGS: Brain parenchyma: Allowing to differences in technical parameters and slice selection, multiple nonenhancing T2/FLAIR hyperintense white matter lesions are essentially unchanged in pattern and distribution from April 2022. No definite new or enlarging white matter lesions. No shift of midline structures. No evidence of acute infarct, mass lesion or parenchymal hemorrhage. No abnormal parenchymal enhancement. Ventricles/extra-axial spaces: No hydrocephalus. No extra-axial fluid collection. Extra cranial structures: Arterial flow voids in the skull base are preserved. Minimal mucosal thickening of the paranasal sinuses. Bilateral mastoid air cells are clear. Bilateral orbital globes are unremarkable. MR/MR head/brain wo/w con IMPRESSION: 1. No acute intracranial abnormality. 2. Overall unchanged nonenhancing white matter lesions compatible with provided diagnosis of multiple sclerosis. No definite new or enlarging lesion or abnormal enhancement. Electronically signed by: Vin Molina MD 05/06/2025 08:09 AM EST
--- OUTSIDE RECORDS SUMMARY | 2025-05-05 13:55 | XMS_ITS | Patient Health Record ---
Author Organization [facility] Address [address] 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 Name Role Phone Harshad CRAMER, [place] Primary Care Provider Lisa Siegel Unavailable [phone] Allergies No Known Allergies Reason For Referral [...] 06/25/2024 Encounters Encounter Location Date Provider Diagnosis [facility] [address] 06/25/2024 Lisa Liu Fungal infection of nail B35.1 ; Tinea pedis of both feet B35.3 ; Pain in left toe(s) M79.675 and Pain in right toe(s) M79.[address] [facility] [address] 06/25/2024 Lisa Liu [facility] [address] 08/07/2024 Lisa Liu Assessments Encounter Date Diagnosis [...] Medicare [employer] [address] [place] [address] [id number] Kathleen Barrios Self - patient is the insured [employer] [address] [place] [address] [id number] Kathleen Barrios Self - patient is the insured Medical (General) History Medical History History ICD Code Anemia Anxiety Arthritis CAD (Cholesterol) Depression Lung disease Multiple sclerosis Measles Mumps Chicken pox Joint implants/screws Surgical History Surgery Date(Month/Year) knee replacement 06/2020 back surgery 2001 tubal ligation 1985
== END 2025-05-05 12:52 | disposition home or self-care (01) ==
LOC: HO.MRI 12:51
PROVIDERS: PCP Internal Medicine; Visit Provider Registered Nurse
DX: G35.D Multiple sclerosis, unspecified (principal)
CPT/HCPCS: 70553; 72156; A9585

== ENCOUNTER → 2025-05-05 12:58 | Outpatient (BNV) | payer MEDICARE, OTHER, SELFPAY | PROVIDERS: PCP Internal Medicine; Visit Provider Radiology Body Imaging | DX: G35.D Multiple sclerosis, unspecified (principal) | CPT/HCPCS: 70553; 72156 ==